=== PATIENT | female | born 1945 | race Caucasian/White ===

== ENCOUNTER → 2017-07-29 17:24 | Emergency (ER) | payer MEDICARE, BC ==
[~2017-07-29 17:24] MED LIST: Cephalexin CAP* 500 MG PO ONE; DOXYcycline CAP(*) 100 MG ONE; DOXYcycline CAP(*) 100 MG PO ONE; NS 0.9% 1000 ML* 1,000 ML IV ONE; ceFAZolin 1 GM VIAL(*) 1 GM in NS 0.9% 50 ML* 50 ML IVPB ONE
[2017-07-29 20:22] LABS: Hematocrit 38 % (35-47); Mean Corpuscular HGB Conc 34 g/dl (31-36); Mean Corpuscular Hemoglobin 31 pg (27-31); Mean Corpuscular Volume 90 fL (80-97); Mean Platelet Volume 7 um3 (7.4-10.4); Red Cell Distribution Width 13 % (10.5-15); White Blood Count 13.2 10^3/ul (3.5-10.8)
--- NOTE | 2017-07-29 20:22 | RAD ---
INDICATION: Wound overlying the second metacarpal the left hand COMPARISON: None. TECHNIQUE: 2 views of the left hand were obtained. FINDINGS: On the lateral view of the left and there is slight cortical disruption along the dorsal aspect of a distal metatarsal head. Overlap of the metatarsals and poor hand positioning prevents determination of which metacarpal this is. Degenerative changes include narrowing of the intercarpal joints as well as the thumb metacarpal trapezium joint. Subchondral lucencies are seen overlying the carpal joints. There is mild narrowing of the interphalangeal joints as well. IMPRESSION: 1. Questionable cortical discontinuity involving the dorsal aspect of one of the left metatarsal distal heads. Overlap of the metatarsals and poor hand positioning prevents confident determination of which metatarsal head versus and whether it corresponds to the patient's superficial wound. If clinically warranted repeat imaging with the hand making the "ok" sign as well as oblique images may be useful. 2. Degenerative changes as described above.
[2017-07-29 20:35] LABS: Albumin 3.9 g/dL (3.2-5.2); BUN/Creatinine Ratio 12.5 (8-20); C Reactive Protein 71.73 mg/L (< 5.00); Calcium 9.7 mg/dL (8.6-10.3); EGFR Non-African American 107.3 (>60); Globulin 3.2 g/dL (2-4); Potassium 3.2 mmol/L (3.5-5.0); Total Bilirubin 0.3 mg/dL (0.2-1.0); Total Protein 7.1 g/dL (6.4-8.9)
--- NOTE | 2017-07-29 21:10 | ED ---
Kimberley Jarrell Alfonso, scribed for Romana Boyd MD on 07/29/17 at 1932 . Upper Extremity Pain - HPI Summary HPI Summary: This patient is a 71 year old F presenting to [facility] accompanied by daughter with a chief complaint of left hand wound since yesterday. The patient rates the pain 1/10 in severity. Symptoms aggravated by nothing. Symptoms alleviated by nothing. Patient reports erythema and red streak. - History of Current Complaint Chief Complaint: EDExtremityUpper Stated Complaint: POSS SEPSIS LT HAND/SENT BY STEFAN Time Seen by Provider: 07/29/17 19:06 Hx Obtained From: Patient Onset/Duration: Started Days Ago, Still Present Timing: Constant Severity Initially: Moderate Severity Currently: Moderate Pain Location: Hand - left Aggravating Factor(s): Nothing Alleviating Factor(s): Nothing Associated Signs & Symptoms: Positive: Other - red streak and erythema - Allergies/Home Medications Allergies/Adverse Reactions: Allergies Allergy/AdvReac Type Severity Reaction Status Date / Time Sulfamethoxazole Allergy Rash Verified 05/02/15 07:54 w/Trimethoprim [From Bactrim] POWDER IN ALL GLOVES Allergy Itching Uncoded 05/02/15 07:54 PMH/Surg Hx/FS Hx/Imm Hx GI History: Reports: Hx Gastroesophageal Reflux Disease - ON PRILOSEC FOR, Hx Hiatal Hernia Musculoskeletal History: Reports: Hx Arthritis - SPINE Sensory History: Reports: Hx Cataracts - BILATERAL, Hx Contacts or Glasses - GLASSES, Hx Hearing Aid - BILATERAL ONLY WEARS IN THE LEFT EAR Opthamlomology History: Reports: Hx Cataracts - BILATERAL, Hx Contacts or Glasses - GLASSES Neurological History: Reports: Hx Seizures - 3 SEIZURES- WHILE BEING SICK- 3 YEARS AGO - Surgical History Surgery Procedure, Year, and Place: 1990- RIGHT LOWER LOBECTOMY. GALLBLADDER AND GALLSTONES REMOVED- 1992-[facility]. 1970- TUBAL LIGATION. ENDOSCOPIES Hx Anesthesia Reactions: Yes - [facility]- HAD A HARD TIME WAKING UP-1992 Infectious Disease History: No Infectious Disease History: Denies: Traveled Outside the [place] in Last 30 Days - Family History Known Family History: Positive: Hypertension - Social History Alcohol Use: None Substance Use Type: Reports: None Smoking Status (MU): Light Every Day Tobacco Smoker Type: Cigarettes Amount Used/How Often: 1/2 PPD X 25 YEARS ON AND OFF Have You Smoked in the Last Year: Yes Review of Systems Negative: Fever Positive: Other - left hand wound, erythema, and red streak. All Other Systems Reviewed And Are Negative: Yes Physical Exam Triage Information Reviewed: Yes Vital Signs On Initial Exam: Initial Vitals Temp Pulse Resp BP Pulse Ox 99.9 F 95 20 160/75 97 07/29/17 17:33 07/29/17 17:33 07/29/17 17:33 07/29/17 17:33 07/29/17 17:33 Vital Signs Reviewed: Yes Appearance: Positive: Well-Appearing, No Pain Distress Skin: Positive: Warm, Skin Color Reflects Adequate Perfusion, Dry, Other - Incision and cautery site at the mid metacarpal of the second finger left hand. Erythema to MPJ joint 2nd and 3rd finger and red streaking up the arm from the 2nd finger. Eyes: Positive: EOMI, HAM ENT: Positive: Pharynx normal, TMs normal Neck: Positive: Supple, Nontender Respiratory/Lung Sounds: Positive: Clear to Auscultation, Breath Sounds Present. Negative: Rales, Rhonchi, Wheezes Cardiovascular: Positive: RRR, Other - No gallop. Negative: Murmur, Rub Abdomen Description: Positive: Nontender, Soft, Other: - No rebound. Negative: Distended, Guarding Bowel Sounds: Positive: Present Musculoskeletal: Positive: Strength/ROM Intact Neurological: Positive: Sensory/Motor Intact, Alert, Oriented to Person Place, Time, CN Intact II-III Psychiatric: Positive: Affect/Mood Appropriate - Abdulkadir Coma Scale Coma Scale Total: 15 Diagnostics - Vital Signs Vital Signs Temp Pulse Resp BP Pulse Ox 07/29/17 17:33 99.9 F 95 20 160/75 97 - Laboratory Lab Results: Lab Results 07/29/17 07/29/17 07/29/17 Range/Units 20:00 20:00 20:00 WBC 13.2 H (3.5-10.8) 10^3/ul RBC 4.20 (4.0-5.4) 10^6/ul Hgb 13.0 (12.0-16.0) g/dl Hct 38 (35-47) % MCV 90 (80-97) fL MCH 31 (27-31) pg MCHC 34 (31-36) g/dl RDW 13 (10.5-15) % Plt Count 443 (150-450) 10^3/ul MPV 7 L (7.4-10.4) um3 Neut % (Auto) 72.3 (38-83) % Lymph % (Auto) 17.6 L (25-47) % Schuyler % (Auto) 8.1 (1-9) % Eos % (Auto) 1.1 (0-6) % Baso % (Auto) 0.9 (0-2) % Absolute Neuts (auto) 9.6 H (1.5-7.7) 10^3/ul Absolute Lymphs (auto) 2.3 (1.0-4.8) 10^3/ul Absolute Monos (auto) 1.1 H (0-0.8) 10^3/ul Absolute Eos (auto) 0.1 (0-0.6) 10^3/ul Absolute Basos (auto) 0.1 (0-0.2) 10^3/ul Absolute Nucleated RBC 0 10^3/ul Nucleated RBC % 0 Sodium 129 L (133-145) mmol/L Potassium 3.2 L (3.5-5.0) mmol/L Chloride 93 L (101-111) mmol/L Carbon Dioxide 28 (22-32) mmol/L Anion Gap 8 (2-11) mmol/L BUN 7 (6-24) mg/dL Creatinine 0.56 (0.51-0.95) mg/dL Est GFR ( Amer) 138.0 (>60) Est GFR (Non-Af Amer) 107.3 (>60) BUN/Creatinine Ratio 12.5 (8-20) Glucose 173 H (70-100) mg/dL Lactic Acid 1.8 (0.5-2.0) mmol/L Calcium 9.7 (8.6-10.3) mg/dL Total Bilirubin 0.30 (0.2-1.0) mg/dL AST 13 (13-39) U/L ALT 12 (7-52) U/L Alkaline Phosphatase 83 (34-104) U/L C-Reactive Protein 71.73 H (< 5.00) mg/L Total Protein 7.1 (6.4-8.9) g/dL Albumin 3.9 (3.2-5.2) g/dL Globulin 3.2 (2-4) g/dL Albumin/Globulin Ratio 1.2 (1-3) Result Diagrams: 07/29/17 20:00 07/29/17 20:00 Lab Statement: Any lab studies that have been ordered have been reviewed, and results considered in the medical decision making process. - Radiology Hand X-Ray Radiology Interpretation Completed By: Radiologist - 1. Questionable cortical discontinuity involving the dorsal aspect of one of the left metatarsal distal heads. Overlap of the metatarsals and poor hand positioning prevents confident determination of which metatarsal head versus and whether it corresponds to the patient's superficial wound. If clinically warranted repeat imaging with the hand making the "ok" sign as well as oblique images may be useful. 2. Degenerative changes as described above. ED physician has reviewed this radiology report and agrees. Course/Dx - Course Course Of Treatment: this is a 71 yo female who is a smoker that describes recent diagnosis of sinusitis for which she is just starting augmentin. She also had a biopsy for a chronic lesion on her left hand that now looks cellulitic. The erythema extends just over the 2nd mcp joint. She ended up triggering sepsis because of her respiratory rate which according to her and her daughter is a little high because of the sinusitis. She is very well appearing. Her wbc is 13 with an elevated crp in the 70's, the xray of her hand shows a possible lifting of the cortex on the lateral film of the 3rd finger. But the cellulitis does not extend to that area nor does she have any swelling or fluctuance or induration there. I discussed admission with the pt but she would like to try it at home. Of note her blood sugar is also a little high here which may need followup. The plan is to change her meds to doxy to treat the sinusitis and mrsa with keflex - Diagnoses Provider Diagnoses: Cellulitis, Sinusitis Discharge - Discharge Plan Condition: Stable Disposition: HOME Prescriptions: Cephalexin CAP* [Keflex CAP*] 500 mg PO QID #28 cap DOXYcycline CAP(*) [DOXYcycline 100MG CAP(*)] 100 mg PO BID #28 cap The documentation as recorded by the Kimberley ching Alfonso accurately reflects the service I personally performed and the decisions made by me, Romana Boyd MD.
[2017-07-29 21:33] VITALS: BP 109/65
== END | disposition home or self-care (01) ==
LOC: ED 17:24
DX: J32.9 Chronic sinusitis, unspecified (principal); L03.90 Cellulitis, unspecified; F17.210 Nicotine dependence, cigarettes, uncomplicated
CPT/HCPCS: 36415; 80053; 83605; 85025; 86140; 87040; 99283; A9270-GY; J0690

== ENCOUNTER 2018-06-04 11:15 | Emergency (ER) | payer MEDICARE, BC ==
[2018-06-04 11:44] VITALS: BP 149/70
--- NOTE | 2018-06-04 13:01 | UC ---
Laceration HPI - HPI Summary HPI Summary: "Y" shaped altman tear on back of right had. occurred yesterday and a piece of metal in the freezer. no bleeding but does have some redness and she wants to assure it is not infected - History Of Current Complaint Chief Complaint: UCLaceration Stated Complaint: LAC ON HAND Time Seen by Provider: 06/04/18 12:38 Hx Obtained From: Patient Laceration Location: Hand - back of right hand Mechanism Of Injury: Sharp Trauma Onset/Duration: Sudden Onset Pain Intensity: 2 Pain Scale Used: 0-10 Numeric Aggravating Factors: Nothing - Allergies/Home Medications Allergies/Adverse Reactions: Allergies Allergy/AdvReac Type Severity Reaction Status Date / Time sulfamethoxazole Allergy Rash Verified 06/04/18 11:31 [From Bactrim] trimethoprim [From Bactrim] Allergy Rash Verified 06/04/18 11:31 [email or web address] [From Chantix] Allergy Rash Verified 06/04/18 11:31 POWDER IN ALL GLOVES Allergy Itching Uncoded 06/04/18 11:31 Home Medications: Home Medications Acetaminophen [Acetaminophen Extra Strength] 500 mg PO ONCE 06/04/18 [History Confirmed 06/04/18] Albuterol inh POWDER (NF) [Proair Respiclick] 4 puff INH BID 06/04/18 [History Confirmed 06/04/18] Omeprazole CAP* [Prilosec CAP* 20 MG] 80 mg PO BID 06/04/18 [History Confirmed 06/04/18] ceFUROXime TAB(*) [Ceftin TAB 250 MG(*)] 500 mg PO BID 06/04/18 [History Confirmed 06/04/18] predniSONE [Prednisone 20 MG TAB] 20 mg PO QID 06/04/18 [History Confirmed 06/04] PMH/Surg Hx/FS Hx/Imm Hx Previously Healthy: No Respiratory History: Asthma GI/ History: Gastroesophageal Reflux - Surgical History Surgical History: Yes Surgery Procedure, Year, and Place: 1990- RIGHT LOWER LOBECTOMY. GALLBLADDER AND GALLSTONES REMOVED- 1992-[facility]. 1970- TUBAL LIGATION. ENDOSCOPIES - Family History Known Family History: Positive: Hypertension - Social History Occupation: Retired Lives: With Family Alcohol Use: None Substance Use Type: None Smoking Status (MU): Former Smoker Type: Cigarettes Amount Used/How Often: 1/2 PPD X 25 YEARS ON AND OFF Have You Smoked in the Last Year: Yes When Did the Patient Quit Smoking/Using Tobacco: November 2017 - Immunization History Hx Tetanus, Diphtheria Vaccination: Yes - 2014 Vaccination Up to Date: Yes Review of Systems Constitutional: Negative Skin: Other - y shaped lacreation with surrounding erythema and bruising Eyes: Negative ENT: Negative Respiratory: Negative Cardiovascular: Negative Gastrointestinal: Negative Genitourinary: Negative Motor: Negative Neurovascular: Negative Musculoskeletal: Negative Neurological: Negative Psychological: Negative Is Patient Immunocompromised?: No All Other Systems Reviewed And Are Negative: Yes Physical Exam Triage Information Reviewed: Yes Appearance: Well-Appearing, No Pain Distress, Well-Nourished Vital Signs: Initial Vital Signs Temp 98.1 F 06/04/18 11:37 Pulse 84 06/04/18 11:37 Resp 18 06/04/18 11:37 BP 149/70 06/04/18 11:37 Pulse Ox 98 06/04/18 11:37 Vital Signs Reviewed: Yes Eye Exam: Normal Eyes: Positive: Conjunctiva Clear ENT Exam: Normal ENT: Positive: Normal ENT inspection, Hearing grossly normal. Negative: Pharynx normal, Nasal congestion, Trismus, Muffled voice, Hoarse voice Neck exam: Normal Neck: Positive: Supple, Nontender, No Lymphadenopathy Respiratory Exam: Normal Respiratory: Positive: Chest non-tender, No respiratory distress, No accessory muscle use Cardiovascular Exam: Normal Cardiovascular: Positive: RRR, Pulses Normal, Brisk Capillary Refill Musculoskeletal Exam: Normal Musculoskeletal: Positive: Strength Intact, ROM Intact, No Edema Neurological Exam: Normal Neurological: Positive: Alert, Muscle Tone Normal Psychological Exam: Normal Skin: Positive: Other - superficial "Y" shaped skin tear back of right hand well approximated no bleeding surround red bruised skin Laceration Course/Dx - Course/Dx Course Of Treatment: mild soap and water wash, cover with telfa, observe for infection follow with pcp - Differential Dx - Laceration/Wound Provider Diagnoses: skin tear right back of hand, elevated blood pressure without hx of hypertension Discharge - Sign-Out/Discharge Documenting (check all that apply): Patient Departure - Discharge Plan Condition: Stable Disposition: HOME Patient Education Materials: Hypertension (ED), Skin Tear (ED) Referrals: Andrea Su MD [Primary Care Provider] - 1 Week - Billing Disposition and Condition Condition: STABLE Disposition: Home
== END 2018-06-04 12:51 | disposition home or self-care (01) ==
LOC: UCEAST 11:15
DX: S61.412A Laceration without foreign body of left hand, initial encounter (principal); W26.8XXA Contact with other sharp object(s), not elsewhere classified, initial encounter; Y93.9 Activity, unspecified; Y99.9 Unspecified external cause status; R03.0 Elevated blood-pressure reading, without diagnosis of hypertension
CPT/HCPCS: 99212; G0463

== ENCOUNTER 2018-08-17 08:20 | Emergency (ER) | payer MEDICARE, BC ==
[2018-08-17 08:34] VITALS: BP 134/71
--- NOTE | 2018-08-17 09:45 | UC ---
Throat Pain/Nasal Ramon HPI - HPI Summary HPI Summary: 72 yo female presents with productive cough, runny nose, and right lower rib pain. She tells me that she had a partial lobectomy 30+ years ago and that whenever she gets bronchitis or an upper resp illness, she will have discomfort in this area. About a week ago she started with a runny nose and dry cough. Over the last 2-3 days her cough has been productive. She has not been taking anything OTC. She has a nebulizer at home, but has not been using it. Denies fever, chills, SOB, chest pain. - History of Current Complaint Chief Complaint: UCRespiratory Stated Complaint: COUGH RESP ISSUE Time Seen by Provider: 08/17/18 09:45 Hx Obtained From: Patient Onset/Duration: Gradual Onset Severity: Mild Pain Intensity: 2 Pain Scale Used: 0-10 Numeric Cough: Productive - Allergies/Home Medications Allergies/Adverse Reactions: Allergies Allergy/AdvReac Type Severity Reaction Status Date / Time sulfamethoxazole Allergy Rash Verified 08/17/18 08:37 [From Bactrim] trimethoprim [From Bactrim] Allergy Rash Verified 08/17/18 08:37 [email or web address] [From Chantix] Allergy Rash Verified 08/17/18 08:37 POWDER IN ALL GLOVES Allergy Itching Uncoded 08/17/18 08:37 Home Medications: Home Medications Fluticasone NASAL SPRAY 50MCG* [Flonase NASAL SPRAY 50MCG*] 2 spray BOTH NARES DAILY 08/17/18 [History Confirmed 08/17/18] PMH/Surg Hx/FS Hx/Imm Hx Cardiovascular History: Cardiac Disease, Hypertension GI/ History: Gastroesophageal Reflux - Surgical History Surgical History: Yes Surgery Procedure, Year, and Place: 1990- RIGHT LOWER LOBECTOMY. GALLBLADDER AND GALLSTONES REMOVED- 1992-[facility]. 1970- TUBAL LIGATION. ENDOSCOPIES - Family History Known Family History: Positive: Hypertension - Social History Occupation: Retired Lives: With Family Alcohol Use: None Substance Use Type: None Smoking Status (MU): Former Smoker Type: Cigarettes Amount Used/How Often: 1/2 PPD X 25 YEARS ON AND OFF Have You Smoked in the Last Year: Yes When Did the Patient Quit Smoking/Using Tobacco: November 2017 - Immunization History Hx Tetanus, Diphtheria Vaccination: Yes - 2014 Vaccination Up to Date: Yes Review of Systems Constitutional: Negative Skin: Negative Eyes: Negative ENT: Nasal Discharge, Sinus Congestion Respiratory: Cough Cardiovascular: Negative Gastrointestinal: Negative Neurovascular: Negative Neurological: Negative Psychological: Negative All Other Systems Reviewed And Are Negative: Yes Physical Exam - Summary Physical Exam Summary: GENERAL: NAD. WDWN. No pain distress. SKIN: No rashes, sores, lesions, or open wounds. HEENT: Head: AT/NC Eyes: Conjunctiva clear without inflammation or discharge. Ears: Hearing grossly normal. TMs intact, no bulging, erythema, or edema. Nose: Nasal mucosa pink and moist. Mild TTP maxillary sinus. NTTP frontal sinus. Throat: Posterior oropharynx without exudates, erythema, or tonsillar enlargement. Uvula midline. NECK: Supple. Nontender. No lymphadenopathy. CHEST: Mild wheezing throughout with moderate in right lung. No r/r. No accessory muscle use. Breathing comfortably and in no distress. CV: RRR. Without m/r/g. Pulses intact. Cap refill <2seconds NEURO: Alert. PSYCH: Age appropriate behavior. Triage Information Reviewed: Yes Vital Signs: Initial Vital Signs Temp 97.3 F 08/17/18 08:30 Pulse 85 08/17/18 08:30 Resp 18 08/17/18 08:30 BP 134/71 08/17/18 08:30 Pulse Ox 98 08/17/18 08:30 Vital Signs Reviewed: Yes Throat Pain/Nasal Course/Dx - Course Course Of Treatment: Pt declined CXR or duoneb treatment today. Will rx for Augmentin and Albuterol inhaler as she prefers this over her nebulizer. Discussed that if she does not improve or her symptoms worsen - to be rechecked with a likely CXR at that time. - Differential Dx/Diagnosis Provider Diagnoses: Cough. Sinus congestion Discharge - Sign-Out/Discharge Documenting (check all that apply): Patient Departure All imaging exams completed and their final reports reviewed: No Studies - Discharge Plan Condition: Stable Disposition: HOME Prescriptions: Albuterol HFA INHALER* [Ventolin HFA Inhaler*] 1 - 2 puff INH Q6H PRN #1 mdi PRN Reason: Sob/Wheezing Amoxicillin/Clavulanate TAB* [Augmentin TAB 875*] 875 mg PO BID #20 tab Patient Education Materials: Acute Bronchitis (ED) Referrals: Andrea Su MD [Primary Care Provider] - Additional Instructions: If you develop a fever, shortness of breath, chest pain, new or worsening symptoms - please call your PCP or go to the ED. - Billing Disposition and Condition Condition: STABLE Disposition: Home
== END 2018-08-17 09:59 | disposition home or self-care (01) ==
LOC: UCEAST 08:20
DX: R05 Cough (principal); R09.81 Nasal congestion; Z88.2 Allergy status to sulfonamides; Z88.8 Allergy status to other drugs, medicaments and biological substances; Z87.891 Personal history of nicotine dependence
CPT/HCPCS: 99212; G0463

== ENCOUNTER 2019-02-15 11:59 | Inpatient (IN) | payer MEDICARE, BC ==
--- NOTE | 2019-02-15 12:10 | ED ---
Palpitations / Dysrhythmia - HPI Summary HPI Summary: A 73 y/o F without PMHx of a-fib was brought in by ambulance presents to ED with a-fib en route as seen on EKG by EMS. Associated sx: n/v/d, fever (100.9 F in ED) cough, syncopal episodes 4x. The syncope was witnessed by her , and one time she hit the front of her head on the floor. She stood up and felt her BP drop. She states thinking she has a L ear infection starting. Her PCP is Dr. Su at [place]. - History of Current Complaint Chief Complaint: EDDysrhythmPalp Hx Obtained From: Patient, EMS Onset/Duration: Still Present Timing: Constant Severity Initially: Moderate Severity Currently: Moderate Character: Irregular - afib Associated Signs & Symptoms: Syncope, Nausea, Vomiting - Allergy/Home Medications Allergies/Adverse Reactions: Allergies Allergy/AdvReac Type Severity Reaction Status Date / Time sulfamethoxazole Allergy Rash Verified 08/17/18 08:37 [From Bactrim] trimethoprim [From Bactrim] Allergy Rash Verified 08/17/18 08:37 varenicline [From Chantix] Allergy Rash Verified 08/17/18 08:37 POWDER IN ALL GLOVES Allergy Itching Uncoded 08/17/18 08:37 Home Medications: Home Medications Albuterol Sulfate 3 ml INH QID 02/15/19 [History Confirmed 02/15/19] Albuterol inh POWDER (NF) [Proair Respiclick] 2 puff INH Q4HR PRN 02/15/19 [ History Confirmed 02/15/19] Albuterol/Ipratropium RESP(NF) [Combivent Respimat(NF)] 1 aer INH QID 02/15/19 [ History Confirmed 02/15/19] Aspirin EC TAB* [Ecotrin EC Low Dose 81 MG*] 81 mg PO DAILY 02/15/19 [History Confirmed 02/15/19] B2/Vits A,C,E/Lut/Zeaxanth/Min [Icaps Tablet] 2 cap PO DAILY 02/15/19 [History Confirmed 02/15/19] Fluticasone-Salmeterol 100-50* [Advair Diskus 100-50*] 1 puff INH BID 02/15/19 [ History Confirmed 02/15/19] Ibuprofen TAB* [Motrin TAB* 600 MG] 600 mg PO Q6H PRN 02/15/19 [History Confirmed 02/15/19] Lansoprazole SOLUTAB* [Prevacid SOLUTAB*] 30 mg PO BID 02/15/19 [History Confirmed 02/15/19] Multivitamins/Minerals TAB* [Theragran/minerals TAB*] 1 tab PO DAILY 02/15/19 [ History Confirmed 02/15/19] Nicotine Inhaler* 10 mg INH Q2H PRN 02/15/19 [History Confirmed 02/15/19] PMH/Surg Hx/FS Hx/Imm Hx Previously Healthy: No Respiratory History: Reports: Hx Chronic Obstructive Pulmonary Disease (COPD) GI History: Reports: Hx Gastroesophageal Reflux Disease - ON PRILOSEC FOR, Hx Hiatal Hernia Musculoskeletal History: Reports: Hx Arthritis - SPINE Sensory History: Reports: Hx Cataracts - BILATERAL, Hx Contacts or Glasses - GLASSES, Hx Hearing Aid - BILATERAL ONLY WEARS IN THE LEFT EAR Opthamlomology History: Reports: Hx Cataracts - BILATERAL, Hx Contacts or Glasses - GLASSES Neurological History: Reports: Hx Seizures - 3 SEIZURES- WHILE BEING SICK- 3 YEARS AGO - Surgical History Surgery Procedure, Year, and Place: 1990- RIGHT LOWER LOBECTOMY. GALLBLADDER AND GALLSTONES REMOVED- 1992-[facility]. 1970- TUBAL LIGATION. ENDOSCOPIES Hx Anesthesia Reactions: Yes - [facility]- HAD A HARD TIME WAKING UP-1992 Infectious Disease History: No Infectious Disease History: Denies: Traveled Outside the [place] in Last 30 Days - Family History Known Family History: Positive: Hypertension - Social History Occupation: Retired Lives: With Family Alcohol Use: None Substance Use Type: Reports: None Smoking Status (MU): Former Smoker Type: Cigarettes Amount Used/How Often: 1/2 PPD X 25 YEARS ON AND OFF Have You Smoked in the Last Year: Yes Review of Systems Positive: Fever Positive: Palpitations - afib Positive: Cough Positive: Vomiting, Diarrhea, Nausea Positive: Syncope All Other Systems Reviewed And Are Negative: Yes Physical Exam - Summary Physical Exam Summary: Appearance: The patient is well-nourished in no acute distress and in no acute pain. Skin: The skin is warm and dry and skin color reflects adequate perfusion. HEENT: The head is normocephalic and atraumatic. The pupils are equal and reactive. The conjunctivae are clear and without drainage. Nares are patent and without drainage. Mouth reveals moist mucous membranes and the throat is without erythema and exudate. The external ears are intact. The ear canals are patent and without drainage. The tympanic membranes are intact. Neck: the neck is supple with full range of motion and non-tender. There are no carotid bruits. There is no neck vein distension. Respiratory: Chest is non-tender. Rhonchi and egophony in R upper lobe Cardiovascular: Heart is irregularly irregular. There is no murmur or rub auscultated. There is no peripheral edema and pulses are symmetrical and equal. Abdomen: The abdomen is soft and non-tender. There are normal bowel sounds heard in all four quadrants and there is no organomegaly palpated. Musculoskeletal: There is no back tenderness noted. Extremities are non-tender with full range of motion. There is good capillary refill. There is no peripheral edema or calf tenderness elicited. Neurological: Patient is alert and oriented to person, place and time. The patient has symmetrical motor strength in all four extremities. Cranial nerves are grossly intact. Deep tendon reflexes are symmetrical and equal in all four extremities. Psychiatric: The patient has an appropriate affect and does not exhibit any anxiety or depression. Triage Information Reviewed: Yes Vital Signs On Initial Exam: Initial Vitals Temp Pulse Resp BP Pulse Ox 100.9 F 117 16 123/74 93 02/15/19 12:01 02/15/19 12:01 02/15/19 12:01 02/15/19 12:01 02/15/19 12:01 Vital Signs Reviewed: Yes Diagnostics - Vital Signs Vital Signs Temp Pulse Resp BP Pulse Ox 02/15/19 12:01 100.9 F 117 16 123/74 93 - Laboratory Result Diagrams: 02/15/19 12:48 02/15/19 12:48 Lab Statement: Any lab studies that have been ordered have been reviewed, and results considered in the medical decision making process. - Radiology CXR Radiology Interpretation Completed By: Radiologist Summary of Radiographic Findings: IMPRESSION: POSTSURGICAL CHANGES, NO EVIDENCE FOR ACUTE FINDING. ED provider has reviewed this report. - EKG 1218 Summary of EKG Findings: MAT. Non-specific inferior changes. Re-Evaluation - Re-Evaluation 1 Re-Evaluation Time: 14:15 Change: Improved Comment: Pt feeling better, discussing reults with pt, and possibility of admission. Course/Dx - Course Course Of Treatment: Ms. Mack presented by EMS with a history of having nausea vomiting diarrhea for a couple of days and then 4 episodes of syncope today. During transport in she was noted to go in and out of atrial fibrillation with RVR. She has no history of this. She was nontoxic in appearance when she arrived but looked quite dehydrated clinically. She was given IV fluids and kept on the monitor and initially was in a sinus rhythm with some PACs but then did go into atrial fibrillation with rapid ventricular response. At that point Cardizem was ordered but then held when she came back out of it. The hospitalist service was contacted for admission. - Diagnoses Provider Diagnoses: Dehydration, New onset a-fib - Physician Notifications Discussed Care Of Patient With: Erin Betancur - hospitalist Time Discussed With Above Provider: 14:18 Instructed by Provider To: Admit As Inpatient - Critical Care Time Critical Care Time: 30-74 min - 34 mins CCT Discharge - Sign-Out/Discharge Documenting (check all that apply): Patient Departure - ADMIT Patient Received Moderate/Deep Sedation with Procedure: No - Discharge Plan Condition: Stable Disposition: ADMITTED TO [facility] - Billing Disposition and Condition Condition: STABLE Disposition: Admitted to [facility] - Attestation Statements Document Initiated by Kodyibe: Yes Documenting Scribe: Jennifer Padron Provider For Whom Scribe is Documenting (Include Credential): Dr. Bc Lazo MD Scribe Attestation: IJennifer scribed for Dr. Bc Lazo MD on 02/15/19 at 2119. Scribe Documentation Reviewed: Yes Provider Attestation: The documentation as recorded by the Jennifer ching accurately reflects the service I personally performed and the decisions made by me, Dr. Bc Lazo MD Status of Scribe Document: Viewed
[2019-02-15 12:41] LABS: Influenza A Molecular NEGATIVE (Negative); Influenza B Molecular NEGATIVE (Negative)
[2019-02-15] MEDS: NS 0.9% 1000 ML** 1,000 ML IV.FLUID IV ONE ×2 (12:50→12:52)
[2019-02-15 13:09] LABS: ABS Basophils 0 10^3/ul (0-0.2); ABS Eosinophils 0 10^3/ul (0-0.6); ABS Lymphocytes 0.7 10^3/ul (1.0-4.8); ABS Monocytes 0.4 10^3/ul (0-0.8); ABS Neutrophils 11.2 10^3/ul (1.5-7.7); ABS Nucleated RBC 0 10^3/ul; Eosinophil % 0.1 %; Hematocrit 40 % (33-41); Hemoglobin 13.6 g/dL (12.0-16.0); Lymphocyte % 5.3 %; Mean Corpuscular HGB Conc 34 g/dL (31-36); Mean Corpuscular Hemoglobin 30 pg (27-31); Mean Corpuscular Volume 89 fL (80-97); Mean Platelet Volume 7.3 fL (7.4-10.4); Nucleated Red Blood Cells % 0; Platelet Count 312 10^3/uL (150-450); Red Blood Count 4.53 10^6 /uL (3.70-4.87); Red Cell Distribution Width 13 % (10.5-15); White Blood Count 12.3 10^3/uL (3.5-10.8)
[2019-02-15 13:23] LABS: Activated Partial Thrombo Time 32.2 seconds (26.0-36.3); INR 0.99 (0.77-1.02)
[2019-02-15 13:27] LABS: Troponin I 0.01 ng/mL (<0.04)
[2019-02-15 13:28] LABS: Albumin 3.5 g/dL (3.2-5.2); Albumin/Globulin Ratio 1.6 (1-3); BUN/Creatinine Ratio 21.9 (8-20); C Reactive Protein 23.49 mg/L (<8.01); Calcium 8.5 mg/dL (8.6-10.3); EGFR African American 110.7 (>60); EGFR Non-African American 91.5 (>60); Globulin 2.2 g/dL (2-4); Potassium 3.5 mmol/L (3.5-5.0); Total Bilirubin 0.7 mg/dL (0.2-1.0); Total Protein 5.7 g/dL (6.4-8.9)
[2019-02-15 13:36] LABS: Urine Appearance Cloudy; Urine Bacteria 1+ (Absent); Urine Bilirubin Negative (Negative); Urine Blood 2+ (Negative); Urine Color Yellow; Urine Glucose Negative (Negative); Urine Ketones Trace (Negative); Urine Nitrite Negative (Negative); Urine Protein Negative (Negative); Urine Red Blood Cell 2+(6-10/hpf) (Absent); Urine Squamous Epithelial Cell Present (Absent); Urine Urobilinogen Negative (Negative); Urine White Blood Cell Trace(0-5/hpf) (Absent)
[2019-02-15] MEDS ORDERED: Diltiazem IV push/loading dose 5 MG/ML 5 ML vial (25 mg) ONE (14:19)
[2019-02-15] MEDS ORDERED: Diltiazem IV push/loading dose 5 MG/ML 5 ML vial (25 mg) IV SLOW PU ONE (14:20)
[2019-02-15] MEDS ORDERED: Nicotine Inhaler* 10 MG AMP INH PRN (14:41)
[2019-02-15] MEDS ORDERED: Albuterol/Ipratropium NEB.SOL* Albuterol 2.5 MG/Ipratropium 0.5 MG 3 ML INH PRN (15:23)
[2019-02-15] MEDS: Albuterol HFA INHALER* 8 gm MDI INH PRN ×2 (17:20→23:21)
[2019-02-15] MEDS: NS 0.9% 1000 ML** 1,000 ML IV SCH (17:29)
[2019-02-15] MEDS: Enoxaparin(*) 40 MG/0.4 ML SYR SUBCUT SCH (17:33)
[2019-02-15] MEDS: Pantoprazole TAB * 40 MG TAB PO SCH (17:43)
[2019-02-15] MEDS: Ondansetron INJ* 2 MG/ML VIAL IV PRN (18:14)
[2019-02-15 19:15] LABS: Magnesium 1.4 mg/dL (1.9-2.7)
[2019-02-15] MEDS ORDERED: Magnesium Sulf 4 GM/100 ML IV* 4,000 MG/100 ML BAG IVPB ONE (19:16)
--- NOTE | 2019-02-15 19:20 | PN ---
Subjective Date of Service: 02/15/19 Interval History: Magnesium 1.4. Pt has h/o seizure while inpatient due to low magnesium. PLAN: Magnesium 4 mg for now Recheck Mg in a.m. Objective Active Medications: Albuterol (Ventolin Hfa Inhaler*) 2 puff INH Q4HR PRN PRN Reason: SHORTNESS OF BREATH Last Admin: 02/15/19 17:20 Dose: 2 puff Albuterol/Ipratropium (Duoneb (Albuterol 2.5 Mg/Ipratropium 0.5 Mg)) 1 neb INH Q4H PRN PRN Reason: SOB/WHEEZING Aspirin (Aspirin Ec Tab*) 81 mg PO DAILY [facility] Enoxaparin Sodium (Lovenox(*)) 40 mg SUBCUT Q24H [facility] Last Admin: 02/15/19 17:33 Dose: Not Given Sodium Chloride (Ns 0.9% 1000 Ml) 1,000 mls @ 125 mls/hr IV PER RATE [facility] Last Admin: 02/15/19 17:29 Dose: 125 mls/hr Magnesium Sulfate (Magnesium Sulf 4 Gm/100 Ml Iv*) 4,000 mg in 100 mls @ 33.333 mls/hr IVPB ONCE ONE Stop: 02/15/19 22:15 Magnesium Oxide (Magox 400 Tab*) 200 mg PO DAILY [facility] Multivitamins/Minerals (Theragran/Minerals Tab*) 1 tab PO DAILY [facility] Nicotine (Nicotine Inhaler*) 10 mg INH Q2H PRN PRN Reason: CRAVINGS Ondansetron HCl (Zofran Inj*) 4 mg IV Q6H PRN PRN Reason: NAUSEA Last Admin: 02/15/19 18:14 Dose: 4 mg Pantoprazole Sodium (Protonix Tab*) 40 mg PO 00,2099 [facility] Last Admin: 02/15/19 17:43 Dose: 40 mg Vital Signs - 8 hr 02/15/19 02/15/19 02/15/19 12:01 12:03 12:12 Temperature 100.9 F Pulse Rate 117 98 95 Respiratory 16 24 23 Rate Blood Pressure 123/74 123/74 (mmHg) O2 Sat by Pulse 93 95 96 Oximetry 02/15/19 02/15/19 02/15/19 12:14 12:23 12:48 Temperature Pulse Rate 99 94 Respiratory 16 22 Rate Blood Pressure 119/65 (mmHg) O2 Sat by Pulse 98 90 Oximetry 02/15/19 02/15/19 02/15/19 13:01 13:17 13:44 Temperature Pulse Rate 97 90 94 Respiratory 28 25 21 Rate Blood Pressure 118/76 114/73 (mmHg) O2 Sat by Pulse 94 96 94 Oximetry 02/15/19 02/15/19 02/15/19 14:01 14:14 14:16 Temperature Pulse Rate 181 179 Respiratory 31 28 19 Rate Blood Pressure 82/66 98/57 (mmHg) O2 Sat by Pulse 93 92 Oximetry 02/15/19 02/15/19 02/15/19 14:22 14:44 15:00 Temperature Pulse Rate 103 100 103 Respiratory 32 27 20 Rate Blood Pressure 107/67 117/63 (mmHg) O2 Sat by Pulse 94 94 93 Oximetry 02/15/19 02/15/19 02/15/19 15:14 15:44 16:00 Temperature Pulse Rate 97 96 98 Respiratory 24 27 24 Rate Blood Pressure 106/68 116/70 (mmHg) O2 Sat by Pulse 92 90 91 Oximetry 02/15/19 02/15/19 02/15/19 16:14 16:46 17:10 Temperature 97.8 F Pulse Rate 96 105 Respiratory 23 25 22 Rate Blood Pressure 110/66 120/74 137/61 (mmHg) O2 Sat by Pulse 90 89 Oximetry 02/15/19 17:32 Temperature 99 F Pulse Rate 92 Respiratory 26 Rate Blood Pressure 116/70 (mmHg) O2 Sat by Pulse 96 Oximetry Oxygen Devices in Use Now: None Result Diagrams: 02/15/19 12:48 02/15/19 12:48 Assess/Plan/Problems-Billing Assessment:
--- NOTE | 2019-02-15 19:46 | HP ---
ATTENDING ADDENDUM NOW INCLUDED ON THIS REPORT CC: Dr. Su * HISTORY AND PHYSICAL: DATE OF ADMISSION: 02/15/19 PRIMARY CARE PROVIDER: Dr. Su at [place]. ATTENDING PHYSICIAN: Dr. Davis * (dictated by REGGIE Hall). CHIEF COMPLAINT: Nausea, vomiting, diarrhea, syncope, palpitations. HISTORY OF PRESENT ILLNESS: Ms. Mack is a 73-year-old female with a past medical history of COPD, GERD, and multiple seizures due to dehydration and electrolyte abnormalities during admission years ago, who presented to the ER today with complaints of nausea, vomiting, diarrhea, syncope, and palpitations. The patient states that she went to bed last night at 8 p.m. feeling well. She woke around 10 p.m. with nausea and vomiting followed later by diarrhea. She states that she ate a normal meal at home, she then developed these symptoms. She does note that her had vomiting recently and in the week prior that her daughter's family and children had bouts of nausea and vomiting or diarrhea. The patient states that she vomited approximately 10 times since last night and that she has had greater than 5 bouts of diarrhea. She describes the stool as loose and without blood or mucus. She notes that she has tolerating oral intake of water and Gatorade, although she has not attempted to eat any food yet today. The patient also states that she has had 4 witnessed episodes of syncope with loss of consciousness. There is an associated prodrome of nausea and lightheadedness. She states that this has all occurred today. She states that it has only occurred when she goes from sitting to standing. She arrived with complaints of palpitations as well. She states that she has had this for years and it typically only happens on occasions associated with stress. This time today, it has been constant. The patient also complains of fever, occasional wheezing. She complains of shortness of breath, which she has had for approximately the last year. She states that it has gotten worse. It is noted that she has COPD as well as lobectomy of the right lung. The patient denies cough, abdominal pain, and history of syncopal episodes in the past. In the emergency room, the patient received 1.6 L of IV fluids as well as diltiazem IV for tachycardia. The hospitalist team was asked to evaluate for admission. PAST MEDICAL HISTORY: 1. COPD. 2. GERD. 3. Hiatal hernia. 4. Spinal arthritis. 5. History of lung cancer, treatment involved lobectomy and chemo. 6. History of seizures while hospitalized and acutely ill. PAST SURGICAL HISTORY: Right lung lobectomy in 1990, left hand, tubal ligation , cholecystectomy. HOME MEDICATIONS: 1. Nicotine inhaler 10 mg inhalation q.2 hours p.r.n. 2. Icaps tablet 2 caps p.o. daily. 3. Multivitamins and minerals 1 tab p.o. daily. 4. Magnesium oxide 200 mg p.o. daily. 5. Lansoprazole 30 mg p.o. b.i.d. 6. Albuterol/ipratropium Respimat 1 inhalation four times a day. 7. Ibuprofen 600 mg p.o. q.6 hours p.r.n. 8. Cetirizine 10 mg p.o. daily p.r.n. 9. Aspirin 81 mg p.o. daily. 10. ProAir RespiClick 2 puffs inhalation q.4 hours p.r.n. DRUG ALLERGIES: BACTRIM, rash; PRAETORIAN GLOVES, itching. FAMILY HISTORY: Positive for hypertension, heart disease, CVA, diabetes mellitus. Negative for cancer. SOCIAL HISTORY: The patient is a former smoker. She used to smoke approximately half a pack per day for 25 years intermittently. She denies use of alcohol. She denies use of illicit drugs. She lives at home with her and grandson. She is retired. In the event that she is unable to make her own medical decisions, she has appointed her daughter, Zoraida Warner, phone number [phone], to be her surrogate decision maker. REVIEW OF SYSTEMS: A 10-point review of systems was performed and all the pertinent positives and negatives are in the HPI, all other systems are negative. PHYSICAL EXAMINATION GENERAL: Ms. Mack is a well-developed, well-nourished, older white woman, who is sitting up in bed. She appears pale, but is in no acute distress. She does appear acutely ill and fatigued although she is alert and responsive throughout our conversation. VITAL SIGNS: Temperature 100.9 temporal, heart rate 91, respiratory rate 28, oxygen saturation 94% on room air, blood pressure 119/65. HEENT: Visual [place] are grossly intact. The pupils are equally round and reactive to light. Extraocular movements are intact. The sclerae are without icterus. Oral mucous membranes are dry. There are no lesions. The pharynx is clear. NECK: Trachea midline. No lymphadenopathy. CARDIOVASCULAR: The patient is tachycardic at times. Rhythm is regular. S1, S2 present. There are no murmurs, rubs, or gallops. There is no JVD. RESPIRATORY: Symmetrical chest expansion with no use of accessory muscles. Diffuse wheeze noted throughout that is more prominent in right upper lobe compared with other lung [place] ABDOMEN: Bowel sounds are hypoactive throughout. The abdomen is soft. There is no tenderness to deep or light palpation. There is no hepatosplenomegaly. EXTREMITIES: Skin is warm and smooth bilaterally. There is no edema, clubbing , or cyanosis. Radial and pedal pulses are palpable. NEURO: The patient is awake, alert and oriented x3. She is able to move all her extremities. SKIN: Skin is grossly intact without lesions. DIAGNOSTIC STUDIES/LAB DATA: Chest x-ray, 02/15/19, impression: Postsurgical changes, no evidence for acute findings. EKG, 02/15/19, sinus tachycardia with rate greater than 99, premature atrial complexes. WBC 12.3, RBC 4.53, Hgb 13.6, Hct 40, platelets 312. Sodium 126, potassium 3.5 , chloride 95, carbon dioxide 22, BUN 14, creatinine 0.64, lactic acid 0.9, calcium 8.5. Troponin 0.01. CRP 23.49. Urine with trace ketones, 2+ blood, trace leukocyte esterase, 2+ rbc, presence of squamous epithelial cells, 1+ urine bacteria, presence of hyaline casts. Influenza A and B negative. ASSESSMENT AND PLAN: Ms. Mack is a 73-year-old female with a past medical history as described above, who presented to the ER today with complaints of nausea, vomiting, diarrhea, syncope, palpitations. The patient will be admitted for: 1. Sepsis. The patient has leukocytosis, tachycardia, tachypnea, and is febrile. It is suspected that this is related to gastroenteritis, which has caused nausea, vomiting, and diarrhea. The patient is not found to have a lactic acidosis. She does have an elevated CRP as well as minor electrolyte abnormalities. She appears to be dehydrated. The patient does note that she has tolerated water and some Gatorade earlier today. At this point, we will continue IV fluids at 125 per hour. She will be placed on a clear liquid diet with instructions to advance as tolerated. Zofran will be ordered p.r.n. nausea. 2. Syncope. This is an acute syncope x4 today with loss of consciousness. There was an associated prodrome. The patient reports no history of syncope in the past. This may be related to dehydration. The patient will be admitted and placed on telemetry to assess for arrhythmias. An echo will also be ordered for the morning. 3. Tachycardia. In the ER, the patient was found to be tachycardic. There was speculation that this was atrial fibrillation, although there is no record. An EKG was done and showed sinus tachycardia with premature atrial complexes. The appearance on EKG is that of multifocal atrial tachycardia. The patient again will be placed on telemetry overnight to assess for any arrhythmias. An EKG will be ordered for the morning. 4. Chronic obstructive pulmonary disease. The patient is noted to have some wheezing on auscultation. She states that she has not had her inhalers yet today. We will continue her home inhalers with one ordered for now and reassess need for other interventions such as prednisone. 5. Gastroesophageal reflux disease. The patient will be continued on home dose of lansoprazole. 6. Code status. Full code. 7. FEN. The patient will be continued on normal saline at a rate of 125 per hour due to dehydration. She will be placed on clear liquid diet, advance as tolerated. 8. DVT prophylaxis. According to the DVT risk assessment, the patient scores a 2 and is medium risk. She will be placed on Lovenox 40 q.24 hours. TIME SPENT: Approximately 60 minutes was spent on this admission, greater than half that time was spent with the patient and family obtaining history, performing physical, and reviewing the plan of care. Case has been reviewed with my attending, Dr. Davis, who is in agreement with the plan of care. REGGIE DUNHAM ATTENDING ADDENDUM: PRIMARY CARE PROVIDER: Dr. Su. HISTORY OF PRESENT ILLNESS: The case was reviewed and discussed with REGGIE Hall, and the patient was also evaluated at bedside. Mrs. Mack is a 73-year-old lady with a past medical history of lung cancer, depression, prior seizures in the setting of diarrhea, dehydration, and electrolyte imbalances who presents to the emergency room with complaints of nausea, vomiting, and diarrhea. She recently returned from a trip to [place] and her developed the same symptoms over the weekend and she developed the symptoms overnight. She states that yesterday, during the day, she was feeling well, went to bed at 8 p.m., and woke up around 10 p.m. with nausea and vomiting. She thinks she had more than 10 episodes of vomiting and towards the end, it was just dry heaving. Shortly after, she also started to have diarrhea and she thinks she had more than 5 episodes. She states that at home she had multiple syncopal episodes and for that reason, EMS was called. In the emergency room, the patient got up to use the commode and her heart rate went up into the 170s. Before receiving a Cardizem bolus, the patient's rhythm broke. Her EKG was reviewed and she seems to have multifocal atrial tachycardia with P waves with different shapes, but the heart rate on the EKG was only 97. The patient's laboratory tests were reviewed and she is hyponatremic, but her potassium is normal. We will check a magnesium level. IMPRESSION AND PLAN: The impression is that her symptoms are secondary to dehydration associated with her nausea, vomiting, and diarrhea. She probably has viral gastroenteritis and she will receive supportive care. She will receive IV hydration. We will add a magnesium level and replete as needed. We will monitor her electrolytes. She will be on seizure precautions. For her supraventricular tachycardia, the plan at this time is for rate control. The ED provider thought the patient was in atrial fibrillation, but I have no proof of it. Her EKG did not support atrial fibrillation and all the tracings I saw on telemetry could suggest multifocal atrial tachycardia, but not atrial fibrillation, so we will continue to monitor her. I believe her supraventricular tachycardia is based on her dehydration. She will have an echocardiogram in the morning. At this point, she is in sinus rhythm with a heart rate of 92 beats per minute, so no further negative chronotropic agents are indicated at this point. DOC Davis MD [id number]/CPS #: [id number]/CPS #: [id number] [facility]
--- NOTE | 2019-02-15 20:11 | HP ---
CC: Dr. Su HISTORY AND PHYSICAL: ADDENDUM: PRIMARY CARE PROVIDER: Dr. Su. HISTORY OF PRESENT ILLNESS: The case was reviewed and discussed with REGGIE Hall, and the patient was also evaluated at bedside. Mrs. Mack is a 73-year-old lady with a past medical history of lung cancer, depression, prior seizures in the setting of diarrhea, dehydration, and electrolyte imbalances who presents to the emergency room with complaints of nausea, vomiting, and diarrhea. She recently returned from a trip to [place] and her developed the same symptoms over the weekend and she developed the symptoms overnight. She states that yesterday, during the day, she was feeling well, went to bed at 8 p.m., and woke up around 10 p.m. with nausea and vomiting. She thinks she had more than 10 episodes of vomiting and towards the end, it was just dry heaving. Shortly after, she also started to have diarrhea and she thinks she had more than 5 episodes. She states that at home she had multiple syncopal episodes and for that reason, EMS was called. In the emergency room, the patient got up to use the commode and her heart rate went up into the 170s. Before receiving a Cardizem bolus, the patient's rhythm broke. Her EKG was reviewed and she seems to have multifocal atrial tachycardia with P waves with different shapes, but the heart rate on the EKG was only 97. The patient's laboratory tests were reviewed and she is hyponatremic, but her potassium is normal. We will check a magnesium level. IMPRESSION AND PLAN: The impression is that her symptoms are secondary to dehydration associated with her nausea, vomiting, and diarrhea. She probably has viral gastroenteritis and she will receive supportive care. She will receive IV hydration. We will add a magnesium level and replete as needed. We will monitor her electrolytes. She will be on seizure precautions. For her supraventricular tachycardia, the plan at this time is for rate control. The ED provider thought the patient was in atrial fibrillation, but I have no proof of it. Her EKG did not support atrial fibrillation and all the tracings I saw on telemetry could suggest multifocal atrial tachycardia, but not atrial fibrillation, so we will continue to monitor her. I believe her supraventricular tachycardia is based on her dehydration. She will have an echocardiogram in the morning. At this point, she is in sinus rhythm with a heart rate of 92 beats per minute, so no further negative chronotropic agents are indicated at this point. [id number]/[facility] #: [id number] [facility]ITALPraveena
[2019-02-16] MEDS: Albuterol HFA INHALER* 8 gm MDI INH PRN ×3 (05:42→20:14)
[2019-02-16] MEDS: NS 0.9% 1000 ML** 1,000 ML IV SCH ×3 (05:44→22:58)
[2019-02-16 06:10] LABS: ABS Basophils 0 10^3/ul (0-0.2); ABS Eosinophils 0.1 10^3/ul (0-0.6); ABS Lymphocytes 0.9 10^3/ul (1.0-4.8); ABS Monocytes 0.6 10^3/ul (0-0.8); ABS Neutrophils 3.4 10^3/ul (1.5-7.7); ABS Nucleated RBC 0 10^3/ul; Eosinophil % 1.8 %; Hematocrit 38 % (33-41); Hemoglobin 13.1 g/dL (12.0-16.0); Lymphocyte % 18.2 %; Mean Corpuscular HGB Conc 34 g/dL (31-36); Mean Corpuscular Hemoglobin 31 pg (27-31); Mean Corpuscular Volume 89 fL (80-97); Mean Platelet Volume 7.6 fL (7.4-10.4); Nucleated Red Blood Cells % 0; Platelet Count 293 10^3/uL (150-450); Red Blood Count 4.28 10^6 /uL (3.70-4.87); Red Cell Distribution Width 13 % (10.5-15)
[2019-02-16 06:27] LABS: BUN/Creatinine Ratio 16.4 (8-20); EGFR African American 131.8 (>60); Magnesium 2.3 mg/dL (1.9-2.7); Potassium 3.7 mmol/L (3.5-5.0)
[2019-02-16] MEDS: Ondansetron INJ* 2 MG/ML VIAL IV PRN ×2 (08:50→17:54)
[2019-02-16] MEDS: Aspirin EC TAB* 81 MG TAB.EC PO SCH (08:51)
[2019-02-16] MEDS: Pantoprazole TAB * 40 MG TAB PO SCH (08:52)
[2019-02-16] MEDS: Multivitamins/Minerals TAB PO SCH ×3 (08:52→11:06)
[2019-02-16] MEDS: Magnesium Oxide TAB* 400 MG PO SCH (09:48)
[2019-02-16] MEDS ORDERED: CMCS: Omeprazole CAP (NF) 20 MG CAP.DR PO SCH (14:01)
[2019-02-16] MEDS ORDERED: Calcium Carbonate CHEW TAB* 500 MG (TUMS) PO PRN (14:02)
[2019-02-16] MEDS ORDERED: Calcium Carbonate CHEW TAB* 500 MG (TUMS) ONE (14:23)
--- NOTE | 2019-02-16 16:47 | PN ---
Subjective Date of Service: 02/16/19 Interval History: Patient seen she feels still nauseated. She could not tolerate full liquid diet. Increase indigestion and still having increase diarrhea. No fever. Past Medical History: Unchanged from Admission Objective Active Medications: Albuterol (Ventolin Hfa Inhaler*) 2 puff INH Q4HR PRN PRN Reason: SHORTNESS OF BREATH Last Admin: 02/16/19 13:15 Dose: 2 puff Albuterol/Ipratropium (Duoneb (Albuterol 2.5 Mg/Ipratropium 0.5 Mg)) 1 neb INH Q4H PRN PRN Reason: SOB/WHEEZING Aspirin (Aspirin Ec Tab*) 81 mg PO DAILY [facility] Last Admin: 02/16/19 08:51 Dose: Not Given Calcium Carbonate (Tums*) 500 mg PO Q4H PRN PRN Reason: INDIGESTION Last Admin: 02/16/19 14:35 Dose: 500 mg Enoxaparin Sodium (Lovenox(*)) 40 mg SUBCUT Q24H [facility] Last Admin: 02/15/19 17:33 Dose: Not Given Sodium Chloride (Ns 0.9% 1000 Ml) 1,000 mls @ 125 mls/hr IV PER RATE [facility] Last Admin: 02/16/19 14:39 Dose: 125 mls/hr Magnesium Oxide (Magox 400 Tab*) 200 mg PO DAILY [facility] Last Admin: 02/16/19 09:48 Dose: 200 mg Multivitamins/Minerals (Theragran/Minerals Tab*) 1 tab PO DAILY [facility] Last Admin: 02/16/19 11:06 Dose: Not Given Nicotine (Nicotine Inhaler*) 10 mg INH Q2H PRN PRN Reason: CRAVINGS Omeprazole (Prilosec Cap* (Nf)) 20 mg PO BID [facility] Last Admin: 02/16/19 14:35 Dose: 20 mg Ondansetron HCl (Zofran Inj*) 4 mg IV Q6H PRN PRN Reason: NAUSEA Last Admin: 02/16/19 08:50 Dose: 4 mg Vital Signs - 8 hr 02/16/19 02/16/19 11:12 13:16 Temperature 98.3 F Pulse Rate 72 94 Respiratory 21 18 Rate Blood Pressure 126/63 (mmHg) O2 Sat by Pulse 96 98 Oximetry Oxygen Devices in Use Now: None Appearance: Awake, alert. no acute distress Eyes: No Scleral Icterus, - - EOMI Ears/Nose/Mouth/Throat: NL Teeth, Lips, Gums, Mucous Membranes Moist Neck: NL Appearance and Movements; NL JVP Respiratory: Symmetrical Chest Expansion and Respiratory Effort, Clear to Auscultation Cardiovascular: RRR Abdominal: NL Sounds; No Tenderness; No Distention Lymphatic: No Cervical Adenopathy Extremities: No Edema Skin: No Rash or Ulcers Neurological: Alert and Oriented x 3 Result Diagrams: 02/16/19 04:57 02/16/19 04:57 Microbiology and Other Data: Microbiology 02/15/19 13:51 Aerobic Blood Culture - Preliminary Blood Venous No Growth Day 1 02/15/19 13:51 Aerobic Blood Culture - Preliminary Blood Venous No Growth Day 1 Anaerobic Blood Culture - Preliminary No Growth Day 1 02/15/19 13:13 Urine Culture - Final Urine Assess/Plan/Problems-Billing Assessment: 73 y/o female admitted for diarrhea and dehydrations on IVF - Patient Problems (1) Gastroenteritis Current Visit: Yes Status: Acute Code(s): K52.9 - NONINFECTIVE GASTROENTERITIS AND COLITIS, UNSPECIFIED SNOMED Code(s): 44677849 Comment: - Unable to tolerate her full liquid this morning. will continue with IVF and Zofran - will place her on her home medicaitons of omeprazole as she states that pantoprazole does not work for her. the switch made - give her diarrhea and on PPI will check for stool culture and c-diff (2) Dehydration Current Visit: Yes Status: Acute Code(s): E86.0 - DEHYDRATION SNOMED Code( s): 08130305 Comment: - Continue with IVF (3) DVT prophylaxis Current Visit: Yes Status: Acute Code(s): WDD5962 - SNOMED Code(s): 574452047 Comment: - Lovenox 40 mg SQ daily
[2019-02-16] MEDS: Enoxaparin(*) 40 MG/0.4 ML SYR SUBCUT SCH (17:57)
--- NOTE | 2019-02-16 19:09 | ECHO ---
Patient: [facility] Rec#: [id number] : 1945 Date: 02/16/2019 Age: 73y Height: 157 cm / 61.8 in Weight: 54 kg / 119.0 lbs Sex: F BSA: 1.53 Room#: 439 Admit Date#: 02/15/2019 Type: Inpatient Referring: DELVIS Reading: Briana Tamayo MD Car Packer: Amy Muller RDCS CC: Andrea Su MD Transthoracic Echocardiogram Indication: Syncope BP: 103/61 HR: 78 Rhythm: NSR with PVCs Findings History: COPD, a-fib, hiatal hernia, former smoker. Imaging and measurements are limited by cardiac situs s/p right lower lobectomy. Technical Comments: The study quality is poor. The study is technically limited due to poor acoustic windows. Completed at 1240. Left Ventricle: The left ventricular chamber size is normal. There is no left ventricular hypertrophy. Global left ventricular wall motion and contractility are within normal limits. Left ventricular systolic function is at the lower limits of normal. The estimated ejection fraction is 50-55%. Abnormal left ventricular diastolic function is observed. There is an E to A reversal in the mitral valve flow pattern suggestive of diastolic dysfunction. Left Atrium: The left atrial chamber size is normal. Right Ventricle: The right ventricular cavity size is normal. The right ventricular global systolic function is normal. Right Atrium: The right atrium is not well visualized. Aortic Valve: The aortic valve is trileaflet. The aortic valve leaflets are mildly thickened. There is evidence of aortic sclerosis without stenosis. There is a trace of aortic regurgitation. There is no evidence of aortic stenosis. Mitral Valve: The mitral valve leaflets are mildly thickened. There is a trace of mitral regurgitation. There is no evidence of mitral stenosis. Tricuspid Valve: The tricuspid valve leaflets are normal. There is mild tricuspid regurgitation. The right ventricular systolic pressure is estimated at 30 mmHg. No pulmonary hypertension is noted. There is no tricuspid stenosis. Pulmonic Valve: The pulmonic valve appears normal. There is a trace pulmonic regurgitation. There is no pulmonic stenosis. Pericardium: There is no significant pericardial effusion. Aorta: The ascending aorta is not well visualized. The aortic arch is not well visualized. The aortic root is normal in size. Pulmonary Artery: The main pulmonary artery is not well visualized. Venous: The inferior vena cava appears normal in size. There is a greater than 50% respiratory change in the inferior vena cava dimension. Conclusions The study is technically limited due to poor acoustic windows. The left ventricular chamber size is normal. Global left ventricular wall motion and contractility are within normal limits. The estimated ejection fraction is 50-55%. There is an E to A reversal in the mitral valve flow pattern suggestive of diastolic dysfunction. The right ventricular global systolic function is normal. There is a trace of aortic regurgitation. There is a trace of mitral regurgitation. There is mild tricuspid regurgitation. The right ventricular systolic pressure is estimated at 30 mmHg. No prior echo to compare. Measurements Name Value Normal Range RVIDd (AP) 2D 3.4 cm (0.9 - 2.6) RVDdMajor (2D) 3.4 cm (2.2 - 4.4) IVSd (2D) 0.8 cm (0.6 - 1) LVPWd (2D) 0.7 cm (0.6 - 1) LVIDd (2D) 3.9 cm (3.6 - 5.4) LVIDs (2D) 3 cm - LV FS (2D) 21 % (25 - 45) Aortic Annulus 2.2 cm (1.4 - 2.6) Ao root diameter (2D) 2.9 cm (2.1 - 3.5) LA dimension (AP) 2D 3.2 cm (2.3 - 3.8) LAd ISD 4CH 4.4 cm (2.9 - 5.3) LA ISD 4CH W 3.8 cm (2.5 - 4.5) Name Value Normal Range MV E-wave Vmax 0.7 m/sec - MV deceleration time 236 msec - MV A-wave Vmax 1 m/sec - MV E:A ratio 0.7 ratio - LV septal e' Vmax 0.06 m/sec - LV lateral e' Vmax 0.05 m/sec - LV E:e' septal ratio 11.7 ratio - LV E:e' lateral ratio 14 ratio - Name Value Normal Range AV Vmax 1.7 m/sec - AV VTI 28 cm - AV peak gradient 11 mmHg - AV mean gradient 5 mmHg - LVOT Vmax 0.9 m/sec - LVOT VTI 17 cm - LVOT peak gradient 3 mmHg - LVOT mean gradient 2 mmHg - Name Value Normal Range TR Vmax 2.6 m/sec - TR peak gradient 27 mmHg - RAP 3 mmHg - RVSP 30 mmHg - IVC diameter 1.5 cm - Name Value Normal Range PV Vmax 1.1 m/sec - PV peak gradient 4 mmHg -
[2019-02-16] MEDS ORDERED: OMEPRAZOLE 20 MG PO SCH (21:00)
[2019-02-16] MEDS ORDERED: Melatonin 3 MG TAB PO PRN (22:15)
[2019-02-17] MEDS: Albuterol HFA INHALER* 8 gm MDI INH PRN ×2 (01:47→11:07)
[2019-02-17] MEDS ORDERED: CMCS: Omeprazole CAP (NF) 20 MG CAP.DR PO SCH (06:00)
[2019-02-17 06:53] LABS: ABS Basophils 0.1 10^3/ul (0-0.2); ABS Eosinophils 0.4 10^3/ul (0-0.6); ABS Monocytes 0.8 10^3/ul (0-0.8); ABS Neutrophils 4.7 10^3/ul (1.5-7.7); ABS Nucleated RBC 0 10^3/ul; Eosinophil % 5.5 %; Hematocrit 38 % (33-41); Hemoglobin 12.9 g/dL (12.0-16.0); Lymphocyte % 14.7 %; Mean Corpuscular HGB Conc 34 g/dL (31-36); Mean Corpuscular Hemoglobin 31 pg (27-31); Mean Corpuscular Volume 90 fL (80-97); Nucleated Red Blood Cells % 0; Platelet Count 281 10^3/uL (150-450); Red Blood Count 4.19 10^6 /uL (3.70-4.87); Red Cell Distribution Width 13 % (10.5-15)
[2019-02-17 07:09] LABS: BUN/Creatinine Ratio 7.5 (8-20); Calcium 8.3 mg/dL (8.6-10.3); EGFR African American 137.6 (>60); EGFR Non-African American 113.7 (>60); Magnesium 1.6 mg/dL (1.9-2.7); Potassium 3.6 mmol/L (3.5-5.0)
[2019-02-17] MEDS: NS 0.9% 1000 ML** 1,000 ML IV SCH (07:09)
[2019-02-17] MEDS ORDERED: Magnesium Sulfate 2 GM IV* 2 GM/50 ML BAG IVPB ONE (08:53)
[2019-02-17] MEDS ORDERED: Potassium Chlor TAB* 20 MEQ TAB.ER PO ONE (08:54)
[2019-02-17] MEDS: Multivitamins/Minerals TAB PO SCH (10:19)
[2019-02-17] MEDS: Magnesium Oxide TAB* 400 MG PO SCH (10:19)
[2019-02-17] MEDS: Aspirin EC TAB* 81 MG TAB.EC PO SCH (10:19)
[2019-02-17] MEDS: Potassium & Sodium Phos 250MG* = 1 PACKET PO SCH ×2 (10:21→12:57)
[2019-02-17 14:15] VITALS: BP 130/68
[2019-02-17] MEDS: Ondansetron INJ* 2 MG/ML VIAL IV PRN (14:38)
[2019-02-17] MEDS: Enoxaparin(*) 40 MG/0.4 ML SYR SUBCUT SCH (15:06)
--- NOTE | 2019-02-17 23:19 | DS ---
CC: Cassidy Ayala * DISCHARGE SUMMARY: DATE OF ADMISSION: 02/15/19 DATE OF DISCHARGE: 02/17/19 FINAL DISCHARGE DIAGNOSES: 1. Gastroenteritis secondary to probably viral. 2. Orthostatic hypotension with reflux tachycardia in the emergency room with pulse recorded as high as 180/170 and within 10 minutes came down to 103, makes me wonder if there was a mini artifact in the reading. 3. Hypotension, blood pressure is down to 82/66 from 114/73. 4. Chronic obstructive pulmonary disease. 5. Gastroesophageal reflux disease. 6. Hypomagnesemia with a magnesium 1.4. 7. Hypophosphatemia with a phosphorus 2.0. HOSPITAL COURSE: Patient presented to the hospital on 02/15/19 for nausea, vomiting, diarrhea, palpitations, and loss of consciousness that occurred about 4 times prior to arrival. She has known history of seizures subjectively related to dehydration, electrolyte abnormality. Given her tachycardia in the emergency room on presentation; it was documented as high as 180 and within a few minutes was down to 100 as well with the syncopal episode and hypotension, she was admitted for profound dehydration, hypotension, and hyomagnesemia secondary to gastroenteritis. Finally, she was brought into the ER by family for further evaluation. It was reported that the patient had 4 episodes of syncope with loss of consciousness and lightheadedness. Therefore, she was admitted. She was placed on the monitor. She has been in sinus rhythm throughout the hospital stay. No evidence of arrhythmia, 1 burst of SVT which was related to magnesium of 1.4, which was corrected. Blood pressure resolved, stabilized, and she was monitored and observed for the next 48 hours with IV fluids and electrolyte replacement. Patient's diet was advanced to full liquid on day #1, which she tolerated well and advanced further to solid, bland diet. She tolerated her lunch tray well. She was reassessed 3 to 4 hours later. She feels better. No nausea or vomiting. She ambulated independently and hence, the patient deemed medically stable for discharge as the recommendation below. PHYSICAL EXAMINATION: Vital Signs: Temperature 98.4, pulse 83, respiratory rate 18, satting 98%, blood pressure 130/68. General: She is awake, alert, oriented, follows simple commands, in no acute distress. Head and Neck: Normocephalic, atraumatic. Supple. Lungs: Clear to auscultation. Abdomen: Positive bowel sounds. Soft, nontender, nondistended. GRADES 9 12 TUTOR: No motor or focal sensory deficit. DIAGNOSTIC STUDIES/LAB DATA: She had the following done: CBC: White count was 12,000 on admission, is down to 7 today prior to discharge. Her chemistry was significant for hyponatremia, sodium 126; it is up to 136 today, potassium was borderline at 3.5; remains 3.6, chloride was down to 95; up to 105, BUN was as high as 14; down to 4, creatinine was 0.6; down to 0.5, her lactic acid was normal at 0.9 and 0.7, magnesium was 1.4; went up to 2.3 and now 1.6; was supplemented and will be sent with prescription for magnesium, phosphorus 2.0; supplemented. Urine was negative for wbc, nitrites, trace leuk esterase. Serology was negative for influenza A and B. Stool study was negative for C. diff and final stool cultures remain pending, however, but her fecal leukocyte was negative. EKG shows sinus rhythm, rate 97, with R-wave progression, normal interval. No ST-T wave changes. There is P pulmonale for possible pulmonary hypertension. Chest x-ray on admission, 02/15/19, shows postsurgical change, no evidence of acute finding. Transthoracic was done secondary to her tachyarrhythmia and the subjective history of syncope, shows normal ejection fraction of 55% to 50%, no valvular disease. DISCHARGE MEDICATIONS: She was told to resume her home medications. 1. Albuterol inhaler every 4 hours. 2. Aspirin 81 mg daily. 3. B12. 4. Zyrtec 10 daily. 5. Fluticasone nasal spray. 6. Advair 1 puff twice a day. 7. Prevacid 30 mg b.i.d. 8. Multivitamin daily. 9. Nicotine inhaler. 10. Melatonin 3 mg at bedtime. 11. Magnesium. She was told to take 400 mg p.o. twice a day. DISCHARGE RECOMMENDATIONS: Adhere to low-fat, low-residue diet. ACTIVITY: As tolerated. DISPOSITION: Home in stable condition. DISCHARGE INSTRUCTIONS: Follow up with primary care in 1 week, maintain good hydration, and if she has recurrent symptoms, she was instructed to seek immediate medical attention. [id number]/[facility] #: [id number] [facility]INICPraveena
--- NOTE | 2019-02-27 18:52 | CONSULT ---
Subjective Date of Service: 02/27/19 Interval History: Consult date 02/27/2019 at [facility] [place] ER requested by Dr. Lazo PRIMARY CARE PROVIDER: Dr. Su at [place] CHIEF COMPLAINT: Palpitations, lightheadedness HISTORY OF PRESENT ILLNESS: Jaqueline Mack is a 73-year-old woman who has been experiencing palpitations and lightheadedness intermittently all winter since being in [place]. A prior note states this has been happening for years. She was initially placed on BP medications then stopped these. She was admitted earlier this month with a GI illness, dehydration and syncope multiple times while trying to stand up. She was noted to have SVT earlier during course resolved with electrolyte abnormalities. She was admitted today again with intermittent palpitations and lightheadedness when trying to stand up. Before arrhythmia she has no change in baseline dyspnea on exertion, chest pain, presyncope or syncope. She was found in an intermittent 1:1 and 2:1 atrial tachycardia at rest. She was symptomatic with 1:1 arrhythmia. With 2:1 at rest she was asymptomatic. After receiving IV and then oral metoprolol toprol 25 mg po daily, she remain with either NSR or 2:1 atrial tachycardia. We ambulated her in the hallway. She felt fatigued by the end of one hallway without syncope or presyncope or CP. She felt no difference between when she was in sinus rhythm or 2:1 atrial tachycardia with exertion or at rest in bed on monitor. She does not drive. Her daughter is with her who drives. She needs to go home to take care of her . Her also take metoprolol. She received an additional 25 mg of toprol while I was in the room with her. PAST MEDICAL HISTORY: 1. COPD. 2. GERD. 3. Hiatal hernia. 4. Spinal arthritis. 5. History of lung cancer, treatment involved lobectomy and chemo. 6. History of seizures while hospitalized and acutely ill with dehydration and electrolyte abnormalities years ago PAST SURGICAL HISTORY: Right lung lobectomy in 1990, left hand, tubal ligation , cholecystectomy. DRUG ALLERGIES: BACTRIM, rash; PRAETORIAN GLOVES, itching. FAMILY HISTORY: Positive for hypertension, heart disease, CVA, diabetes mellitus. Negative for cancer. SOCIAL HISTORY: The patient is a former smoker. She used to smoke approximately half a pack per day for 25 years intermittently. Now she uses nicotine inhalers. She denies use of alcohol. She denies use of illicit drugs. She lives at home with her and grandson. She is retired. In the event that she is unable to make her own medical decisions, she has appointed her daughter, Zoraida Warner, phone number [phone], to be her surrogate decision maker. Medications Home Medications: Cetirizine* [ZyrTEC 10 MG TAB*] 10 mg PO DAILY 04/13/15 [History Confirmed 02/27] Fluticasone NASAL SPRAY 50MCG* [Flonase NASAL SPRAY 50MCG*] 2 spray BOTH NARES DAILY 08/17/18 [History Confirmed 02/27/19] Albuterol Sulfate 3 ml INH QID 02/15/19 [History Confirmed 02/27/19] Albuterol inh POWDER (NF) [Proair Respiclick] 2 puff INH Q4HR PRN 02/15/19 [ History Confirmed 02/27/19] Albuterol/Ipratropium RESP(NF) [Combivent Respimat (NF)] 1 aer INH QID 02/15/19 [History Confirmed 02/27/19] Aspirin EC TAB* [Ecotrin EC Low Dose 81 MG*] 81 mg PO DAILY 02/15/19 [History Confirmed 02/27/19] Fluticasone-Salmeterol 100-50* [Advair Diskus 100-50*] 1 puff INH BID 02/15/19 [ History Confirmed 02/27/19] Lansoprazole SOLUTAB* [Prevacid SOLUTAB*] 30 mg PO BID 02/15/19 [History Confirmed 02/27/19] Multivitamins/Minerals TAB* [Theragran/minerals TAB*] 1 tab PO DAILY 02/15/19 [ History Confirmed 02/27/19] Nicotine Inhaler* 10 mg INH Q2H PRN 02/15/19 [History Confirmed 02/27/19] Magnesium Oxide TAB* [MagOx 400 TAB*] 400 mg PO BID 30 Days #60 tab 02/17/19 [ Rx Confirmed 02/27/19] Melatonin 3 mg PO BEDTIME PRN tab 02/17/19 [Rx Confirmed 02/27/19] Review of Systems - Review of Systems Constitutional Symptoms: Positive: Fatigue Negative: Weight Gain, Weight Loss, Fever, Night Sweats Dermatology: Negative: Rash, Skin Lesions HEENT: Negative: Change in Hearing, Vertigo Eyes: Negative: Change in Vision, Double Vision Thyroid: Negative: Primary Hypothyroidism, Primary Hyperthyroidism, Weight Loss, Weight Gain Pulmonary: Positive: COPD Negative: Cough, Sputum, Hemoptysis Cardiology: Positive: Palpitations Negative: Chest Pain, Swelling of Ankles, Peripheral Vascular Dis, Edema, Claudication, Paroxysmal Nocturnal Dyspnea, Orthopnea Gastroenterology: Negative: Abdominal Pain, Nausea, Vomiting, Anorexia, Blood in Stools, Haematemesis, Melena Genital - Urinary: Negative: Dysuria, Hematuria Musculoskeletal: Negative: Joint Pain, Joint Stiffness, Arthritis Endocrinology: Negative: Polydipsia, Polyuria Hematologic/Lymphatic: Positive: Use of Antiplatelet Drugs Negative: Use of Anticoagulant Neurology: Negative: Change in Speech, Change in Sphincter Function, Change in Walking Psychiatry: Negative: Unusual Anxiety, Suicidal Ideation Allergic/Immunologic: Negative: Hx HIV, Immunocompromise Review of Systems Statement: All other review of systems negative, unless stated above. Objective Vital Sign Oxygen Devices in Use Now: None Appearance: pleasant, nad Ears/Nose/Mouth/Throat: Clear Oropharnyx, Mucous Membranes Moist Neck: NL Appearance and Movements; NL JVP, Trachea Midline Respiratory: Symmetrical Chest Expansion and Respiratory Effort, Clear to Auscultation Cardiovascular: NL Sounds; No Murmurs; No JVD, RRR, No Edema Abdominal: NL Sounds; No Tenderness; No Distention Extremities: No Edema Skin: No Rash or Ulcers Neurological: Alert and Oriented x 3 Laboratory Results: labs this admission: na 126, k 4.2, mg 1.9 ctni 0.01 tsh 1.72 Diagnostic Imaging: echo 02/16/2019 Conclusions The study is technically limited due to poor acoustic windows. The left ventricular chamber size is normal. Global left ventricular wall motion and contractility are within normal limits. The estimated ejection fraction is 50-55%. The right ventricular global systolic function is normal. There is a trace of aortic regurgitation. There is a trace of mitral regurgitation. There is mild tricuspid regurgitation. The right ventricular systolic pressure is estimated at 30 mmHg. CXR Exam Date: 02/27/19 1607 IMPRESSION: POSTOPERATIVE CHANGES WITH RIGHT LOWER LOBECTOMY. NO SIGNIFICANT CHANGE IS NOTED SINCE FEBRUARY 15, 2019. EKG Data: ekg's from today and rhythm strip NSR, AGUSTÍN Atrial tachycardia, 2:1 rate 94 bpm, no ischemic ekg changes Rhythm strip prior to rate control: periods of 1:1 atrial tachycardia up to 180 bpm Assessment/Plan 1. Symptomatic atrial tachycardia in setting of
== END 2019-02-17 15:55 | disposition home or self-care (01) | DRG 392 ==
LOC: ED 11:59 → MEDTELE 14:44 → OBSVTOIN 02-16 15:47
PROVIDERS: ADMIT Internal Medicine; ATTEND Internal Medicine
DX: A08.4 Viral intestinal infection, unspecified (principal); I47.1 Supraventricular tachycardia; E86.0 Dehydration; E83.42 Hypomagnesemia; E83.39 Other disorders of phosphorus metabolism; I95.1 Orthostatic hypotension; H26.9 Unspecified cataract; K44.9 Diaphragmatic hernia without obstruction or gangrene; I49.1 Atrial premature depolarization; K21.9 Gastro-esophageal reflux disease without esophagitis; M46.90 Unspecified inflammatory spondylopathy, site unspecified; J44.9 Chronic obstructive pulmonary disease, unspecified; Z88.2 Allergy status to sulfonamides; Z88.8 Allergy status to other drugs, medicaments and biological substances; Z82.49 Family history of ischemic heart disease and other diseases of the circulatory system; Z87.891 Personal history of nicotine dependence; Z98.51 Tubal ligation status; Z97.4 Presence of external hearing-aid; Z90.2 Acquired absence of lung [part of]; Z79.82 Long term (current) use of aspirin; Z88.1 Allergy status to other antibiotic agents; Z91.048 Other nonmedicinal substance allergy status; Z83.3 Family history of diabetes mellitus; Z82.3 Family history of stroke
CPT/HCPCS: 36415; 71045; 80048; 80053; 81003; 81015; 83605; 83630; 83735; 84100; 84484; 85025; 85610; 85730; 86140; 87040; 87045; 87046; 87086; 87493; 87899; 93005; 93306; 94640; 99285; A9270-GY; J1650; J2405; J3475

== ENCOUNTER 2019-02-27 14:04 | Emergency (ER) | payer MEDICARE, BC ==
--- NOTE | 2019-02-27 16:07 | ED ---
Palpitations / Dysrhythmia - HPI Summary HPI Summary: This patient is a 73 year old F presenting to [facility] accompanied by her daughter with a chief complaint of intermittent heart palpitations since this morning. The patient describes her symptoms as pounding heart beats. The patient was seen at [facility] for the stomach flu and had very low potassium. The patient rates the pain 0/10 in severity. Symptoms aggravated by nothing. Symptoms alleviated by nothing. Patient reports she has been drinking water and Gatorade. - History of Current Complaint Chief Complaint: EDDysrhythmPalp Time Seen by Provider: 02/27/19 15:56 Hx Obtained From: Patient Onset/Duration: Sudden Onset, Lasting Hours, Still Present Timing: Intermittent Episodes Lasting: Severity Initially: Mild Severity Currently: Mild Character: Pounding Aggravating: Nothing Alleviating: Nothing - Allergy/Home Medications Allergies/Adverse Reactions: Allergies Allergy/AdvReac Type Severity Reaction Status Date / Time sulfamethoxazole Allergy Rash Verified 02/27/19 14:07 [From Bactrim] trimethoprim [From Bactrim] Allergy Rash Verified 02/27/19 14:07 varenicline [From Chantix] Allergy Rash Verified 02/27/19 14:07 POWDER IN ALL GLOVES Allergy Itching Uncoded 02/27/19 14:07 PMH/Surg Hx/FS Hx/Imm Hx Respiratory History: Reports: Hx Chronic Obstructive Pulmonary Disease (COPD) Denies: Hx Asthma GI History: Reports: Hx Gastroesophageal Reflux Disease - ON PRILOSEC FOR, Hx Hiatal Hernia Musculoskeletal History: Reports: Hx Arthritis - SPINE Sensory History: Reports: Hx Cataracts - BILATERAL, Hx Contacts or Glasses - GLASSES, Hx Hearing Aid - BILATERAL ONLY WEARS IN THE LEFT EAR Opthamlomology History: Reports: Hx Cataracts - BILATERAL, Hx Contacts or Glasses - GLASSES Neurological History: Reports: Hx Seizures - 3 SEIZURES- WHILE BEING SICK- 3 YEARS AGO - Surgical History Surgery Procedure, Year, and Place: 1990- RIGHT LOWER LOBECTOMY. GALLBLADDER AND GALLSTONES REMOVED- 1992-[facility]. 1970- TUBAL LIGATION. ENDOSCOPIES Hx Anesthesia Reactions: Yes - [facility]- HAD A HARD TIME WAKING UP-1992 Infectious Disease History: No Infectious Disease History: Denies: Traveled Outside the [place] in Last 30 Days - Family History Known Family History: Positive: Hypertension - Social History Alcohol Use: None Substance Use Type: Reports: None Smoking Status (MU): Former Smoker Type: Cigarettes Amount Used/How Often: 1/2 PPD X 25 YEARS ON AND OFF Have You Smoked in the Last Year: Yes Review of Systems Negative: Epistaxis Positive: Palpitations - pounding heart Negative: Cough Negative: Vomiting Negative: Rash All Other Systems Reviewed And Are Negative: Yes Physical Exam - Summary Physical Exam Summary: Appearance: The patient is well-nourished in no acute distress and in no acute pain. Skin: The skin is warm and dry and skin color reflects adequate perfusion. HEENT: The head is normocephalic and atraumatic. The pupils are equal and reactive. The conjunctivae are clear and without drainage. Nares are patent and without drainage. Mouth reveals moist mucous membranes and the throat is without erythema and exudate. The external ears are intact. The ear canals are patent and without drainage. The tympanic membranes are intact. Neck: The neck is supple with full range of motion and non-tender. There are no carotid bruits. There is no neck vein distension. Respiratory: Chest is non-tender. Lungs are clear to auscultation and breath sounds are symmetrical and equal. Cardiovascular: Heart is tachycardic and irregular rhythm. There is no murmur or rub auscultated. There is no peripheral edema and pulses are symmetrical and equal. Abdomen: The abdomen is soft and non-tender. There are normal bowel sounds heard in all four quadrants and there is no organomegaly palpated. Musculoskeletal: There is no back tenderness noted. Extremities are non-tender with full range of motion. There is good capillary refill. There is no peripheral edema or calf tenderness elicited. Neurological: Patient is alert and oriented to person, place and time. The patient has symmetrical motor strength in all four extremities. Cranial nerves are grossly intact. Deep tendon reflexes are symmetrical and equal in all four extremities. Psychiatric: The patient has an appropriate affect and does not exhibit any anxiety or depression. Triage Information Reviewed: Yes Vital Signs On Initial Exam: Initial Vitals Temp Pulse Resp BP Pulse Ox 100.3 F 96 14 143/86 96 02/27/19 14:07 02/27/19 14:07 02/27/19 14:07 02/27/19 14:07 02/27/19 14:07 Vital Signs Reviewed: Yes Diagnostics - Vital Signs Vital Signs Temp Pulse Resp BP Pulse Ox 02/27/19 14:07 100.3 F 96 14 143/86 96 - Laboratory Result Diagrams: 02/27/19 16:22 02/27/19 16:22 Lab Statement: Any lab studies that have been ordered have been reviewed, and results considered in the medical decision making process. - Radiology CXR Radiology Interpretation Completed By: Radiologist Summary of Radiographic Findings: IMPRESSION: POSTOPERATIVE CHANGES WITH RIGHT LOWER LOBECTOMY. NO SIGNIFICANT CHANGE IS. NOTED SINCE FEBRUARY 15, 2019. Dr. Lazo has reviewed this report. - EKG 14:13 Cardiac Rate: NL - at 94 bpm EKG Rhythm: Sinus Rhythm Summary of EKG Findings: sinus rhythm at 94 bpm 17:21 Cardiac Rate: NL - at 64 bpm EKG Rhythm: Sinus Rhythm Summary of EKG Findings: sinus rhythm at 64 bpm 17:14 Cardiac Rate: NL - at 94 bpm Summary of EKG Findings: atrial rhythm at 94 bpm 17:19 Cardiac Rate: NL - at 92 bpm Summary of EKG Findings: atrial rhythm at 92 bpm Course/Dx - Course Course Of Treatment: Ms. Mack presented complaining of symptomatic palpitations. I placed her on a monitor and she was in what looked like a sinus tachycardia. Every once in a while it would break into a normal sinus rhythm. He would start right back up again and I was able to break it occasionally with Valsalva and carotid massage. She was given Lopressor 5 mg IV and this slowed her down. At times she was in the sinus rhythm in the 70s but at other times she was in an atrial rhythm that was faster in the 90-100 range. I wasn't sure what the etiology of this was and her potassium and magnesium were within normal limits. I spoke with Dr. Camacho who reviewed the EKGs and came to the department to evaluate her. He recommended metoprolol XL for her and felt that she was stable for discharge. She had not had a rapid episode after the original IV metoprolol. - Diagnoses Provider Diagnoses: Atrial tachycardia - Physician Notifications Discussed Care Of Patient With: Papo Thomas Time Discussed With Above Provider: 17:40 Instructed by Provider To: Other - At 17:[address] discussed E[address] results [address] Dr[address] Thomas, assembler musical equipment, who agreed to consult with another assembler musical equipment on the results. At 18:[address] Thomas and he noted 2:1 atrial tachycardia on the patient's EKG. Discharge - Sign-Out/Discharge Documenting (check all that apply): Patient Departure - discharge home Patient Received Moderate/Deep Sedation with Procedure: No - Discharge Plan Condition: Stable Disposition: HOME Prescriptions: Metoprolol Succinate XL TAB* [Toprol XL TAB*] 50 mg PO DAILY #30 tab.xl Patient Education Materials: Atrial Tachycardia (ED) Referrals: Andrea Su MD [Primary Care Provider] - Papo Thomas DO [Medical Doctor] - 2 Days Additional Instructions: Follow up with Dr. Thomas, assembler musical equipment in 2-3 days. Return to the emergency with any new or worsening symptoms. - Billing Disposition and Condition Condition: STABLE Disposition: Home - Attestation Statements Document Initiated by Epifanio: Yes Documenting Scribe: Bushra Hackett Provider For Whom Epifanio is Documenting (Include Credential): Bc Lazo MD Scribe Attestation: Bushra Jarrell scribed for Bc Lazo MD on 02/27/19 at 1841. Scribe Documentation Reviewed: Yes Provider Attestation: The documentation as recorded by the scribeBushra accurately reflects the service I personally performed and the decisions made by Bc mejia MD Status of Scribe Document: Viewed
[2019-02-27 16:30] LABS: ABS Basophils 0 10^3/ul (0-0.2); ABS Eosinophils 0.2 10^3/ul (0-0.6); ABS Lymphocytes 2.5 10^3/ul (1.0-4.8); ABS Monocytes 0.9 10^3/ul (0-0.8); ABS Neutrophils 6.1 10^3/ul (1.5-7.7); ABS Nucleated RBC 0 10^3/ul; Eosinophil % 1.7 %; Hematocrit 40 % (33-41); Hemoglobin 13.8 g/dL (12.0-16.0); Lymphocyte % 25.5 %; Mean Corpuscular HGB Conc 34 g/dL (31-36); Mean Corpuscular Hemoglobin 31 pg (27-31); Mean Corpuscular Volume 89 fL (80-97); Mean Platelet Volume 6.6 fL (7.4-10.4); Nucleated Red Blood Cells % 0; Platelet Count 536 10^3/uL (150-450); Red Blood Count 4.53 10^6 /uL (3.70-4.87); Red Cell Distribution Width 13 % (10.5-15); White Blood Count 9.7 10^3/uL (3.5-10.8)
[2019-02-27 16:37] LABS: INR 0.97 (0.77-1.02)
[2019-02-27 16:47] LABS: Albumin 3.8 g/dL (3.2-5.2); BUN/Creatinine Ratio 14.7 (8-20); Calcium 9.4 mg/dL (8.6-10.3); EGFR African American 103.2 (>60); EGFR Non-African American 85.3 (>60); Globulin 2.6 g/dL (2-4); Magnesium 1.9 mg/dL (1.9-2.7); Potassium 4.2 mmol/L (3.5-5.0); Total Protein 6.4 g/dL (6.4-8.9)
[2019-02-27 16:48] LABS: Albumin/Globulin Ratio 1.5 (1-3); Total Bilirubin 0.5 mg/dL (0.2-1.0)
[2019-02-27 16:49] LABS: Troponin I 0.01 ng/mL (<0.04)
[2019-02-27] MEDS ORDERED: Diltiazem IV* 5 MG/ML 5 ML VIAL (for loading dose/IV Push) (25 MG) IV SLOW PU ONE (17:00)
[2019-02-27] MEDS ORDERED: Metoprolol Tartrate IV* 1 MG/ML 5 ML VIAL ONE (17:03)
[2019-02-27] MEDS ORDERED: Metoprolol Tartrate IV* 1 MG/ML 5 ML VIAL IV ONE (17:06)
[2019-02-27] MEDS ORDERED: NS 0.9% 1000 ML** 1,000 ML IV.FLUID IV ONE (17:06)
[2019-02-27 17:45] LABS: TSH (Thyroid Stimulating Horm) 1.73 mcIU/mL (0.34-5.60)
[2019-02-27] MEDS ORDERED: Metoprolol Succinate XL TAB* 25 MG PO ONE ×2 (17:45→18:23)
[2019-02-27] MEDS ORDERED: Metoprolol Tartrate TAB* 25 MG ONE (18:23)
[2019-02-27 18:53] VITALS: BP 100/71
--- NOTE | 2019-02-27 19:11 | CONSULT ---
Subjective Date of Service: 02/27/19 Interval History: Consult date 02/27/2019 at [facility] [place] ER requested by Dr. Lazo PRIMARY CARE PROVIDER: Dr. Su at [place] CHIEF COMPLAINT: Palpitations, lightheadedness HISTORY OF PRESENT ILLNESS: Jaqueline Mack is a 73-year-old woman who has been experiencing palpitations and lightheadedness intermittently all winter since being in [place]. A prior note states this has been happening for years. She was initially placed on BP medications then stopped these. She was admitted earlier this month with a GI illness, dehydration and syncope multiple times while trying to stand up. She was noted to have SVT earlier during course resolved with electrolyte abnormalities. She was admitted today again with intermittent palpitations and lightheadedness when trying to stand up. Before arrhythmia she has no change in baseline dyspnea on exertion, chest pain, presyncope or syncope. She was found in an intermittent 1:1 and 2:1 atrial tachycardia at rest. She was symptomatic with 1:1 arrhythmia. With 2:1 at rest she was asymptomatic. After receiving IV and then oral metoprolol toprol 25 mg po daily, she remain with either NSR or 2:1 atrial tachycardia. We ambulated her in the hallway. She felt fatigued by the end of one hallway without syncope or presyncope or CP. She felt no difference between when she was in sinus rhythm or 2:1 atrial tachycardia with exertion or at rest in bed on monitor. She does not drive. Her daughter is with her who drives. She needs to go home to take care of her . Her also take metoprolol. She received an additional 25 mg of toprol while I was in the room with her. PAST MEDICAL HISTORY: 1. COPD. 2. GERD. 3. Hiatal hernia. 4. Spinal arthritis. 5. History of lung cancer, treatment involved lobectomy and chemo. 6. History of seizures while hospitalized and acutely ill with dehydration and electrolyte abnormalities years ago PAST SURGICAL HISTORY: Right lung lobectomy in 1990, left hand, tubal ligation , cholecystectomy. DRUG ALLERGIES: BACTRIM, rash; PRAETORIAN GLOVES, itching. FAMILY HISTORY: Positive for hypertension, heart disease, CVA, diabetes mellitus. Negative for cancer. SOCIAL HISTORY: The patient is a former smoker. She used to smoke approximately half a pack per day for 25 years intermittently. Now she uses nicotine inhalers. She denies use of alcohol. She denies use of illicit drugs. She lives at home with her and grandson. She is retired. In the event that she is unable to make her own medical decisions, she has appointed her daughter, Zoraida Warner, phone number [phone], to be her surrogate decision maker. Review of Systems - Review of Systems Constitutional Symptoms: Positive: Fatigue Negative: Weight Gain, Weight Loss, Fever, Night Sweats Dermatology: Negative: Rash, Skin Lesions HEENT: Negative: Change in Hearing, Vertigo Eyes: Negative: Change in Vision, Double Vision Thyroid: Negative: Primary Hypothyroidism, Primary Hyperthyroidism, Weight Loss, Weight Gain Pulmonary: Positive: COPD Negative: Cough, Sputum, Hemoptysis Cardiology: Positive: Palpitations Negative: Chest Pain, Swelling of Ankles, Peripheral Vascular Dis, Edema, Claudication, Paroxysmal Nocturnal Dyspnea, Orthopnea Gastroenterology: Negative: Abdominal Pain, Nausea, Vomiting, Anorexia, Blood in Stools, Haematemesis, Melena Genital - Urinary: Negative: Dysuria, Hematuria Musculoskeletal: Negative: Joint Pain, Joint Stiffness, Arthritis Endocrinology: Negative: Polydipsia, Polyuria Hematologic/Lymphatic: Positive: Use of Antiplatelet Drugs Negative: Use of Anticoagulant Neurology: Negative: Change in Speech, Change in Sphincter Function, Change in Walking Psychiatry: Negative: Unusual Anxiety, Suicidal Ideation Allergic/Immunologic: Negative: Hx HIV, Immunocompromise Review of Systems Statement: All other review of systems negative, unless stated above. Medications Home Medications: Cetirizine* [ZyrTEC 10 MG TAB*] 10 mg PO DAILY 04/13/15 [History Confirmed 02/27] Fluticasone NASAL SPRAY 50MCG* [Flonase NASAL SPRAY 50MCG*] 2 spray BOTH NARES DAILY 08/17/18 [History Confirmed 02/27/19] Albuterol Sulfate 3 ml INH QID 02/15/19 [History Confirmed 02/27/19] Albuterol inh POWDER (NF) [Proair Respiclick] 2 puff INH Q4HR PRN 02/15/19 [ History Confirmed 02/27/19] Albuterol/Ipratropium RESP(NF) [Combivent Respimat (NF)] 1 aer INH QID 02/15/19 [History Confirmed 02/27/19] Aspirin EC TAB* [Ecotrin EC Low Dose 81 MG*] 81 mg PO DAILY 02/15/19 [History Confirmed 02/27/19] Fluticasone-Salmeterol 100-50* [Advair Diskus 100-50*] 1 puff INH BID 02/15/19 [ History Confirmed 02/27/19] Lansoprazole SOLUTAB* [Prevacid SOLUTAB*] 30 mg PO BID 02/15/19 [History Confirmed 02/27/19] Multivitamins/Minerals TAB* [Theragran/minerals TAB*] 1 tab PO DAILY 02/15/19 [ History Confirmed 02/27/19] Nicotine Inhaler* 10 mg INH Q2H PRN 02/15/19 [History Confirmed 02/27/19] Magnesium Oxide TAB* [MagOx 400 TAB*] 400 mg PO BID 30 Days #60 tab 02/17/19 [ Rx Confirmed 02/27/19] Melatonin 3 mg PO BEDTIME PRN tab 02/17/19 [Rx Confirmed 02/27/19] Metoprolol Succinate XL TAB* [Toprol XL TAB*] 50 mg PO DAILY #30 tab.xl [Rx] Review of Systems - Measurements Intake and Output: Intake and Output Last 24 Hours 02/25/19 02/26/19 02/27/19 02/28/19 06:59 06:59 06:59 06:59 Intake Total 1000 Balance 1000 Weight 111 lb Intake: IV Fluids 1000 - Review of Systems Review of Systems Statement: All other review of systems negative, unless stated above. Objective Vital Signs: Temp Pulse Resp BP Pulse Ox 98.6 F 80 17 100/71 96 02/27/19 18:53 02/27/19 18:53 02/27/19 18:53 02/27/19 18:53 02/27/19 18:53 Oxygen Devices in Use Now: None Appearance: nad, pleasant Ears/Nose/Mouth/Throat: Clear Oropharnyx, Mucous Membranes Moist Neck: NL Appearance and Movements; NL JVP, Trachea Midline Respiratory: Symmetrical Chest Expansion and Respiratory Effort, Clear to Auscultation Cardiovascular: RRR - when in sr, no murmur, No Edema Abdominal: NL Sounds; No Tenderness; No Distention Extremities: No Edema Skin: No Rash or Ulcers Neurological: Alert and Oriented x 3 Laboratory Results: 02/27/19 16:22 02/27/19 16:22 INR (Anticoag Therapy) 0.97 (0.77-1.02) 02/27/19 16:17 Total Bilirubin 0.50 mg/dL (0.2-1.0) 02/27/19 16:22 AST 16 U/L (13-39) 02/27/19 16:22 ALT 14 U/L (7-52) 02/27/19 16:22 Alkaline Phosphatase 92 U/L (34-104) 02/27/19 16:22 Total Protein 6.4 g/dL (6.4-8.9) 02/27/19 16:22 Albumin 3.8 g/dL (3.2-5.2) 02/27/19 16:22 Globulin 2.6 g/dL (2-4) 02/27/19 16:22 Albumin/Globulin Ratio 1.5 (1-3) 02/27/19 16:22 TSH 1.73 mcIU/mL (0.34-5.60) 02/27/19 16:22 02/27/19 16:22 Troponin I 0.01 Assessment/Plan labs this admission: na 126, k 4.2, mg 1.9 ctni 0.01 tsh 1.72 Diagnostic Imaging: echo 02/16/2019 Conclusions The study is technically limited due to poor acoustic windows. The left ventricular chamber size is normal. Global left ventricular wall motion and contractility are within normal limits. The estimated ejection fraction is 50-55%. The right ventricular global systolic function is normal. There is a trace of aortic regurgitation. There is a trace of mitral regurgitation. There is mild tricuspid regurgitation. The right ventricular systolic pressure is estimated at 30 mmHg. CXR Exam Date: 02/27/19 1607 IMPRESSION: POSTOPERATIVE CHANGES WITH RIGHT LOWER LOBECTOMY. NO SIGNIFICANT CHANGE IS NOTED SINCE FEBRUARY 15, 2019. EKG Data: ekg's from today and rhythm strip NSR, AGUSTÍN Atrial tachycardia, 2:1 rate 94 bpm, no ischemic ekg changes Rhythm strip prior to rate control: periods of 1:1 atrial tachycardia up to 180 bpm Assessment/Plan 1. Symptomatic rapid paroxysmal atrial tachycardia in setting of lung resection and COPD - Symptoms improved with rate control - Would start toprol 50 mg po daily to rate control paroxysmal episodes - Oral anticoagulation not indicated - Will arrange cardiology follow up. If patient is still significantly symptomatic will pursue rhythm control options Thank you for allowing me to participate in the cardiovascular care of this patient. Please do not hesitate to contact me with questions or concerns.
== END 2019-02-27 18:53 | disposition home or self-care (01) ==
LOC: ED 14:04
DX: I47.1 Supraventricular tachycardia (principal); R94.31 Abnormal electrocardiogram [ECG] [EKG]; J44.9 Chronic obstructive pulmonary disease, unspecified; K21.9 Gastro-esophageal reflux disease without esophagitis; K44.9 Diaphragmatic hernia without obstruction or gangrene; M46.90 Unspecified inflammatory spondylopathy, site unspecified; R56.9 Unspecified convulsions; Z88.2 Allergy status to sulfonamides; Z88.8 Allergy status to other drugs, medicaments and biological substances; Z88.3 Allergy status to other anti-infective agents; Z79.899 Other long term (current) drug therapy; Z87.891 Personal history of nicotine dependence; Z90.2 Acquired absence of lung [part of]
CPT/HCPCS: 36415; 71045; 80053; 83605; 83735; 84443; 84484; 85025; 85610; 93005; 96361; 96374; 96375; 99283; J3490

== ENCOUNTER 2019-07-21 17:12 | Emergency (ER) | payer MEDICARE, BC ==
--- OUTSIDE RECORDS SUMMARY | 2019-07-21 17:32 | XMS REPORT | Summary of Care ---
:1945 Author Organization [facility] [address] Address [address] [place] [address] Care Team Providers Name Role Phone Andrea Su MD Primary Care Provider Bernabe Higginbotham MD Unavailable Reason for Visit Reason Comments Check Up Patient states that her BP is dropping when she's sitting still. Encounter Details Date Type Department Care Team Description 07/21/2019 Office Visit [place] Rosa Jimenez, Essential hypertension (Primary Dx); Practice [facility] Atrial tachycardia (HCC); [address] [facility] Lipid screening; [place] [address] [place] [address] Malaise and fatigue [phone] Allergies No Known Allergiesdocumented as of this encounter (statuses as of 07/21/2019) Medications Medication Sig Dispensed Refills Start Date End Date Status Multiple Vitamin Take by mouth 0 Active (MULTI-VITAMIN PO) DAILY. aspirin (ECOTRIN) 81 MG Take 81 mg by 0 Active Oral Tab EC mouth DAILY. Cetirizine HCl 10 MG Take 1 Tab by 30 Tab 0 04/30/2017 Active Oral TABLET mouth DAILY. DISPERSIBLEIndications: Rhinitis, unspecified type Multiple Take 2 Caps by 0 Active Vitamins-Minerals mouth DAILY. (ICAPS PO) Lansoprazole 30 MG Oral take 1 capsule by 180 Cap 1 02/09/2019 Active CAPSULE DELAYED RELEASE mouth twice a day PROAIR HFA 108 (90 inhale 2 puff by 25.5 g 1 03/01/2019 Active Base) MCG/ACT mouth every 4 Inhalation Aero hours SolnIndications: Pulmonary emphysema, unspecified emphysema type ([facility]) COMBIVENT RESPIMAT inhale 1 puff by 12 g 3 03/07/2019 Active 20-100 MCG/ACT mouth four times Inhalation Aero a day SolnIndications: COPD (chronic obstructive pulmonary disease) ([facility]) fluticasone (FLONASE) [place] 2 Sprays in 1 Each 2 05/30/2019 Active 50 MCG/ACT Nasal nose DAILY. Suspension magnesium oxide 500 MG Take 250 mg by 0 Active Oral Tab mouth DAILY. Tiotropium [place] Take 2 INHL by 1 Inhaler 5 06/29/2019 Active Monohydrate 2.5 MCG/ACT inhalation DAILY. Inhalation Aero Soln albuterol (PROVENTIL, 3 mL by 360 mL 1 07/04/2019 Active VENTOLIN) (2.5 MG/3ML) Inhalation-SVN 0.083% Inhalation Nebu route EVERY FOUR Soln HOURS NEEDED (wheezing). metoprolol tartrate Take 25 mg by 0 Active (LOPRESSOR) 25 mg mouth DAILY. fluticasone (FLOVENT Take 2 Puffs by 1 Inhaler 5 07/08/2019 Active HFA) 110 MCG/ACT inhalation TWICE Inhalation DAILY. AerosolIndications: Chronic obstructive pulmonary disease with acute exacerbation ([facility]) NICOTROL 10 MG use as directed 168 Each 3 07/13/2019 Active Inhalation 1-2 TIMES PER DAY InhalerIndications: Tobacco abuse Levocetirizine Take 1 Tab by 30 Tab 5 07/18/2019 Active Dihydrochloride 5 MG mouth DAILY. Oral TabIndications: Seasonal allergies citalopram (CELEXA) 10 Take 1 Tab by 90 Tab 0 07/18/2019 Active MG Oral TabIndications: mouth DAILY. 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 Depression Valladares esophagus documented as of this encounter (statuses as of 07/21/2019) Resolved Problems Problem Noted Date Resolved Date Tobacco abuse 08/24/2008 04/14/2019 Overview: Began age 17, 1 packs per day Quit 11/17, reastarted 03/17 documented as of this encounter (statuses as of 07/21/2019) Immunizations Name Administration Dates Next Due Influenza (IM) Preservative Free 07/19/2013 Influenza Vaccine High Dose 08/06/2018, 07/19/2014, 08/15/2007 Influenza Vaccine Whole 08/22/2008 PNEUMOCOCCAL POLYSACCHARIDE VACCINE 07/19/2013, 03/14/2010 Pneumococcal Conjugate(13 Valent) 08/10/2015 TDAP Vaccine 06/08/2018 ZOSTER (ZOSTAVAX) VACCINE 11/24/2013 documented as of this encounter Social History Tobacco Use Types Packs/Day Years Used Date Former Smoker Cigarettes 0.5 15 Quit: 11/09/2017 Smokeless Tobacco: Never Used Alcohol Use Drinks/Week oz/Week Comments No 0 Standard drinks or equivalent 0.0 Sex Assigned at Date Recorded Not on file Job Start Date Occupation Industry Not on file Not on file Not on file Travel History Travel Start Travel End No recent travel history available. documented as of this encounter Last Filed Vital Signs Vital Sign Reading Time Taken Comments Blood Pressure 170/94 07/21/2019 1:45 PM EDT Pulse - - Temperature - - Respiratory Rate - - Oxygen Saturation - - Inhaled Oxygen Concentration - - Weight 53.5 kg (118 lb) 07/21/2019 1:45 PM EDT Height 157.5 cm (5' 2") 07/21/2019 1:45 PM EDT Body Mass Index 21.58 07/21/2019 1:45 PM EDT documented in this encounter Patient Instructions Patient InstructionsRosa Barlow FNP - 07/21/2019 1:40 PM EDTCall cardiology Labs today To ER if dizzy, feeling faint, weakness documented in this encounter Progress Notes Rosa Barlow FNP - 07/21/2019 1:40 PM EDT PATIENT: Jaqueline Mack : 1945 DATE OF SERVICE: 07/21/2019 CHIEF COMPLAINT: Chief Complaint Patient presents with Check Up Patient states that her BP is dropping when she's sitting still. Subjective HISTORY OF PRESENT ILLNESS: Jaqueline Mack is a 73-y.o. female. HPI Per pt - felt BP was going too low - called cardiology and was told to hold beta sunita. Today BP 170/94. Message sent to PCP and labs have been ordered 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 dysplastic cells 2012 no dysplastic cells so 2 years 2014 possible dysplasia 6 mo again Candidal esophagitis (HCC) COPD Depression GERD (gastroesophageal reflux disease) 2009 barretts [place] (hard of hearing) left Malignant neoplasm of bronchus and lung, unspecified site 1990 Osteopenia 2012 Frax 7.6 and .8 Other and unspecified hyperlipidemia Postmenopausal Sinusitis Squamous cell carcinoma of hand 2017 SVT (supraventricular tachycardia) (HCC) Tobacco use disorder Family History Problem Relation Age of Onset Non-Applicable Unknown old age Heart Mother Heart Father Heart Sister COPD Brother No Known Problems Daughter No Known Problems Son Heart Brother No Known Problems Brother No Known Problems Brother Diabetes Sister No Known Problems Sister No Known Problems Sister No Known Problems Sister No Known Problems Brother Alcohol/Drug Son 41 OD Current Outpatient Medications Medication Sig albuterol (PROVENTIL, VENTOLIN) (2.5 MG/3ML) 0.083% Inhalation Nebu Soln 3 mL by Inhalation-SVN route EVERY FOUR HOURS NEEDED (wheezing). aspirin (ECOTRIN) 81 MG Oral Tab EC Take 81 mg by mouth DAILY. Cetirizine HCl 10 MG Oral TABLET DISPERSIBLE Take 1 Tab by mouth DAILY. citalopram (CELEXA) 10 MG Oral Tab Take 1 Tab by mouth DAILY. COMBIVENT RESPIMAT 20-100 MCG/ACT Inhalation Aero Soln inhale 1 puff by mouth four times a day fluticasone (FLONASE) 50 MCG/ACT Nasal Suspension [place] 2 Sprays in nose DAILY. fluticasone (FLOVENT HFA) 110 MCG/ACT Inhalation Aerosol Take 2 Puffs by inhalation TWICE DAILY. Lansoprazole 30 MG Oral CAPSULE DELAYED RELEASE take 1 capsule by mouth twice a day Levocetirizine Dihydrochloride 5 MG Oral Tab Take 1 Tab by mouth DAILY. magnesium oxide 500 MG Oral Tab Take 250 mg by mouth DAILY. metoprolol tartrate (LOPRESSOR) 25 mg Take 25 mg by mouth DAILY. Multiple Vitamin (MULTI-VITAMIN PO) Take by mouth DAILY. Multiple Vitamins-Minerals (ICAPS PO) Take 2 Caps by mouth DAILY. NICOTROL 10 MG Inhalation Inhaler use as directed 1-2 TIMES PER DAY PROAIR HFA 108 (90 Base) MCG/ACT Inhalation Aero Soln inhale 2 puff by mouth every 4 hours Tiotropium [place] Monohydrate 2.5 MCG/ACT Inhalation Aero Soln Take 2 INHL by inhalation DAILY. No current facility-administered medications for this visit. No Known Allergies Social History Socioeconomic History Marital status: Spouse name: Not on file Number of children: Not on file Years of education: Not on file Highest education level: Not on file Occupational History Not on file Social Needs Financial resource strain: Not on file Food insecurity: Worry: Not on file Inability: Not on file Transportation needs: Medical: Not on file Non-medical: Not on file Tobacco Use Smoking status: Former Smoker Packs/day: 0.50 Years: 15.00 Pack years: 7.50 Types: Cigarettes Last attempt to quit: 11/09/2017 Years since quittin.6 Smokeless tobacco: Never Used Substance and Sexual Activity Alcohol use: No Alcohol/week: 0.0 standard drinks Drug use: No Sexual activity: Yes Partners: Male Lifestyle Physical activity: Days per week: Not on file Minutes per session: Not on file Stress: Not on file Relationships Social connections: Talks on phone: Not on file Gets together: Not on file Attends scientologist service: Not on file Active member of club or organization: Not on file Attends meetings of clubs or organizations: Not on file Relationship status: Not on file Intimate partner violence: Fear of current or ex partner: Not on file Emotionally abused: Not on file Physically abused: Not on file Forced sexual activity: Not on file Other Topics Concern Back Care Not Asked Bike Helmet Not Asked Blood Transfusions Not Asked Caffeine Concern Not Asked Exercise Not Asked Hobby Hazards Not Asked International Travel Not Asked Service Not Asked Occupational Exposure Not Asked Seat Belt Not Asked Self-Exams Not Asked Sleep Concern Not Asked Special Diet Not Asked Stress Concern Not Asked Weight Concern No Social History Narrative Lives in [facility], spends winter in [place] smokes REVIEW OF SYSTEMS: Review of Systems Constitutional: Positive for malaise/fatigue. Negative for chills and fever. Eyes: Negative for blurred vision and double vision. Respiratory: Negative for shortness of breath. Cardiovascular: Negative for chest pain. Neurological: Negative for dizziness, sensory change, speech change, weakness and headaches. Objective PHYSICAL EXAM: VITALS: BP (!) 170/94 | Ht 5' 2" (1.575 m) | Wt 118 lb (53.5 kg) | BMI 21.58 kg/m Body massindex is 21.58 kg/m. Physical Exam Constitutional: She is oriented to person, place, and time. She appears well- developed and well-nourished. BP elevated today HENT: Head: Normocephalic and atraumatic. Mouth/Throat: Oropharynx is clear and moist. Neck: No JVD present. Cardiovascular: Normal rate and regular rhythm. Pulmonary/Chest: Effort normal and breath sounds normal. Neurological: She is alert and oriented to person, place, and time. Skin: Skin is warm and dry. She is not diaphoretic. No cyanosis. No pallor. Vitals reviewed. ASSESSMENT / IMPRESSION: ICD-9-CM ICD-10-CM 1. Essential hypertension 401.9 I10 2. Atrial tachycardia (HCC) 427.89 I47.1 3. Lipid screening V77.91 Z13.220 LIPID PROFILE 4. Malaise and fatigue 780.79 R53.81 THYROID STIMULATING HORMONE R53.83 CBC WITH DIFFERENTIAL MAGNESIUM LEVEL BASIC METABOLIC PANEL Plan Call cardiology - pt actually called office and reported BP - waiting for return call from MD Labs today To ER if dizzy, feeling faint, weakness Author: NICKY Campbell 07/21/2019 14:04 documented in this encounter Plan of Treatment Name Type Priority Associated Diagnoses Date/Time LIPID PROFILE Lab Routine Lipid screening 07/21/2019 2:06 PM EDT THYROID STIMULATING HORMONE Lab Routine Malaise and fatigue 07/21/2019 2: 06 PM EDT CBC WITH DIFFERENTIAL Lab Routine Malaise and fatigue 07/21/2019 2:06 PM EDT MAGNESIUM LEVEL Lab Routine Malaise and fatigue 07/21/2019 2:06 PM EDT BASIC METABOLIC PANEL Lab Routine Malaise and fatigue 07/21/2019 2:06 PM EDT Health Maintenance Due Date Last Done Comments FALL RISK ASSESSMENT 2012 PAP SMEAR 03/30/2013 03/30/2012, 08/24/2008 ZOSTER IMMUNIZATION SERIES 01/19/2014 11/24/2013 (2 of 3) EGD (ESOPHAGODUODENOSCOPY) 07/29/2017 07/29/2016, 08/13/2015, 08/15/2013, Additional history exists MEDICARE ANNUAL WELLNESS 05/13/2019 05/13/2018, 07/19/2013 VISIT INFLUENZA VACCINE (#1) 2019 08/06/2018, 07/19/2014, 07/19/2013, Additional history exists MAMMOGRAM (SCREENING) 02/24/2020 02/23/2019, 08/04/2017, 06/17/2016, Additional history exists DEPRESSION SCREENING 04/14/2020 04/14/2019, 05/13/2018 LIPID DISORDER SCREENING 05/13/2023 05/13/2018, 03/17/2017, 06/20/2015, Additional history exists OSTEOPOROSIS SCREENING 08/05/2023 08/05/2013 HEPATITIS C SCREENING Completed 07/04/2014 PNEUMOCOCCAL 65+YRS Completed 08/10/2015, 07/19/2013, 03/14/2010 HPV IMMUNIZATION SERIES Aged Out No longer eligible based on patient's age to complete this topic MENINGOCOCCAL VACCINE IMM Aged Out No longer eligible based on patient's age to complete this topic documented as of this encounter Goals Goal Patient Goal Associated Recent Patient-Stated? Author Type Problems Progress Smoking COPD No Karen Barlow FNP Note: This is an individualized treatment (COPD) goal for Jaqueline Mack: Quit smoking immediately! Your provider has information and resources that may help you to quit. Depression screen Depression 10 (05/13/2018 11:23 AM No Rosa Barlow FNP (PHQ-9) total score < 5 EDT) Note: This is an individualized treatment (depression) goal for Jaqueline Mack: Displayed above is your goal for a depression screening (PHQ-9) score that would indicate good control of your depression. Lifestyle - Current Smoker Lifestyle No Andrea Su MD Note: 1. Set a quit date 2. Use of medications-talk with doctor about current medications for nicotine replacement (patch, gum, lozenges, varenicline, buprupion) 3. Gradually reduce the number of cigarettes daily. This will help to eventually stop. 4. Connect to behavior counseling-[facility] Quit lines ([phone] or [facility]- [phone]), stop smoking groups-[facility] or Keep a regular sleep schedule Lifestyle No Rosa Barlow FNP Note: This is an individualized lifestyle goal for Jaqueline Mack: Please maintain a regular sleep schedule. This may help with some symptoms of depression. Keep immunizations current Lifestyle No Rosa Barlow FNP Note: This is an individualized lifestyle goal for Jaqueline [place]: Please be sure to keep up-to-date on recommended immunizations. For example, this would include a yearly influenza vaccine. Immunization status can be seen by looking at the Health Maintenance sections of your [facility], Plan of Care, and any After Visit Summaries. Take all prescribed medications as Self-management No Rosa Barlow FNP directed Note: This is an individualized self-management goal for Jaqueline [place]pos [place]: Please take all prescribed medications as directed. 1. Do not skip doses. If you cannot afford your medications, talk with your doctor. 2. Use a pill reminder system such as a pill box if needed. Your pharmacist can help you with this. 3. Contact your Pharmacy 5 days before your medication runs out. If you cannot take your medications for any reasons, talk with your doctor. 4. Please bring all of your medication bottles and inhalers (or a list of all your medications/inhalers) with you to every visit. Potential barriers to meeting all of your care plan goals will continue to be addressed on an ongoing basis. documented as of this encounter Results Not on filedocumented in this encounter Visit Diagnoses Diagnosis Essential hypertension - Primary Unspecified essential hypertension Atrial tachycardia (HCC) Other specified cardiac dysrhythmias Lipid screening Screening for lipoid disorders Malaise and fatigue Other malaise and fatigue documented in this encounter Insurance Payer Benefit Plan / Subscriber ID Effective Dates Phone Address Type Group MEDICARE MEDICARE PART A & B xxxxxxxxxxx 1993-Present Medicare [facility] xxxxxxxxx 2016-Present [place] (Home) [place], [place] [phone] [id number] (Work) documented as of this encounter
--- OUTSIDE RECORDS SUMMARY | 2019-07-21 17:32 | XMS REPORT | Summary of Care ---
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 aspirin (ECOTRIN) 81 Take 81 mg by 0 Active MG Oral Tab EC mouth DAILY. Cetirizine HCl 10 MG Take 1 Tab by 30 Tab 0 04/30/2017 Active Oral TABLET mouth DAILY. DISPERSIBLEIndicatio ns: Rhinitis, unspecified type Multiple Take 2 Caps by 0 Active Vitamins-Minerals mouth DAILY. (ICAPS PO) Lansoprazole 30 MG take 1 capsule 180 Cap 1 02/09/2019 Active Oral CAPSULE DELAYED by mouth twice RELEASE a day PROAIR HFA 108 (90 inhale 2 puff 25.5 g 1 03/01/2019 Active Base) MCG/ACT by mouth every Inhalation Aero 4 hours SolnIndications: Pulmonary emphysema, unspecified emphysema type ([facility]) COMBIVENT RESPIMAT inhale 1 puff 12 g 3 03/07/2019 Active 20-100 MCG/ACT by mouth four Inhalation Aero times a day SolnIndications: COPD (chronic obstructive pulmonary disease) ([facility]) fluticasone [place] 2 Sprays 1 Each 2 05/30/2019 Active (FLONASE) 50 MCG/ACT in nose DAILY. Nasal Suspension magnesium oxide 500 Take 250 mg by 0 Active MG Oral Tab mouth DAILY. Tiotropium [place] Take 2 INHL by 1 Inhaler 5 06/29/2019 Active Monohydrate 2.5 inhalation MCG/ACT Inhalation DAILY. Aero Soln albuterol 3 mL by 360 mL 1 07/04/2019 Active (PROVENTIL, Inhalation-SVN VENTOLIN) (2.5 route EVERY MG/3ML) 0.083% FOUR HOURS Inhalation Nebu Soln NEEDED (wheezing). metoprolol tartrate Take 25 mg by 0 Active (LOPRESSOR) 25 mg mouth DAILY. fluticasone (FLOVENT Take 2 Puffs by 1 Inhaler 5 07/08/2019 Active HFA) 110 MCG/ACT inhalation Inhalation TWICE DAILY. AerosolIndications: Chronic obstructive pulmonary disease with acute exacerbation ([facility]) amoxicillin-clavulan Take 1 Tab by 20 Tab 0 07/08/2019 Active ic acid (AUGMENTIN) mouth TWICE 9 500-125 MG Oral DAILY for 10 TabIndications: days. Acute maxillary sinusitis, recurrence not specified NICOTROL 10 MG use as directed 168 Each 3 07/13/2019 Active Inhalation 1-2 TIMES PER InhalerIndications: DAY Tobacco abuse Levocetirizine Take 1 Tab by 30 Tab 5 07/18/2019 Active Dihydrochloride 5 MG mouth DAILY. Oral TabIndications: Seasonal allergies citalopram (CELEXA) Take 1 Tab by 90 Tab 0 07/18/2019 Active 10 MG Oral mouth DAILY. TabIndications: Anxiety and depression Levocetirizine Take by mouth. 0 Discontinued Dihydrochloride 5 MG 9 Oral Tab documented as of this encounter (statuses as of 07/18/2019) Active Problems Problem Noted Date Atrial tachycardia [...] as of this encounter (statuses as of 07/18/2019) Resolved Problems Problem Noted Date Resolved Date Tobacco abuse 08/24/2008 04/14/2019 Overview: Began age 17, 1 packs per day Quit 11/17, reastarted 03/17 documented as of this encounter (statuses as of 07/18/2019) Immunizations Name Administration Dates Next Due Influenza [...] Sign Reading Time Taken Comments Blood Pressure 132/82 07/18/2019 2:07 PM EDT Pulse 84 07/18/2019 2:07 PM EDT Temperature 37.4 07/18/2019 2:07 PM EDT C (99.4 F) Respiratory Rate - - Oxygen Saturation - - Inhaled Oxygen Concentration - - Weight 53.5 kg (118 lb) 07/18/2019 2:07 PM EDT Height 157.5 cm (5' 2") 07/18/2019 2:07 PM EDT Body Mass Index 21.58 07/18/2019 2:07 PM EDT documented in this encounter Patient Instructions Patient InstructionsRosa Barlow FNP - 07/18/2019 2:00 PM EDTStart Celexa low dose daily Follow up 4-6 weeks Call if any problems or concerns documented in this encounter Progress Notes Rosa Barlow FNP - 07/18/2019 2:00 PM EDT PATIENT: Jaqueline Mack : 1945 DATE OF SERVICE: 07/18/2019 CHIEF COMPLAINT: Chief Complaint Patient presents with Check Up Patient's cardilogist suggested that she follow up to start anxiety meds to help with heart palptations Medication Refill Levocetirizine 5mg Subjective HISTORY OF PRESENT ILLNESS: Jaqueline Mack is a 73-y.o. female. [facility] Cardiology advised pt to get anxiety meds due to palpitations. 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 amoxicillin-clavulanic acid (AUGMENTIN) 500-125 MG Oral Tab Take 1 Tab by mouth TWICE DAILY for 10 days. aspirin (ECOTRIN) 81 MG Oral Tab EC Take 81 mg by mouth DAILY. Cetirizine HCl 10 MG Oral TABLET DISPERSIBLE Take 1 Tab by mouth DAILY. citalopram (CELEXA) 10 MG Oral Tab Take 1 Tab by mouth DAILY. COMBIVENT RESPIMAT 20-100 MCG/ACT Inhalation Aero Soln inhale 1 puff by mouth four times a day fluticasone (FLONASE) 50 MCG/ACT Nasal Suspension [place] 2 Sprays in nose DAILY. fluticasone (FLOVENT [...] puff by mouth every 4 hours Tiotropium [place] Monohydrate 2.5 MCG/ACT Inhalation Aero Soln Take [...] file Gets together: Not on file Attends gnosticist service: Not on file Active member of [...] Concern No Social History Narrative Lives in [facility], spends winter in [place] smokes REVIEW OF SYSTEMS: Review of Systems Constitutional: Positive for malaise/fatigue. Negative for chills and fever. HENT: Positive for ear pain. Respiratory: Negative for shortness of breath. Cardiovascular: Positive for palpitations. Negative for chest pain. Neurological: Negative for dizziness and headaches. Psychiatric/Behavioral: Positive for depression. The patient is nervous/anxious. Objective PHYSICAL EXAM: VITALS: BP 132/82 | Pulse 84 | Temp 99.4 F (37.4 C) | Ht 5' 2" ( 1.575 m) | Wt 118 lb (53.5 kg) | BMI 21.58 kg/m Body mass index is 21.58 kg/m. Physical Exam Constitutional: She is oriented to person, place, and time. Vital signs are normal. frail HENT: Head: Normocephalic and atraumatic. Right Ear: Tympanic membrane is retracted. Left Ear: Tympanic membrane is scarred and retracted. Nose: Nose normal. Mouth/Throat: Uvula is midline and oropharynx is clear and moist. Eyes: Pupils are equal, round, and reactive to light. Neck: Normal range of motion. No JVD present. Lymphadenopathy: She has no cervical adenopathy. Neurological: She is alert and oriented to person, place, and time. Skin: Skin is warm and dry. She is not diaphoretic. No cyanosis. No pallor. Psychiatric: Her mood appears anxious. She expresses no suicidal plans and no homicidal plans. Increased palpitations when at home dealing with invalid spouse - feels on edge all the time - OK when not at home. Cardiology suggested treatment for Anxiety - has been on Celexa in past - pt does notrecall if helpful or not - will restart this at a low dose and monitor closely Vitals reviewed. ASSESSMENT / IMPRESSION: ICD-9-CM ICD-10-CM 1. Atrial tachycardia (HCC) 427.89 I47.1 2. Anxiety and depression 300.00 F41.9 citalopram (CELEXA) 10 MG Oral Tab 311 F32.9 3. Seasonal allergies 477.9 J30.2 Levocetirizine Dihydrochloride 5 MG Oral Tab Plan Start Celexa low dose daily Follow up 4-6 weeks Call if any problems or concerns Author: NICKY Campbell 07/18/2019 14:55 documented in this encounter Plan of Treatment Health Maintenance Due Date Last Done Comments [...] to eventually stop. 4. Connect to behavior counseling-[facility] Quit lines ([phone] or [facility]- [phone]), stop smoking groups-[facility] or Keep a regular sleep schedule Lifestyle No Rosa Barlow FNP Note: This is an individualized lifestyle goal for Jaqueline Beth Frederick: Please maintain a regular sleep schedule. This may help with some symptoms of depression. Keep immunizations current Lifestyle No Rosa Barlow FNP Note: This is an individualized lifestyle goal for Jaqueline E Frederick: Please be sure to keep up-to-date on recommended immunizations. For example, this would include a yearly influenza vaccine. Immunization status can be seen by looking at the Health Maintenance sections of your e[employer], Plan of Care, and any After Visit Summaries. Take all prescribed medications as Self-management No Rosa Barlow FNP directed Note: This is an individualized self-management goal for Jaqueline E Frederick: Please take all prescribed medications as [...] filedocumented in this encounter Visit Diagnoses Diagnosis Atrial tachycardia (HCC) - Primary Other specified cardiac dysrhythmias Anxiety and depression Dysthymic disorder Seasonal allergies Allergic rhinitis, cause unspecified documented in this encounter Insurance Payer Benefit Plan / Subscriber ID Effective Dates Phone Address Type Group MEDICARE MEDICARE PART A & B xxxxxxxxxxx 1993-Present Medicare UHC EMPIRE U[employer]-EMPIRE PLAN xxxxxxxxx 2016-Present [place] Guarantor Name Account Type Relation to Date of Phone Billing Patient Address FrederickJaqueline Campos Personal/Family 1945 67 [facility] (Home) [place], [place] [phone] [id number] (Work) documented as of this encounter
--- OUTSIDE RECORDS SUMMARY | 2019-07-21 17:32 | XMS REPORT | Summary of Care ---
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 PO) aspirin (ECOTRIN) Take 81 mg by 0 Active 81 MG Oral Tab EC mouth DAILY. Cetirizine HCl 10 Take 1 Tab by 30 Tab 0 04/30/2017 Active MG Oral TABLET mouth DAILY. DISPERSIBLEIndica tions: Rhinitis, unspecified type Multiple Take 2 Caps by 0 Active Vitamins-Minerals mouth DAILY. (ICAPS PO) Nicotine Take 1 Puff by 180 Each 3 05/25/2018 Active INHALATION 10 mg inhalation 10 MG Inhalation DIRECTED. 1-2 a InhalerIndication day s: Tobacco abuse Lansoprazole 30 take 1 capsule 180 Cap 1 02/09/2019 Active MG Oral CAPSULE by mouth twice DELAYED RELEASE a day PROAIR HFA 108 inhale 2 puff 25.5 g 1 03/01/2019 Active (90 Base) MCG/ACT by mouth every Inhalation Aero 4 hours SolnIndications: Pulmonary emphysema, unspecified emphysema type ([facility]) COMBIVENT inhale 1 puff 12 g 3 03/07/2019 Active RESPIMAT 20-100 by mouth four MCG/ACT times a day Inhalation Aero SolnIndications: COPD (chronic obstructive pulmonary disease) ([facility]) fluticasone [place] 2 Sprays 1 Each 2 05/30/2019 Active (FLONASE) 50 in nose DAILY. MCG/ACT Nasal Suspension magnesium oxide Take 250 mg by 0 Active 500 MG Oral Tab mouth DAILY. Tiotropium Take 2 INHL by 1 Inhaler 5 06/29/2019 Active [place] inhalation Monohydrate 2.5 DAILY. MCG/ACT Inhalation Aero Soln albuterol 3 mL by 360 mL 1 07/04/2019 Active (PROVENTIL, Inhalation-SVN VENTOLIN) (2.5 route EVERY MG/3ML) 0.083% FOUR HOURS Inhalation Nebu NEEDED Soln (wheezing). metoprolol Take 25 mg by 0 Active tartrate mouth DAILY. (LOPRESSOR) 25 mg fluticasone Take 2 Puffs by 1 Inhaler 5 07/08/2019 Active (FLOVENT HFA) 110 inhalation MCG/ACT TWICE DAILY. Inhalation AerosolIndication s: Chronic obstructive pulmonary disease with acute exacerbation ([facility]) amoxicillin-clavu Take 1 Tab by 20 Tab 0 07/08/2019 Active lanic acid mouth TWICE 9 (AUGMENTIN) DAILY for 10 500-125 MG Oral days. TabIndications: Acute maxillary sinusitis, recurrence not specified atenolol Take 1 Tab by 180 Tab 1 05/25/2019 Discontinued (No (TENORMIN) 50 MG mouth TWICE 9 longer Oral Tab DAILY. clinically indicated) levofloxacin Take 1 Tab by 7 Tab 1 06/04/2019 Discontinued (No (LEVAQUIN) 500 MG mouth DAILY 9 longer Oral Tab 0700 on Empty clinically Stomach. indicated) documented as of this encounter (statuses as of 07/08/2019) Active Problems Problem Noted Date Atrial tachycardia [...] as of this encounter (statuses as of 07/08/2019) Resolved Problems Problem Noted Date Resolved Date Tobacco abuse 08/24/2008 04/14/2019 Overview: Began age 17, 1 packs per day Quit 11/17, reastarted 03/17 documented as of this encounter (statuses as of 07/08/2019) Immunizations Name Administration Dates Next Due Influenza [...] Sign Reading Time Taken Comments Blood Pressure 140/70 07/08/2019 11:08 AM EDT Pulse 80 07/08/2019 11:08 AM EDT Temperature 36.8 07/08/2019 11:08 AM EDT C (98.3 F) Respiratory Rate 16 07/08/2019 11:08 AM EDT Oxygen Saturation - - Inhaled Oxygen Concentration - - Weight 53.5 kg (118 lb) 07/08/2019 11:08 AM EDT Height 157.5 cm (5' 2") 07/08/2019 11:08 AM EDT Body Mass Index 21.58 07/08/2019 11:08 AM EDT documented in this encounter Patient Instructions Patient InstructionsRosa Barlow FNP - 07/08/2019 11:00 AM EDTRest Fluids medications as directed - Rinse mouth well after Flovent salt water gargle as needed for sore/scratchy throat Call if symptoms fail to resolve or worsen documented in this encounter Progress Notes Rosa Barlow FNP - 07/08/2019 11:00 AM EDT PATIENT: Jaqueline Mack : 1945 DATE OF SERVICE: 07/08/2019 CHIEF COMPLAINT: Chief Complaint Patient presents with Other congested in her head- pressure below eyes when she looks down- coughing up mucous for about a week- production is yellow sometimes clear Subjective HISTORY OF PRESENT ILLNESS: Jaqueline Mack is a 73-y.o. female. HPI Head congestion x 1 week. Some chest congestion. Using Combivent - wants to go back to Flovent. 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 COMBIVENT RESPIMAT 20-100 MCG/ACT Inhalation Aero Soln inhale 1 puff by mouth four times a day fluticasone (FLONASE) 50 MCG/ACT Nasal Suspension [place] 2 Sprays in nose DAILY. fluticasone (FLOVENT HFA) 110 MCG/ACT Inhalation Aerosol Take 2 Puffs by inhalation TWICE DAILY. Lansoprazole 30 MG Oral CAPSULE DELAYED RELEASE take 1 capsule by mouth twice a day magnesium oxide 500 MG Oral Tab Take 250 mg by mouth DAILY. metoprolol tartrate (LOPRESSOR) 25 mg Take 25 mg by mouth DAILY. Multiple Vitamin (MULTI-VITAMIN PO) Take by mouth DAILY. Multiple Vitamins-Minerals (ICAPS PO) Take 2 Caps by mouth DAILY. Nicotine INHALATION 10 mg 10 MG Inhalation Inhaler Take 1 Puff by inhalation DIRECTED. 1-2 a day PROAIR HFA 108 (90 Base) MCG/ACT Inhalation Aero Soln inhale 2 puff by mouth every 4 hours Tiotropium [place] Monohydrate 2.5 MCG/ACT Inhalation Aero Soln Take [...] file Gets together: Not on file Attends baptism service: Not on file Active member of [...] Concern No Social History Narrative Lives in [facility], spends winter in [place] smokes REVIEW OF SYSTEMS: Review of Systems Constitutional: Positive for malaise/fatigue. Negative for chills and fever. HENT: Positive for congestion. Respiratory: Positive for cough, sputum production and shortness of breath. Neurological: Positive for headaches. Objective PHYSICAL EXAM: VITALS: BP 140/70 (BP Location: Left arm, Patient Position: Sitting) | Pulse 80 | Temp 98.3 F(36.8 C) (Tympanic) | Resp 16 | Ht 5' 2" (1.575 m) | Wt 118 lb (53.5 kg) | BMI 21.58 kg/m Body mass index is 21.58 kg/m. Physical Exam Constitutional: She is oriented to person, place, and time. Vital signs are normal. She appears well-developed and well-nourished. HENT: Head: Normocephalic and atraumatic. Right Ear: Tympanic membrane is retracted. Tympanic membrane is not erythematous. Left Ear: Tympanic membrane is retracted. Tympanic membrane is not erythematous. Nose: Mucosal edema and rhinorrhea present. Mouth/Throat: Uvula is midline and oropharynx is clear and moist. Eyes: Pupils are equal, round, and reactive to light. EOM are normal. Neck: Normal range of motion. No JVD present. Cardiovascular: Normal rate and regular rhythm. Pulmonary/Chest: Effort normal. No respiratory distress. She has wheezes. She has no rales. Lymphadenopathy: She has no cervical adenopathy. Neurological: She is alert and oriented to person, place, and time. Skin: Skin is warm and dry. No cyanosis. Vitals reviewed. ASSESSMENT / IMPRESSION: ICD-9-CM ICD-10-CM 1. Chronic obstructive pulmonary disease with acute exacerbation (HCC) 491.21 J44.1 fluticasone (FLOVENT HFA) 110 MCG/ACT Inhalation Aerosol 2. Acute maxillary sinusitis, recurrence not specified 461.0 J01.00 amoxicillin- clavulanic acid (AUGMENTIN) 500-125 MG Oral Tab Plan Rest Fluids medications as directed - Rinse mouth well after Flovent salt water gargle as needed for sore/scratchy throat Call if symptoms fail to resolve or worsen Author: NICKY Campbell 07/08/2019 11:29 documented in this encounter Plan of Treatment [...] an individualized treatment (depression) goal for Jaqueline Campos Frederick: Displayed above is your goal for a [...] to eventually stop. 4. Connect to behavior counseling-State Quit lines ([phone] [facility]- [phone]), stop smoking groups-[facility] or Keep a regular sleep schedule Lifestyle No Rosa Barlow FNP Note: This is an individualized lifestyle goal for Jaqueline Mack: Please maintain a regular sleep schedule. This may help with some symptoms of depression. Keep immunizations current Lifestyle No Rosa Barlow FNP Note: This is an individualized lifestyle goal for Jaqueline Mack: Please be sure to keep up-to-date on recommended immunizations. For example, this would include a yearly influenza vaccine. Immunization status can be seen by looking at the Health Maintenance sections of your e[facility], Plan of Care, and any After Visit Summaries. Take all prescribed medications as Self-management No Rosa Barlow FNP directed Note: This is an individualized self-management goal for Jaqueline Mack: Please take all prescribed medications as directed. [...] filedocumented in this encounter Visit Diagnoses Diagnosis Chronic obstructive pulmonary disease with acute exacerbation (HCC) - Primary Obstructive chronic bronchitis with exacerbation Acute maxillary sinusitis, recurrence not specified documented in this encounter Insurance Payer Benefit Plan / Subscriber ID Effective Dates Phone Address Type Group MEDICARE MEDICARE PART A & B xxxxxxxxxxx 1993-Present Medicare UHC EMPIRE [facility]-EMPIRE PLAN xxxxxxxxx 2016-Present [place] Guarantor Name Account Type Relation to Date of Phone Billing Patient Address Melissa Mackalbertina Campos Personal/Family 1945 67 [facility] (Home) [place], [place] [phone] [id number] (Work) documented as of this encounter
[2019-07-21 17:39] LABS: ABS Basophils 0.1 10^3/ul (0-0.2); ABS Eosinophils 0.2 10^3/ul (0-0.6); ABS Lymphocytes 2.7 10^3/ul (1.0-4.8); ABS Monocytes 0.9 10^3/ul (0-0.8); ABS Neutrophils 5.6 10^3/ul (1.5-7.7); Eosinophil % 2.1 %; Hematocrit 44 % (35-47); Lymphocyte % 28.6 %; Mean Corpuscular HGB Conc 34 g/dL (31-36); Mean Corpuscular Hemoglobin 30 pg (27-31); Mean Corpuscular Volume 89 fL (80-97); Mean Platelet Volume 6.8 fL (7.4-10.4); Nucleated Red Blood Cells % 0.1; Platelet Count 391 10^3/uL (150-450); Red Blood Count 4.93 10^6 /uL (3.70-4.87); Red Cell Distribution Width 13 % (10-15); White Blood Count 9.5 10^3/uL (3.5-10.8)
--- NOTE | 2019-07-21 17:40 | ED ---
Palpitations / Dysrhythmia - HPI Summary HPI Summary: 73 year old F presenting to [facility] accompanied by daughter with a chief complaint of intermittent episodes of palpitations since 3 days ago. Patient states that during these episodes, her heart rate increases, her heart feels like it's falling, and then patient gets light headed. Patient denies any pain. The patient rates the pain 0/10 in severity. Symptoms aggravated by nothing. Symptoms alleviated by nothing. Patient denies shortness of breath. Daughter states patient has Hx atrial fibrillation. Patient's deputy sheriff court services is Dr. Thomas. Per daughter, Dr. Thomas recently adjusted patient's medication from 1 tablet to 1/2 tablet 1.5 week ago because patient would become hypotensive after taking 1 tablet. Per daughter, patient takes 1/2 tablet at night. Patient states she takes aspirin 81 mg. Medications reviewed. Allergies noted. - History of Current Complaint Chief Complaint: EDDysrhythmPalp Time Seen by Provider: 07/21/19 17:32 Hx Obtained From: Patient, Family/Announcer - daughter Onset/Duration: Lasting Days - 3, Still Present Timing: Intermittent Episodes Lasting: Severity Currently: None Aggravating: Nothing Alleviating: Nothing Associated Signs & Symptoms: Negative - shortness of breath - Allergy/Home Medications Allergies/Adverse Reactions: Allergies Allergy/AdvReac Type Severity Reaction Status Date / Time sulfamethoxazole Allergy Rash Verified 07/21/19 17:25 [From Bactrim] trimethoprim [From Bactrim] Allergy Rash Verified 07/21/19 17:25 varenicline [From Chantix] Allergy Rash Verified 07/21/19 17:25 POWDER IN ALL GLOVES Allergy Itching Uncoded 07/21/19 17:25 Home Medications: Home Medications Albuterol 2.5MG/3ML (0.083%)* [Ventolin 2.5 MG/3 ML NEB.DEV*] 6 ml INH Q4HR PRN 07/21/19 [History Confirmed 07/21/19] B2/Vits A,C,E/Lut/Zeaxanth/Min [Icaps Tablet] 2 each PO DAILY 07/21/19 [History Confirmed 07/21/19] Citalopram TAB* [CeleXA TAB*] 10 mg PO DAILY 07/21/19 [History Confirmed ] Lansoprazole SOLUTAB* [Prevacid Solutab*] 30 mg PO BID 07/21/19 [History Confirmed 07/21/19] LevoCETirizine TAB (NF) [Xyzal TAB (NF)] 5 mg PO DAILY 07/21/19 [History Confirmed 07/21/19] Magnesium Oxide [Magnesium] 250 mg PO DAILY 07/21/19 [History Confirmed 07/21/19 ] Metoprolol Succinate XL TAB* [Toprol XL TAB*] 12.5 mg PO DAILY 07/21/19 [ History Confirmed 07/21/19] Multivitamins/Minerals TAB* [Theragran/minerals TAB*] 1 tab PO DAILY 07/21/19 [ History Confirmed 07/21/19] Nicotine [Nicotrol NS 10 MG/ML NASAL SPRAY] 10 mg NASAL BID 07/21/19 [History Confirmed 07/21/19] Tiotropium CAP.INH (NF) [Spiriva CAP.INH*] 2 cap INH DAILY 07/21/19 [History Confirmed 07/21/19] PMH/Surg Hx/FS Hx/Imm Hx Cardiovascular History: Reports: Hx Atrial Fibrillation Respiratory History: Reports: Hx Chronic Obstructive Pulmonary Disease (COPD) Denies: Hx Asthma GI History: Reports: Hx Gastroesophageal Reflux Disease - ON PRILOSEC FOR, Hx Hiatal Hernia Musculoskeletal History: Reports: Hx Arthritis - SPINE Sensory History: Reports: Hx Cataracts - BILATERAL, Hx Contacts or Glasses - GLASSES, Hx Hearing Aid - BILATERAL ONLY WEARS IN THE LEFT EAR Opthamlomology History: Reports: Hx Cataracts - BILATERAL, Hx Contacts or Glasses - GLASSES Neurological History: Reports: Hx Seizures - 3 SEIZURES- WHILE BEING SICK- 3 YEARS AGO - Surgical History Surgery Procedure, Year, and Place: 1990- RIGHT LOWER LOBECTOMY. GALLBLADDER AND GALLSTONES REMOVED- 1992-[facility]. 1970- TUBAL LIGATION. ENDOSCOPIES Hx Anesthesia Reactions: Yes - [facility]- HAD A HARD TIME WAKING UP-1992 Infectious Disease History: No Infectious Disease History: Denies: Traveled Outside the [place] in Last 30 Days - Family History Known Family History: Positive: Hypertension - Social History Alcohol Use: None Hx Substance Use: No Substance Use Type: Reports: None Hx Tobacco Use: Yes Smoking Status (MU): Former Smoker Type: Cigarettes Amount Used/How Often: 1/2 PPD X 25 YEARS ON AND OFF Have You Smoked in the Last Year: Yes Review of Systems Positive: Other - palpitations Negative: Shortness Of Breath All Other Systems Reviewed And Are Negative: Yes Physical Exam - Summary Physical Exam Summary: Constitutional: Well-developed, Well-nourished, Alert. (-) Distressed Skin: Warm, Dry HENT: Normocephalic; Atraumatic Eyes: Conjunctiva normal Neck: Musculoskeletal ROM normal neck. (-) JVD, (-) Stridor, (-) Tracheal deviation Cardio: Rhythm regular, rate normal, Heart sounds normal; Intact distal pulses; The pedal pulses are 2+ and symmetric. Radial pulses are 2+ and symmetric. (-) Murmur. Normal sinus rhythm on the monitor, HR in the 80s. Pulmonary/Chest wall: Effort normal. (-) Respiratory distress, (-) Wheezes, (-) Rales Abd: Soft, (-) tenderness, (-) Distension, (-) Guarding, (-) Rebound Musculoskeletal: (-) Edema Lymph: (-) Cervical adenopathy Neuro: Alert, Oriented x3 Psych: Mood and affect Normal Triage Information Reviewed: Yes Vital Signs On Initial Exam: Initial Vitals Temp Pulse Resp BP Pulse Ox 97.7 F 86 24 187/91 97 07/21/19 17:23 07/21/19 17:23 07/21/19 17:23 07/21/19 17:23 07/21/19 17:23 Vital Signs Reviewed: Yes Diagnostics - Vital Signs Vital Signs Temp Pulse Resp BP Pulse Ox 07/21/19 17:23 97.7 F 86 24 187/91 97 - Laboratory Result Diagrams: 07/21/19 17:30 07/21/19 17:30 Lab Statement: Any lab studies that have been ordered have been reviewed, and results considered in the medical decision making process. - Radiology CXR Radiology Interpretation Completed By: ED Physician Summary of Radiographic Findings: unchanged CXR from 02/27/19. medial spinal shift to the right. s/p lobecotmy. no acute process. pending official report - EKG 1773 EKG Rhythm: Atrial Fibrillation Summary of EKG Findings: Atrial fibrillation. RVR 1747 EKG Rhythm: Atrial Fibrillation Summary of EKG Findings: Patient is in atrial fibrilation. RVR 1935 Cardiac Rate: NL - 71 BPM EKG Rhythm: Sinus Rhythm Summary of EKG Findings: Normal sinus rhythm 71 BPM, non STEMI Re-Evaluation - Re-Evaluation First Eval Re-Evaluation Time: 17:55 Comment: patient is in atrial fibrillation Course/Dx - Course Course Of Treatment: Patient is here with palpitations over the past couple of days. Upon arrival, patient was in A. fib with RVR. By the time the patient was brought back to the room she was back into a normal sinus rhythm at a regular rate. Patient could go back into A. fib and then spontaneously convert. Patient was given a dose of 5 mg IV metoprolol as she missed her dose tonight. Patient was given 2 A of IV magnesium as she was hypomagnesemic. Patient had other blood work performed which was grossly unremarkable. Patient was encouraged to call her deputy sheriff court services in the morning. Patient was told to take 12.5 mg of metoprolol 3 times a day instead of at night. Patient is also told to take her full magnesium pill daily. - Diagnoses Provider Diagnoses: Palpitations, A-fib, Hypomagnesemia Discharge ED - Sign-Out/Discharge Documenting (check all that apply): Patient Departure - Discharge Patient Received Moderate/Deep Sedation with Procedure: No - Discharge Plan Condition: Improved Disposition: HOME Patient Education Materials: A-fib (Atrial Fibrillation) (ED), Hypomagnesemia ( ED) Referrals: Papo Thomas DO [Medical Doctor] - Andrea Su MD [Primary Care Provider] - Additional Instructions: Please call Dr. Thomas in the morning to let him know about your visit tonight and to set up an appointment in 1-3 days Please take a full magnesium pill daily Please take 1/2 of your 25 mg metoprolol pill in both the morning and the night Please return if you have chest pain, breathing difficulties, worsening palpitations, or any other concerning symptoms - Billing Disposition and Condition Condition: IMPROVED Disposition: Home - Attestation Statements Document Initiated by Epifanio: Yes Documenting Scribe: Louise Farris Provider For Whom Epifanio is Documenting (Include Credential): Eduardo Saldana MD Scribe Attestation: Louise Jarrell, scribed for Eduardo Saldana MD on 07/21/19 at 2204. Scribe Documentation Reviewed: Yes Provider Attestation: The documentation as recorded by the Louise ching Brenton accurately reflects the service I personally performed and the decisions made by me, Eduardo Saldana MD Status of [place] Document: Viewed
[2019-07-21 17:45] LABS: INR 1.03 (0.82-1.09)
[2019-07-21] MEDS ORDERED: Metoprolol Tartrate IV* 1 MG/ML 5 ML VIAL IV ONE (17:54)
[2019-07-21 17:58] LABS: Albumin 4.3 g/dL (3.2-5.2); Albumin/Globulin Ratio 1.7 (1-3); BUN/Creatinine Ratio 12.7 (8-20); Calcium 9.9 mg/dL (8.6-10.3); EGFR African American 112.7 (>60); EGFR Non-African American 93.2 (>60); Globulin 2.6 g/dL (2-4); Magnesium 1.7 mg/dL (1.9-2.7); Total Bilirubin 0.6 mg/dL (0.2-1.0); Total Protein 6.9 g/dL (6.4-8.9)
[2019-07-21] MEDS ORDERED: Magnesium Sulfate 2 GM IV* 2 GM/50 ML BAG IVPB ONE ×2 (18:06→18:13)
[2019-07-21 18:25] LABS: Urine Appearance Clear; Urine Bacteria Absent (Absent); Urine Bilirubin Negative (Negative); Urine Blood 1+ (Negative); Urine Color Straw; Urine Glucose Negative (Negative); Urine Ketones Negative (Negative); Urine Nitrite Negative (Negative); Urine Protein Negative (Negative); Urine Red Blood Cell Trace(0-2/hpf) (Absent); Urine Specific Gravity 1.002 (1.010-1.030); Urine Urobilinogen Negative (Negative); Urine White Blood Cell Absent (Absent)
[2019-07-21] MEDS ORDERED: MAGNESIUM SULFATE IV 1 GM - ED ONCE IVPB ONE (18:30)
[2019-07-21 19:56] LABS: TSH (Thyroid Stimulating Horm) 2.37 mcIU/mL (0.34-5.60)
[2019-07-21 20:03] VITALS: BP 146/83
== END 2019-07-21 20:03 | disposition home or self-care (01) ==
LOC: ED 17:12
DX: I48.91 Unspecified atrial fibrillation (principal); E83.42 Hypomagnesemia; J44.9 Chronic obstructive pulmonary disease, unspecified; K21.9 Gastro-esophageal reflux disease without esophagitis; Z98.51 Tubal ligation status; Z87.891 Personal history of nicotine dependence; Z79.82 Long term (current) use of aspirin; Z79.899 Other long term (current) drug therapy; Z88.1 Allergy status to other antibiotic agents; Z88.2 Allergy status to sulfonamides; Z88.8 Allergy status to other drugs, medicaments and biological substances
CPT/HCPCS: 36415; 71045; 80053; 81003; 81015; 83735; 83880; 84443; 84484; 85025; 85610; 93005; 96365; 96375; 99284; J3475; J3490

== ENCOUNTER 2019-08-14 16:03 | Inpatient (IN) | payer MEDICARE, BC ==
[2019-08-14] MEDS ORDERED: Adenosine* 3 MG/ML VIAL ONE (16:19)
--- NOTE | 2019-08-14 16:24 | ED ---
Palpitations / Dysrhythmia - HPI Summary HPI Summary: The patient is a 73 y/o F presenting to [facility] accompanied by son with a chief complaint of fast heart rate today. She reports that she has had supraventricular tachycardia before, and she feels dizzy as if she is going to have a near syncopal event. She denies any chest pain or shortness of breath. Currently, her symptoms are rated 0/10 in severity. There are no aggravating or alleviating factors. No treatment of the symptoms prior to arrival. [employer] is Dr. Thoams. PMHx: atrial fibrillation, SVT, HTN, GERD, hypomagnesemia, seizures. Former smoker, no EtOH, no substance use. Medications reviewed. Allergies noted. - History of Current Complaint Hx Obtained From: Patient Onset/Duration: Sudden Onset, Lasting Minutes, Still Present Timing: Intermittent Episodes Lasting: - minutes Severity Initially: Moderate Severity Currently: Moderate Character: Fast Aggravating: Nothing Alleviating: Nothing Associated Signs & Symptoms: Dizzy - near syncope - Allergy/Home Medications Allergies/Adverse Reactions: Allergies Allergy/AdvReac Type Severity Reaction Status Date / Time sulfamethoxazole Allergy Rash Verified 07/21/19 17:25 [From Bactrim] trimethoprim [From Bactrim] Allergy Rash Verified 07/21/19 17:25 varenicline [From Chantix] Allergy Rash Verified 07/21/19 17:25 POWDER IN ALL GLOVES Allergy Itching Uncoded 07/21/19 17:25 PMH/Surg Hx/FS Hx/Imm Hx Endocrine/Hematology History: Reports: Other Endocrine/Hematological Disorders - hypomagnesemia Denies: Hx Diabetes Cardiovascular History: Reports: Hx Atrial Fibrillation, Hx Hypertension, Other Cardiovascular Problems/Disorders - SVT Respiratory History: Reports: Hx Chronic Obstructive Pulmonary Disease (COPD) Denies: Hx Asthma GI History: Reports: Hx Gastroesophageal Reflux Disease - ON PRILOSEC FOR, Hx Hiatal Hernia Musculoskeletal History: Reports: Hx Arthritis - SPINE Sensory History: Reports: Hx Cataracts - BILATERAL, Hx Contacts or Glasses - GLASSES, Hx Hearing Aid - BILATERAL ONLY WEARS IN THE LEFT EAR Opthamlomology History: Reports: Hx Cataracts - BILATERAL, Hx Contacts or Glasses - GLASSES Neurological History: Reports: Hx Seizures - 3 SEIZURES- WHILE BEING SICK- 3 YEARS AGO - Surgical History Surgical History: Yes Surgery Procedure, Year, and Place: 1990- RIGHT LOWER LOBECTOMY. GALLBLADDER AND GALLSTONES REMOVED- 1992-[facility]. 1970- TUBAL LIGATION. ENDOSCOPIES Hx Anesthesia Reactions: Yes - [facility]- HAD A HARD TIME WAKING UP-1992 Infectious Disease History: No Infectious Disease History: Denies: Traveled Outside the [place] in Last 30 Days - Family History Known Family History: Positive: Hypertension - Social History Alcohol Use: None Hx Substance Use: No Substance Use Type: Reports: None Hx Tobacco Use: Yes Smoking Status (MU): Former Smoker Type: Cigarettes Amount Used/How Often: 1/2 PPD X 25 YEARS ON AND OFF Have You Smoked in the Last Year: Yes Review of Systems Positive: Palpitations - fast. Negative: Chest Pain Negative: Shortness Of Breath Neurological: Other - dizziness (near syncopal sensation) All Other Systems Reviewed And Are Negative: Yes Physical Exam - Summary Physical Exam Summary: VITAL SIGNS: Reviewed. Tachycardia. GENERAL: Patient is an elderly, fragile female who is lying comfortable in the stretcher although she appears anxious. Patient is not in any acute respiratory distress. HEAD AND FACE: No signs of trauma. No ecchymosis, hematomas or skull depressions. No sinus tenderness. EYES: PERRLA, EOMI x 2, No injected conjunctiva, no nystagmus. EARS: Hearing grossly intact. Ear canals and tympanic membranes are within normal limits. MOUTH: Oropharynx within normal limits. NECK: Supple, trachea is midline, no adenopathy, no JVD, no carotid bruit, no c- spine tenderness, neck with full ROM. CHEST: Symmetric, no tenderness at palpation. LUNGS: Clear to auscultation bilaterally. No wheezing or crackles. CVS: Tachycardic rate and rhythm, S1 and S2 present, no murmurs or gallops appreciated. ABDOMEN: Soft, non-tender. No signs of distention. No rebound, no guarding, and no masses palpated. Bowel sounds are normal. EXTREMITIES: FROM in all major joints, no edema, no cyanosis or clubbing. NEURO: Alert and oriented x 3. No acute neurological deficits. Speech is normal and follows commands. SKIN: Dry and warm. Triage Information Reviewed: Yes Vital Signs On Initial Exam: Initial Vitals Temp Pulse Resp BP Pulse Ox 97.7 F 183 18 105/91 95 08/14/19 16:12 08/14/19 16:12 08/14/19 16:12 08/14/19 16:12 08/14/19 16:12 Vital Signs Reviewed: Yes Procedures - Sedation Patient Received Moderate/Deep Sedation with Procedure: Yes Are You The Provider Who Administered The Sedation: Yes - Procedural Sedation/Analgesia Sedation Course: RT Present, Emergency Airway Equipment Available, Informed Consent Obtained, Time Out Completed, End-tidal Capnography Utilized Adverse Reactions Experienced by Patient: None Mallampati Classification: Class II ASA Classification: Class III: Severe Systemic Disease Pre-Procedural Heart: Other - tachycardia Pre-Procedural Heart Comment: Sustained SVT Pre-Procedural Lungs: Clear Auscultation Comment/Plan of Care: Fentanyl and Versed given for conscious sedation Provider Procedure Attestation: With My Signature Below, I Attest to have Personally Reviewed and Agree with the Pre-Sedation History and Pre-Service Assessment Update Cleared for Moderate Sedation: Yes Pre-Procedural Diagnosis: sustained SVT Post-Procedural Diagnosis: sustained SVT status post cardioversion Procedure: cardioversion Estimated Blood Loss: None Specimen(s): None Findings: None Implants/Tubes/Drains Placed: None - Additional Procedures Additional Procedures: cardioversion/defib - 50 J shocked once, successful Diagnostics - Vital Signs Vital Signs Temp Pulse Resp BP Pulse Ox 08/14/19 16:12 97.7 F 183 18 105/91 95 - Laboratory Result Diagrams: 08/14/19 16:44 08/14/19 16:44 Lab Statement: Any lab studies that have been ordered have been reviewed, and results considered in the medical decision making process. - EKG 1607 Cardiac Rate: Other Rate - 178 bpm EKG Rhythm: SVT Summary of EKG Findings: EKG at 1607 reveals SVT at 178 bpm. ED physician has reviewed and interpreted this EKG. 1626 Cardiac Rate: Other Rate - 178 bpm EKG Rhythm: SVT Summary of EKG Findings: EKG at 1626 reveals SVT at 178 bpm. ED physician has reviewed and interpreted this EKG. 1633 Cardiac Rate: Other Rate - 188 bpm EKG Rhythm: SVT Summary of EKG Findings: EKG at 1633 reveals SVT at 188 bpm. ED physician has reviewed and interpreted this EKG. 1659 Cardiac Rate: Other Rate - 138 bpm Summary of EKG Findings: EKG at 1659 reveals sinus arrhythmia at 138 bpm. Multiple PVCs. ED physician has reviewed and interpreted this EKG. 1710 Cardiac Rate: NL - 80 bpm EKG Rhythm: Sinus Rhythm Summary of EKG Findings: EKG at 1710 reveals sinus rhythm at 80 bpm. Multiple PVCs. ED physician has reviewed and interpreted this EKG. 1732 Cardiac Rate: Tachycardia - 122 bpm EKG Rhythm: Sinus Tachycardia Summary of EKG Findings: EKG at 1732 reveals sinus tachycardia at [address] elevations. No acute VT as read by the EKG machine. ED physician has reviewed and interpreted this EKG. Re-Evaluation - Re-Evaluation First Eval Re-Evaluation Time: 17:00 Change: Improved Comment: Cardioversion performed. Second Eval Re-Evaluation Time: 17:29 Change: Worse Comment: Patient is wheezing. We will order a breathing treatment. Course/Dx - Course Assessment/Plan: Patient is a 73 y/o F who has hx of SVT, HTN with chief complaint of fast heart rate today accompanied by dizziness without any chest pain or shortness of breath. The EKG shows that the patient is in SVT at 178 BPM. The patient is complaining of shortness of breath and palpitations. The patient reports that she is very anxious. She was placed on a quality assurance monitor body, two IV accesses were obtained. We tried multiple times to use vasovagal maneuvers that actually did decrease the heart rate, but it was never corrected. I explained to the patient the benefits and risks of given amiodarone as she understands and agrees. The patient reports that she has had multiple times in the past. She also reports that she has had cardioversion a couple times. I gave the patient Lopressor 2.5 mg with no change. Then, adenosine 6,12,12 and the heart rate decreased, however the heart rate went back up. It was noticed that she had a couple minutes of normal sinus rhythm and increased to sinus tachycardia and heart rate up to 180 bpm. I discussed case with Dr. Johnson from cardiology, and he recommends cardioversion. Therefore , I explained the benefits and risk of a cardioversion the patient and she understands and agrees. She reports that she has had cardioversions in the past. The patient was given Versed and fentanyl and the patient was given 50 J during the cardioversion and the patient now is in normal sinus tachycardia at [address] Johnson from contract manager recommends to give amiodarone 150 mg. He also recommends admission to the hospitalist, and he will consult for this patient in the morning. I did a new EKG which shows a sinus rhythm at 80 bpm at this time. The patient has also multiple PVCs. I discussed my physical exam and findings with Dr. Diaz from the hospital services course after the patient for admission. - Diagnoses Provider Diagnoses: SVT (supraventricular tachycardia) - Physician Notifications Discussed Care Of Patient With: Collin Johnson - cardiology Time Discussed With Above Provider: 16:40 Instructed by Provider To: Other - I discussed the patient's case with Dr. Johnson , and he agrees with cardioversion in the ED. I consulted him after cardioversion, and he recommends amiodarone and admission. He will consult for the patient tomorrow. At 1727, I discussed the patient's case with Dr. Diaz, hospitalist, and she agrees to admit the patient. She notes that the patient will be admitted to ICU. - Critical Care Time Critical Care Time: 75-104 min Discharge ED - Sign-Out/Discharge Documenting (check all that apply): Patient Departure - Patient accepted for admission by Dr. Diaz. - Discharge Plan Condition: Stable Disposition: ADMITTED TO [facility] - Billing Disposition and Condition Condition: STABLE Disposition: Admitted to [facility] - Attestation Statements Document Initiated by Epifanio: Yes Documenting Scribe: Maria C Marie Provider For Whom Epifanio is Documenting (Include Credential): Dr. James Howard MD Scribe Attestation: IMaria C scribed for Dr. James Howard MD on 08/14/19 at 1848. Scribe Documentation Reviewed: Yes Provider Attestation: The documentation as recorded by the Maria C ching accurately reflects the service I personally performed and the decisions made by me, Dr. James Howard MD Status of Epifanio Document: Viewed
[2019-08-14] MEDS ORDERED: Metoprolol Tartrate IV* 1 MG/ML 5 ML VIAL ONE (16:25)
[2019-08-14] MEDS: Adenosine* 3 MG/ML VIAL IV PUSH ONE ×2 (16:25→17:23)
[2019-08-14] MEDS ORDERED: NS 0.9% 1000 ML** 1,000 ML IV ONE (16:38)
[2019-08-14] MEDS ORDERED: Midazolam* 1 MG/ML 2 ML VIAL (2 MG) ONE ×2 (16:46→16:56)
[2019-08-14] MEDS ORDERED: fentaNYL* 50 MCG/ML 2 ML VIAL (100 MCG VIAL) ONE (16:46)
[2019-08-14] MEDS ORDERED: Midazolam* 1 MG/ML 5 ML VIAL (5 MG) IV SLOW PU ONE (16:49)
[2019-08-14] MEDS ORDERED: fentaNYL* 50 MCG/ML 2 ML VIAL (100 MCG VIAL) IV SLOW PU ONE (16:49)
[2019-08-14 16:51] LABS: ABS Basophils 0.1 10^3/ul (0-0.2); ABS Eosinophils 0.2 10^3/ul (0-0.6); ABS Lymphocytes 2.6 10^3/ul (1.0-4.8); ABS Monocytes 0.8 10^3/ul (0-0.8); ABS Neutrophils 6.3 10^3/ul (1.5-7.7); Eosinophil % 1.7 %; Hematocrit 42 % (35-47); Hemoglobin 13.9 g/dL (12.0-16.0); Lymphocyte % 26.3 %; Mean Corpuscular HGB Conc 34 g/dL (31-36); Mean Corpuscular Hemoglobin 30 pg (27-31); Mean Corpuscular Volume 90 fL (80-97); Mean Platelet Volume 6.9 fL (7.4-10.4); Platelet Count 361 10^3/uL (150-450); Red Blood Count 4.63 10^6 /uL (3.70-4.87); Red Cell Distribution Width 13 % (10-15); White Blood Count 10.1 10^3/uL (3.5-10.8)
[2019-08-14] MEDS ORDERED: Metoprolol Tartrate IV* 1 MG/ML 5 ML VIAL IV ONE (16:51)
--- OUTSIDE RECORDS SUMMARY | 2019-08-14 16:53 | XMS REPORT | Continuity of Care Document ---
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 Problems Description No Information Available Social History Type Date Description Comments Sex Unknown Tobacco Use Start: Unknown End: Former Cigarette Smoker 1/2 PPD for 25 Unknown years on and off Smoking Status Reviewed: 07/14/19 Former Cigarette Smoker 1/2 PPD for 25 years on and off ETOH Use Denies alcohol use Tobacco Use Start: Unknown End: Patient is a former Unknown smoker Recreational Drug Use Never Used Drugs Exercise Type/Frequency Exercises sporadically Allergies, Adverse Reactions, Alerts Active Allergies Reaction Severity Comments Date Bactrim 08/24/2013 Metoprolol fatigue 03/04/2019 Atenolol fatigue 07/14/2019 Cartia fatigue, could not tolerate 07/14/2019 Medications Active Medications SIG Qnty Indications Ordering Date Provider Icaps MV 1 by mouth every Papo Thomas, 07/14/2019 Tablets day DO FACC Metoprolol Succinate 1 /2 by mouth 90tabs Papo Thomas, 07/07/2019 ER every day before DO FACC 25mg Tablets ER 24HR bedtime Proair HFA 2 puffs every 4 Unknown 108(90Base) hours as needed mcg/Act Aerosol Nicotrol 1 cartridges every Unknown 10mg Inhaler 2 hours as needed SM Magnesium Oxide 2 tab by mouth 90tabs Unknown every day 250mg Tablets Icaps Plus 2 tabs daily Unknown Tablets Fluticasone 2 sprays each Unknown Propionate nostril daily as 50mcg/Act needed Suspension Cetirizine HCL 1 by mouth every Unknown 10mg day Tablets Aspirin 81 Low Dose 1 by mouth every Unknown day 81mg Chewtabs Tylenol Extra 1-2 tabs by mouth Unknown Strength every 6 hours as 500mg Tablets needed Lansoprazole 1 by mouth twice Unknown 30mg every day Capsules DR Escobar For Her 50+ 1 po qd Unknown Capsules Ventolin HFA Andrea uS MD 108(90Base) mcg/Act Aerosol Combivent Respimat Andrea Su MD 20-100mcg/Act Aerosol History Medications Amiodarone HCL 1 by mouth 30tabs Papo Thomas, 07/06/2019 - 400mg every day DO [facility] 07/07/2019 Tablets Cartia XT 1 by mouth 30caps Papo Thomas, 07/05/2019 - 180mg Caps every day DO [facility] 07/06/2019 ER 24HR Atenolol 1 by mouth 90tabs I47.1 Papo Thomas, 06/27/2019 - 25mg Tablets every day DO [facility] 07/05/2019 Magnesium Gluconate 1 by mouth Papo Thomas, 03/04/2019 - every day DO [facility] 03/03/2019 500mg Tablets Magnesium 1/2 tab po once Papo Thomas, 03/04/2019 - 500mg daily DO [facility] 07/14/2019 Capsules Atenolol 1/2 by mouth 90tabs I47.1 Papo Thomas, 03/04/2019 - 50mg Tablets every day DO [facility] 06/27/2019 Immunizations Description No Information Available Vital Signs Date Vital Result Comment 07/14/2019 4:01pm Height 62 inches 5'2" Weight 115.00 lb with shoes Heart Rate 67 /min Irregular BP Systolic Sitting 112 mmHg Lue BP Diastolic Sitting 70 mmHg Lue BP Systolic Standing 110 mmHg Lue BP Diastolic Standing 82 mmHg Lue BMI (Body Mass Index) 21.0 kg/m2 Ejection Fraction 50-55% Echo 02/16/19 03/04/2019 3:37pm Height 62 inches 5'2" Weight 112.00 lb no shoes Heart Rate 76 /min BP Systolic Sitting 128 mmHg lue reg cuff BP Diastolic Sitting 70 mmHg lue reg cuff BP Systolic Standing 124 mmHg lue reg cuff BP Diastolic Standing 70 mmHg lue reg cuff Respiratory Rate 12 /min BMI (Body Mass Index) 20.5 kg/m2 Ejection Fraction 50-55% echo.02/16/19 Results Description No Information Available Procedures Date Code Description Status 07/14/2019 81095 EKG Tracing & Interpretation Completed 06/27/2019 98005 Holter Monitor Review (24 hr)dr review & interp only Completed 06/23/2019 48698 ECG Monitor/Recording W/Visual Superimposition Scanning Completed 03/04/2019 18478 EKG Tracing & Interpretation Completed 02/16/2019 05138 ECHO Transthorasic Realtime 2D W Doppler & Color Flow Hosp Completed 02/16/2019 09125 EKG, Interpretation Only Completed Medical Devices Description No Information Available Encounters Type Date Location Provider Dx Diagnosis Office Visit 07/14/2019 [facility] Papo Sorenson I47.1 Supraventricular 3:40p Of Nilo Gonzalezno, DO FACC tachycardia F17.201 Nicotine dependence, unspecified, in remission J44.9 Chronic obstructive pulmonary disease, unspecified Office Visit 03/04/2019 [facility] Papo Sorenson I47.1 Supraventricular 3:40p Cardiology Of Thomas, DO tachycardia 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 gastroenteritis and Hospitalists colitis, unspecified E86.0 Dehydration Office Visit 02/15/2019 [facility] A41.9 Sepsis, 10:44a Assocóscar PA unspecified Hospitalists organism R55 Syncope and collapse R00.0 Tachycardia, unspecified Assessments Date Code Description Provider 07/14/2019 I47.1 Supraventricular tachycardia Papo Yas Thomas, DO FACC 07/14/2019 F17.201 Nicotine dependence, unspecified, in Papo SGab Thomas, DO FACC remission 07/14/2019 J44.9 Chronic obstructive pulmonary Papo Thomas, DO [facility] disease, unspecified 06/27/2019 I47.1 Supraventricular tachycardia Papo Thomas, DO [facility] 06/23/2019 I47.1 Supraventricular tachycardia Nurse Visit IC 03/04/2019 I47.1 Supraventricular tachycardia Papo Thomas, DO [facility] 03/04/2019 F17.201 Nicotine dependence, unspecified, in Papo Thomas, DO [facility] remission 03/04/2019 J44.9 Chronic obstructive pulmonary Papo Thomas, DO FAC disease, unspecified 02/27/2019 I47.1 Supraventricular tachycardia Papo Thomas, DO [facility] 02/17/2019 K52.9 Noninfective gastroenteritis and Anant Gallagher M.D. colitis, unspecified 02/17/2019 I95.9 Hypotension, unspecified Anant Gallagher M.D. 02/16/2019 R00.0 Tachycardia, unspecified Mahad Vale M.D., [facility], [facility] 02/16/2019 K52.9 Noninfective gastroenteritis and Anant Gallagher M.D. colitis, unspecified 02/16/2019 E86.0 Dehydration Anant Gallagher M.D. 02/16/2019 R55 Syncope and collapse Briana Tamayo M.D. 02/15/2019 A41.9 Sepsis, unspecified organism REGGIE Hall 02/15/2019 R55 Syncope and collapse [facility] 02/15/2019 R00.0 Tachycardia, unspecified REGGIE Hall Plan of Treatment 07/14/2019 - Papo Thomas, DO FACCI47.1 Supraventricular tachycardiaFollow up :1 yearF17.201 Nicotine dependence, unspecified, in nuvwzisrzR76.9 Chronic obstructive pulmonary disease, unspecified Functional Status Description No Information Available Mental Status Description No Information Available Referrals Refer to Reason for Referral Status Appt Date Owen Canela MD atrial tachycardia management, difficulty Sent 2018 tolerating medications 1 [place] [phone] [phone] Omar Pozo MD consider atrial tachycardia ablation Sent [address] [place] [address] [phone]
--- OUTSIDE RECORDS SUMMARY | 2019-08-14 16:53 | XMS REPORT | Continuity of Care Document ---
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 No Information Available Social History [...] po qd Unknown Capsules Ventolin HFA Andrea Su MD 108(90Base) mcg/Act Aerosol Combivent Respimat Andrea Su MD 20-100mcg/Act Aerosol History Medications Amiodarone HCL 1 by mouth 30tabs Papo Thomas, 07/06/2019 - 400mg every day DO [facility] 07/07/2019 Tablets Cartia XT 1 by mouth 30caps Papo Thomas, 07/05/2019 - 180mg Caps every day DO [facility] 07/06/2019 ER 24HR Atenolol 1 by mouth 90tabs I47.1 Papo Thomas, 06/27/2019 - 25mg Tablets every day DO [facility] 07/05/2019 Magnesium Gluconate 1 by mouth Papo Thomas, 03/04/2019 - every day DO [facility] 03/03/2019 500mg Tablets Magnesium 1/2 tab po once Papo Thomas, 03/04/2019 - 500mg daily DO [facility] 07/14/2019 Capsules Atenolol 1/2 by mouth 90tabs I47.1 Papo Thomas, 03/04/2019 - 50mg Tablets every day DO [facility] 06/27/2019 Immunizations Description No Information Available Vital [...] Available Procedures Date Code Description Status 07/14/2019 73925 EKG Tracing & Interpretation Completed 06/27/2019 45781 Holter Monitor Review (24 hr)dr review & interp only Completed 06/23/2019 64972 ECG Monitor/Recording W/Visual Superimposition Scanning Completed 03/04/2019 00335 EKG Tracing & Interpretation Completed 02/16/2019 83849 ECHO Transthorasic Realtime 2D W Doppler & Color Flow Hosp Completed 02/16/2019 38178 EKG, Interpretation Only Completed Medical Devices Description No Information Available Encounters Type Date Location Provider Dx Diagnosis Office Visit 07/14/2019 [facility] Papo Sorenson I47.1 Supraventricular 3:40p Of Nilo Gonzalezno, DO FACC tachycardia F17.201 Nicotine dependence, unspecified, in remission J44.9 Chronic obstructive pulmonary disease, unspecified Office Visit 03/04/2019 [facility] Papo Sorenson I47.1 Supraventricular 3:40p Cardiology Of Thomas, DO tachycardia 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 gastroenteritis and Hospitalists colitis, unspecified E86.0 Dehydration Office Visit 02/15/2019 [facility] A41.9 Sepsis, 10:44a Assocóscar PA unspecified Hospitalists organism R55 Syncope and collapse R00.0 Tachycardia, unspecified Assessments Date Code Description Provider 07/14/2019 I47.1 Supraventricular tachycardia Papo Yas Thomas, DO FACC 07/14/2019 F17.201 Nicotine dependence, unspecified, in Papo SGab Thomas, DO FACC remission 07/14/2019 J44.9 Chronic obstructive pulmonary Papo Thomas, DO [facility] disease, unspecified 06/27/2019 I47.1 Supraventricular tachycardia Papo Thomas, DO [facility] 06/23/2019 I47.1 Supraventricular tachycardia Nurse Visit IC 03/04/2019 I47.1 Supraventricular tachycardia Papo Thomas, DO [facility] 03/04/2019 F17.201 Nicotine dependence, unspecified, in Papo Thomas, DO [facility] remission 03/04/2019 J44.9 Chronic obstructive pulmonary Papo Thomas, DO FAC disease, unspecified 02/27/2019 I47.1 Supraventricular tachycardia Papo Thomas, DO [facility] 02/17/2019 K52.9 Noninfective gastroenteritis and Anant Gallagher M.D. colitis, unspecified 02/17/2019 I95.9 Hypotension, unspecified Anant Gallagher M.D. 02/16/2019 R00.0 Tachycardia, unspecified Mahad Vale M.D., [facility], [facility] 02/16/2019 K52.9 Noninfective gastroenteritis and Anant Gallagher M.D. colitis, unspecified 02/16/2019 E86.0 Dehydration Anant Gallagher M.D. 02/16/2019 R55 Syncope and collapse Briana Tamayo M.D. 02/15/2019 A41.9 Sepsis, unspecified organism RE[facility] Hall 02/15/2019 R55 Syncope and collapse REGGIE Hall 02/15/2019 R00.0 Tachycardia, unspecified REGGIE Hall Plan of Treatment 07/14/2019 - Papo Thomas, DO FACCI47.1 Supraventricular tachycardiaFollow up :1 yearF17.201 Nicotine dependence, unspecified, in wgmolbmmjQ80.9 Chronic obstructive pulmonary disease, unspecified Functional Status Description No Information Available Mental Status Description No Information Available Referrals Refer to Reason for Referral Status Appt Date Owen Canela MD atrial tachycardia management, difficulty Sent 2018 tolerating medications 1 [place] [phone] Omar Pozo MD consider atrial tachycardia ablation Sent [address] [place] [address] [phone]
--- OUTSIDE RECORDS SUMMARY | 2019-08-14 16:53 | XMS REPORT | Summary of Care ---
:1945 Author Organization [facility] Address [address] [place] [address] Care Team Providers Name Role Phone Andrea Su MD Primary Care Provider Bernabe Higginbotham MD Unavailable Reason for Visit Reason Comments Check Up patient is here to f/u on low magnesium and high BP. Encounter Details Date Type Department Care Team Description 07/27/2019 Office Visit [facility] Rosa Barlow, Hyponatremia ( Primary Dx); Practice [facility] Hypomagnesemia; [address] Essential hypertension; [place] [address] [place] [address] Atrial tachycardia ([facility]) [phone] Allergies No Known Allergiesdocumented as of this encounter (statuses as of 07/27/2019) Medications Medication Sig Dispensed Refills Start Date [...] hours SolnIndications: Pulmonary emphysema, unspecified emphysema type (HCC) COMBIVENT RESPIMAT inhale 1 puff by 12 g 3 03/07/2019 Active 20-100 MCG/ACT mouth four times Inhalation Aero a day SolnIndications: COPD (chronic obstructive pulmonary disease) ([facility]) fluticasone (FLONASE) [place] 2 Sprays in 1 Each 2 05/30/2019 Active 50 MCG/ACT Nasal nose DAILY. Suspension magnesium oxide 500 MG Take 250 mg by 0 Active Oral Tab mouth DAILY. Tiotropium Zillah Take 2 INHL by 1 Inhaler 5 [...] Chronic obstructive pulmonary disease with acute exacerbation ([facility]) NICOTROL 10 MG use as directed 168 [...] as of this encounter (statuses as of 07/27/2019) Active Problems Problem Noted Date Atrial tachycardia [...] as of this encounter (statuses as of 07/27/2019) Resolved Problems Problem Noted Date Resolved Date Tobacco abuse 08/24/2008 04/14/2019 Overview: Began age 17, 1 packs per day Quit 11/17, reastarted 03/17 documented as of this encounter (statuses as of 07/27/2019) Immunizations Name Administration Dates Next Due Influenza [...] Sign Reading Time Taken Comments Blood Pressure 136/80 07/27/2019 11:27 AM EDT Pulse - - Temperature 37.3 07/27/2019 11:04 AM EDT C (99.2 F) Respiratory Rate - - Oxygen Saturation - - Inhaled Oxygen Concentration - - Weight 51.7 kg (114 lb) 07/27/2019 11:04 AM EDT Height 157.5 cm (5' 2") 07/27/2019 11:04 AM EDT Body Mass Index 20.85 07/27/2019 11:04 AM EDT documented in this encounter Patient Instructions Patient InstructionsRosa Barlow FNP - 07/27/2019 11:00 AM EDTLabs today Diet as tolerated Try Celexa at bedtime Schedule follow up with Dr Su documented in this encounter Progress Notes Rosa Barlow FNP - 07/27/2019 11:00 AM EDT PATIENT: Jaqueline Mack : 1945 DATE OF SERVICE: 07/27/2019 CHIEF COMPLAINT: Chief Complaint Patient presents with Check Up patient is here to f/u on low magnesium and high BP. Subjective HISTORY OF PRESENT ILLNESS: Jaqueline Mack is a 73-y.o. female. HPI Pt seen in [facility] ER 07/21/19 with palpitations and HTN. ER reports reviewed - pt found to be in A Fib off and on - had recently decreased meds per cardiology. Was also found to be low on Na+, Cl and Mg. Was given Magnesium supplement IV and is now taking oralmagnesium. Here for follow up, no palpitations today. 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 fluticasone (FLOVENT [...] puff by mouth every 4 hours Tiotropium Zillah Monohydrate 2.5 MCG/ACT Inhalation Aero Soln Take [...] Last attempt to quit: 11/09/2017 Years since quittin.7 Smokeless tobacco: Never Used Substance and Sexual Activity Alcohol use: No Alcohol/week: 0.0 standard drinks Drug use: No Sexual activity: Yes Partners: Male Lifestyle Physical activity: Days per week: Not on file Minutes per session: Not on file Stress: Not on file Relationships Social connections: Talks on phone: Not on file Gets together: Not on file Attends islam service: Not on file Active member of [...] Concern No Social History Narrative Lives in [facility], spends winter in [place] smokes REVIEW OF SYSTEMS: Review of Systems Constitutional: Positive for malaise/fatigue. Negative for chills and fever. Respiratory: Negative for shortness of breath. Cardiovascular: Negative for chest pain, palpitations and leg swelling. Gastrointestinal: Positive for diarrhea and nausea. Negative for abdominal pain. Musculoskeletal: Negative for falls. Neurological: Negative for dizziness and headaches. Objective PHYSICAL EXAM: VITALS: BP 136/80 (BP Location: Left arm, Patient Position: Sitting) | Temp 99.2 F (37.3 C) | Ht 5' 2" (1.575 m) | Wt 114 lb (51.7 kg) | BMI 20.85 kg/m Body mass index is 20.85 kg/m. Physical Exam Constitutional: She is oriented to person, place, and time. Vital signs are normal. She appears well-developed. frail HENT: Head: Normocephalic and atraumatic. Eyes: Pupils are equal, round, and reactive to light. Neck: Normal range of motion. No JVD present. No thyromegaly present. Cardiovascular: Normal rate and regular rhythm. Pulmonary/Chest: Effort normal and breath sounds normal. Lymphadenopathy: She has no cervical adenopathy. Neurological: She is alert and oriented to person, place, and time. No cranial nerve deficit or sensory deficit. Coordination and gait normal. Skin: Skin is warm and dry. No cyanosis. Vitals reviewed. ASSESSMENT / IMPRESSION: ICD-9-CM ICD-10-CM 1. Hyponatremia 276.1 E87.1 ELECTROLYTES ELECTROLYTES 2. Hypomagnesemia 275.2 E83.42 MAGNESIUM LEVEL MAGNESIUM LEVEL 3. Essential hypertension 401.9 I10 4. Atrial tachycardia (HCC) 427.89 I47.1 Plan Labs today Diet as tolerated Try Celexa at bedtime Schedule follow up with Dr Su Author: NICKY Campbell 07/27/2019 11:41 documented in this encounter Plan of Treatment Date Type Specialty Care Team Description 08/09/2019 Office Visit Family Practice Andrea Su MD [address] [place] [address] [phone] Name Type Priority Associated Diagnoses Date/Time ELECTROLYTES Lab Routine Hyponatremia 07/27/2019 11:38 AM EDT MAGNESIUM LEVEL Lab Routine Hypomagnesemia 07/27/2019 11:38 AM EDT Name Type Priority Associated Diagnoses Order Schedule ELECTROLYTES Lab Routine Hyponatremia Expected: 07/27/2019 (Approximate), Expires: 07/27/2020 MAGNESIUM LEVEL Lab Routine Hypomagnesemia Expected: 07/27/2019 (Approximate), Expires: 07/27/2020 Health Maintenance Due Date Last Done Comments [...] SCREENING 04/14/2020 04/14/2019, 05/13/2018 LIPID DISORDER SCREENING 07/21/2020 07/21/2019, 05/13/2018, 03/17/2017, Additional history exists OSTEOPOROSIS SCREENING 08/05/2023 08/05/2013 [...] Author Type Problems Progress Smoking COPD No Yen, NICKY Edwards Note: This is an individualized treatment (COPD) [...] to eventually stop. 4. Connect to behavior counseling-[facility] Quit lines ([phone] or [facility]- [phone]), stop smoking groups-[facility] or Keep a regular sleep schedule Lifestyle No Rosa Barlow FNP Note: This is an individualized lifestyle goal for Jaqueline E Frederick: Please maintain a regular sleep schedule. [...] filedocumented in this encounter Visit Diagnoses Diagnosis Hyponatremia - Primary Hyposmolality and/or hyponatremia Hypomagnesemia Disorders of magnesium metabolism Essential hypertension Unspecified essential hypertension Atrial tachycardia (HCC) Other specified cardiac dysrhythmias documented in this encounter Insurance Payer Benefit Plan / Subscriber ID Effective Dates Phone Address Type Group MEDICARE MEDICARE PART A & B xxxxxxxxxxx 1993-Present Medicare U[employer] E[employer]IRE [employer]AN xxxxxxxxx 2016-Present Shushan Guarantor Name Account Type Relation to Date of Phone Billing Patient Address Melissa Mackalbertina Campos Personal/Family 1945 [address] (Home) [place], [place] [phone] (Work) documented as of this encounter
--- OUTSIDE RECORDS SUMMARY | 2019-08-14 16:53 | XMS REPORT | Continuity of Care Document ---
:1945 External Reference #:[id number] Author Name Candie Sethi Care Team Providers Name Role Phone Andrea Su MD - Family Medicine Care Team Information Leach Runner [phone] Problems Description No Information Available Social History [...] Thomas, 07/06/2019 - 400mg every day DO [facility] 07/07/2019 Tablets Cartia XT 1 by mouth 30caps Papo Thomas, 07/05/2019 - 180mg Caps every day DO [facility] 07/06/2019 ER 24HR Atenolol 1 by mouth 90tabs I47.1 Papo Thomas, 06/27/2019 - 25mg Tablets every day DO [facility] 07/05/2019 Magnesium Gluconate 1 by mouth Papo Thomas, 03/04/2019 - every day DO [facility] 03/03/2019 500mg Tablets Magnesium 1/2 tab po once Papo Thomas, 03/04/2019 - 500mg daily DO [facility] 07/14/2019 Capsules Atenolol 1/2 by mouth 90tabs I47.1 Papo Thomas, 03/04/2019 - 50mg Tablets every day DO [facility] 06/27/2019 Immunizations Description No Information Available [...] Available Procedures Date Code Description Status 07/14/2019 22136 EKG Tracing & Interpretation Completed 06/27/2019 32672 Holter Monitor Review (24 hr)dr review & interp only Completed 06/23/2019 71081 ECG Monitor/Recording W/Visual Superimposition Scanning Completed 03/04/2019 41389 EKG Tracing & Interpretation Completed 02/16/2019 82158 ECHO Transthorasic Realtime 2D W Doppler & Color Flow Hosp Completed 02/16/2019 46917 EKG, Interpretation Only Completed Medical Devices Description No Information Available Encounters Type Date Location Provider Dx Diagnosis Office Visit 07/14/2019 [facility] Papo Sorenson I47.1 Supraventricular 3:40p Of Nilo Gonzalezno, DO FACC tachycardia F17.201 Nicotine dependence, unspecified, in remission J44.9 Chronic obstructive pulmonary disease, unspecified Office Visit 03/04/2019 [facility] Papo Sorenson I47.1 Supraventricular 3:40p [facility] Of Thomas, DO tachycardia Child Advocate FACC F17.201 Nicotine dependence, unspecified, in remission J44.9 Chronic obstructive pulmonary disease, unspecified Office Visit 02/27/2019 [facility] Papo Sorenson I47.1 Supraventricular 3:53p Of Child Advocate Thomas, DO tachycardia FACC Office Visit 02/17/2019 [facility] K52.9 Noninfective 10:46a Assocóscar gastroenteritis and Hospitalists M.DGab colitis, unspecified I95.9 Hypotension, unspecified Office 02/16/2019 [facility] K52.9 Noninfective Visit 10:46a Assocóscar M.D. gastroenteritis and Hospitalists colitis, unspecified E86.0 Dehydration Office Visit 02/15/2019 [facility] A41.9 Sepsis, 10:44a Assocóscar PA unspecified Hospitalists organism R55 Syncope and collapse R00.0 Tachycardia, unspecified Assessments Date Code Description Provider 07/14/2019 I47.1 Supraventricular tachycardia Papo Yas Thomas, DO FACC 07/14/2019 F17.201 Nicotine dependence, unspecified, in Papo SGab Thomas, DO FACC remission 07/14/2019 J44.9 Chronic obstructive pulmonary Papo Thomas, DO [facility] disease, unspecified 06/27/2019 I47.1 Supraventricular tachycardia Papo Thomas, DO [facility] 06/23/2019 I47.1 Supraventricular tachycardia Nurse Visit IC 03/04/2019 I47.1 Supraventricular tachycardia Papo Thomas, DO [facility] 03/04/2019 F17.201 Nicotine dependence, unspecified, in Papo Thomas, DO [facility] remission 03/04/2019 J44.9 Chronic obstructive pulmonary Papo Thomas, DO FAC disease, unspecified 02/27/2019 I47.1 Supraventricular tachycardia Papo Thomas, DO [facility] 02/17/2019 K52.9 Noninfective gastroenteritis and Anant Gallagher M.D. colitis, unspecified 02/17/2019 I95.9 Hypotension, unspecified Anant Gallagher M.D. 02/16/2019 R00.0 Tachycardia, unspecified Mahad Vale M.D., [facility], [facility] 02/16/2019 K52.9 Noninfective gastroenteritis and Anant Gallagher M.D. colitis, unspecified 02/16/2019 E86.0 Dehydration Anant Gallagher M.D. 02/16/2019 R55 Syncope and collapse Briana Tamayo M.D. 02/15/2019 A41.9 Sepsis, unspecified organism REGGIE Hall 02/15/2019 R55 Syncope and collapse REGGIE Hall 02/15/2019 R00.0 Tachycardia, unspecified REGGIE Hall Plan of Treatment 07/14/2019 - Papo Thomas, DO FACCI47.1 Supraventricular tachycardiaFollow up :1 yearF17.201 Nicotine dependence, unspecified, in lbadlusjdJ70.9 Chronic obstructive pulmonary disease, unspecified Functional Status Description No Information Available Mental Status Description No Information Available Referrals Refer to Reason for Referral Status Appt Date wOen Canela MD atrial tachycardia management, difficulty Sent 2018 tolerating medications [address] [id number] [phone] Omar Pozo MD consider atrial tachycardia ablation Sent [address] [place] [address] [phone]
--- OUTSIDE RECORDS SUMMARY | 2019-08-14 16:53 | XMS REPORT | Summary of Care ---
:[address] [facility] Address [address] [address] Care Team Providers Name Role Phone Andrea Su Primary Care Provider Bernabe Higginbotham MD Unavailable Reason for Visit Reason Comments Hypertension pt presents for follow up with HTN Encounter Details Date Type Department Care Team Description 08/09/2019 Office Visit [facility] Andrea Su MD Atrial tachycardia (HCC) (Primary Dx); Practice [address] Essential hypertension; [address] [place] [address] Pulmonary emphysema, unspecified emphysema type (HCC); [place] [address] Reactive depression; [phone] Hypomagnesemia; Functional diarrhea Allergies No Known Allergiesdocumented as of this encounter (statuses as of 08/09/2019) Medications Medication Sig Dispensed Refills Start Date End Date Status Multiple Vitamin Take by mouth 0 Active (MULTI-VITAMIN PO) DAILY. aspirin (ECOTRIN) 81 Take 81 mg by 0 Active MG Oral Tab EC mouth DAILY. Multiple Take 2 Caps by 0 Active Vitamins-Minerals mouth DAILY. (ICAPS PO) Lansoprazole 30 MG take 1 capsule 180 Cap 1 02/09/2019 Active Oral CAPSULE DELAYED by mouth twice RELEASE a day COMBIVENT RESPIMAT inhale 1 puff 12 g 3 03/07/2019 Active 20-100 MCG/ACT by mouth four Inhalation Aero times a day SolnIndications: COPD (chronic obstructive pulmonary disease) ([facility]) fluticasone Fischer 2 Sprays 1 Each 2 05/30/2019 Active (FLONASE) 50 MCG/ACT in nose DAILY. Nasal Suspension magnesium oxide 500 Take 250 mg by 0 Active MG Oral Tab mouth DAILY. Tiotropium [place] Take 2 INHL by 1 Inhaler 5 [...] obstructive pulmonary disease with acute exacerbation (HCC) NICOTROL 10 MG use as directed 168 Each 3 07/13/2019 Active Inhalation 1-2 TIMES PER InhalerIndications: DAY Tobacco abuse albuterol HFA inhale 2 puffs 25.5 g 1 08/01/2019 Active (VENTOLIN) 108 (90 by mouth every Base) MCG/ACT 4 hours Inhalation Aero SolnIndications: Pulmonary emphysema, unspecified emphysema type (HCC) Levocetirizine Take 1 Tab by 90 Tab 1 08/03/2019 Active Dihydrochloride 5 MG mouth DAILY. Oral TabIndications: Seasonal allergies Magnesium Gluconate Take 1 Tab by 30 Tab 5 08/09/2019 Active 250 MG Oral Tab mouth DAILY. mirtazapine Take 1 Tab by 30 Tab 1 08/09/2019 Active (REMERON) 15 MG Oral mouth EVERY Tab BEDTIME. Cetirizine HCl 10 MG Take 1 Tab by 30 Tab 0 04/30/2017 Discontinued Oral TABLET mouth DAILY. 9 DISPERSIBLEIndicatio ns: Rhinitis, unspecified type citalopram (CELEXA) Take 1 Tab by 90 Tab 0 07/18/2019 Discontinued 10 MG Oral mouth DAILY. 9 TabIndications: Anxiety and depression documented as of this encounter (statuses as of 08/09/2019) Active Problems Problem Noted Date Atrial tachycardia [...] as of this encounter (statuses as of 08/09/2019) Resolved Problems Problem Noted Date Resolved Date Tobacco abuse 08/24/2008 04/14/2019 Overview: Began age 17, 1 packs per day Quit 11/17, reastarted 03/17 documented as of this encounter (statuses as of 08/09/2019) Immunizations Name Administration Dates Next Due Influenza (IM) Preservative Free 07/19/2013 Influenza Vaccine 65 Yrs + 08/09/2019 Influenza Vaccine High Dose 08/06/2018, 07/19/2014, 08/15/2007 [...] Sign Reading Time Taken Comments Blood Pressure 138/68 08/09/2019 2:46 PM EDT Pulse 79 08/09/2019 2:46 PM EDT Temperature 37 08/09/2019 3:21 PM EDT C (98.6 F) Respiratory Rate - - Oxygen Saturation 98% 08/09/2019 2:46 PM EDT Inhaled Oxygen Concentration - - Weight 51.7 kg (114 lb) 08/09/2019 2:46 PM EDT Height 157.5 cm (5' 2") 08/09/2019 2:46 PM EDT Body Mass Index 20.85 08/09/2019 2:46 PM EDT documented in this encounter Progress Notes Andrea Su MD - 08/09/2019 2:40 PM EDT PATIENT: Jaqueline Mack : 1945 DATE OF SERVICE: 08/09/2019 CHIEF COMPLAINT: Chief Complaint Patient presents with Hypertension pt presents for follow up with HTN Subjective HISTORY OF PRESENT ILLNESS: Jaqueline Mack is a 73-y.o. female. In for follow up of hypertension. She has been having Issues BP and with pulse and afib , not finding the right meds that agree with her. She feels dizzy or has palpitations with almost everythingtried . She is ticking with the 1/2 metoprolol and is "OK" . The palpitations are brief She is also having issues with diarrhea. She is blaming it on the magnesium she has to take as she tends to be low Mag which of course can affect her rhythm She has yet to find a good antidepressant. She tends to stop them without even trying due to possible side effects. her appetite is poor, sleep +/- When she stopped celexa recently her nausea went away . 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 albuterol HFA (VENTOLIN) 108 (90 Base) MCG/ACT Inhalation Aero Soln inhale 2 puffs by mouth every 4 hours aspirin (ECOTRIN) 81 MG Oral Tab EC Take 81 mg by mouth DAILY. COMBIVENT RESPIMAT 20-100 MCG/ACT Inhalation Aero Soln inhale 1 puff by mouth four times a day fluticasone (FLONASE) 50 MCG/ACT Nasal Suspension Fischer 2 Sprays in nose DAILY. fluticasone (FLOVENT HFA) 110 MCG/ACT Inhalation Aerosol Take 2 Puffs by inhalation TWICE DAILY. Lansoprazole 30 MG Oral CAPSULE DELAYED RELEASE take 1 capsule by mouth twice a day Levocetirizine Dihydrochloride 5 MG Oral Tab Take 1 Tab by mouth DAILY. Magnesium Gluconate 250 MG Oral Tab Take 1 Tab by mouth DAILY. magnesium oxide 500 MG Oral Tab Take 250 mg by mouth DAILY. metoprolol tartrate (LOPRESSOR) 25 mg Take 25 mg by mouth DAILY. mirtazapine (REMERON) 15 MG Oral Tab Take 1 Tab by mouth EVERY BEDTIME. Multiple Vitamin (MULTI-VITAMIN PO) Take by mouth DAILY. Multiple Vitamins-Minerals (ICAPS PO) Take 2 Caps by mouth DAILY. NICOTROL 10 MG Inhalation Inhaler use as directed 1-2 TIMES PER DAY Tiotropium [place] Monohydrate 2.5 MCG/ACT Inhalation Aero Soln Take [...] file Gets together: Not on file Attends spiritism service: Not on file Active member of [...] Concern No Social History Narrative Lives in [facility], spends winter in [place] smokes REVIEW OF SYSTEMS: ROS Objective PHYSICAL EXAM: VITALS: BP 138/68 (BP Location: Left arm, Patient Position: Sitting) | Pulse 79 | Temp 98.6 F(37 C) | Ht 5' 2" (1.575 m) | Wt 114 lb (51.7 kg) | SpO2 98% | BMI 20.85 kg/m Body massindex is 20.85 kg/m. Physical Exam Vitals signs reviewed. Constitutional: General: She is not in acute distress. Cardiovascular: Rate and Rhythm: Normal rate and regular rhythm. Pulmonary: Effort: Pulmonary effort is normal. No respiratory distress. Breath sounds: Wheezing present. Abdominal: General: There is no distension. Palpations: Abdomen is soft. Musculoskeletal: Right lower leg: No edema. Left lower leg: No edema. Psychiatric: Comments: Dress and hygiene good Good eye contact Thoughts and speech normal Affect Appropriate Mood normal ASSESSMENT / IMPRESSION: ICD-9-CM ICD-10-CM 1. Atrial tachycardia (HCC) she is probably as good as she is going to get Some of her feelings of palpitations brief and dizziness not severe enough to outweight having high BP and rapid afib 427.89I47.1 2. Essential hypertension 401.9 I10 3. Pulmonary emphysema, unspecified emphysema type (HCC) 492.8 J43.9 4. Reactive depression try remeron because it can help her appetite and follow up 1 month 300.4 F32.9 5. Hypomagnesemia switch to mag gluconate maybe less diarrhea provoking 275.2 E83.42 6. Functional diarrhea 564.5 K59.1 May also need a diarrhea workup although this is 2 x 2 x a week with the loose stool making pathology less likely Plan Flu shot today as no fever , was her hearing aide Author: Andrea Su MD 08/09/2019 21:19 documented in this encounter Plan of Treatment Date Type Specialty Care Team Description 09/06/2019 Office Visit Family Practice Andrea Su MD [address] [place] [address] [phone] Name Type Priority Associated Diagnoses Date/Time URINE CULTURE (C&S) Lab Routine 08/09/2019 3:25 PM EDT Name Type Priority Associated Diagnoses Order Schedule URINE CULTURE (C&S) Lab Routine 1 Occurrences starting 08/09/2019 until 02/05/2020 Health Maintenance Due Date Last Done Comments [...] Associated Recent Patient-Stated? Author Type Problems Progress Blood Pressure Blood Pressure 138/68 No Sharlene, < 150/90 (08/09/2019 MD Andrea 2:46 PM EDT) Note: This is an individualized treatment (blood pressure) goal for Jaqueline Mack: Displayed above (on the left) is your goal for blood pressure control. Your most recent blood pressure is also shown above, on the right. You should try to achieve blood pressures that are lower than your goal listed above (on the left). Smoking Cessation COPD No Rosa Barlow FNP Note: This is [...] to eventually stop. 4. Connect to behavior counseling-[facility] Quit lines ([phone] or [facility]- [phone]), stop smoking groups-[facility] or Keep a regular sleep schedule Lifestyle [...] (HCC) - Primary Other specified cardiac dysrhythmias Essential hypertension Unspecified essential hypertension Pulmonary emphysema, unspecified emphysema type (HCC) Reactive depression Dysthymic disorder Hypomagnesemia Disorders of magnesium metabolism Functional diarrhea documented in this encounter Insurance Payer Benefit Plan / Subscriber ID Effective Dates Phone Address Type Group MEDICARE MEDICARE PART A & B xxxxxxxxxxx 1993-Present Medicare [facility] xxxxxxxxx 2016-Present [place] Guarantor Name Account Type Relation to Date of Phone Billing Patient Address Jaqueline Mack Beth Personal/Family 1945 [phone] [address] (Home) [place], [place] [phone] [id number] (Work) documented as of this encounter
[2019-08-14 17:09] LABS: Albumin 3.8 g/dL (3.2-5.2); Albumin/Globulin Ratio 1.6 (1-3); BUN/Creatinine Ratio 14.3 (8-20); Calcium 9.3 mg/dL (8.6-10.3); EGFR African American 99.8 (>60); EGFR Non-African American 82.5 (>60); Globulin 2.4 g/dL (2-4); Magnesium 1.4 mg/dL (1.9-2.7); Potassium 4.5 mmol/L (3.5-5.0); Total Bilirubin 0.5 mg/dL (0.2-1.0); Total Protein 6.2 g/dL (6.4-8.9)
[2019-08-14] MEDS ORDERED: Amiodarone 150 MG IVPREMIX* 150 MG/100 ML BAG IV ONE (17:09)
[2019-08-14] MEDS ORDERED: Adenosine* 3 MG/ML VIAL IV PUSH ONE ×2 (17:10)
[2019-08-14 17:11] LABS: Troponin I 0.01 ng/mL (<0.04)
[2019-08-14 17:13] LABS: CKMB ng/mL 3.9 ng/mL (0.6-6.3)
[2019-08-14] MEDS ORDERED: Magnesium Sulfate 2 GM IV* 2 GM/50 ML BAG IVPB ONE (17:17)
[2019-08-14] MEDS ORDERED: Albuterol/Ipratropium NEB.SOL* Albuterol 2.5 MG/Ipratropium 0.5 MG 3 ML INH ONE (17:29)
[2019-08-14 17:45] LABS: TSH (Thyroid Stimulating Horm) 2.66 mcIU/mL (0.34-5.60)
[2019-08-14] MEDS ORDERED: Albuterol 2.5 MG/3 ML NEB.SOL* (0.083%) INH PRN (18:14)
[2019-08-14] MEDS ORDERED: Nicotine* 2MG (FRUIT FLAVOR) GUM PO PRN (18:19)
[2019-08-14 18:31] LABS: Urine Appearance Clear; Urine Bacteria Absent (Absent); Urine Bilirubin Negative (Negative); Urine Blood 1+ (Negative); Urine Color Straw; Urine Glucose Negative (Negative); Urine Ketones Negative (Negative); Urine Nitrite Negative (Negative); Urine Protein Negative (Negative); Urine Red Blood Cell Trace(0-2/hpf) (Absent); Urine Specific Gravity 1.003 (1.010-1.030); Urine Squamous Epithelial Cell Present (Absent); Urine Urobilinogen Negative (Negative); Urine White Blood Cell Trace(0-5/hpf) (Absent)
[2019-08-14] MEDS ORDERED: Acetaminophen TAB* 325 MG PO PRN (18:37)
[2019-08-14] MEDS ORDERED: Amiodarone 360 MG IVPREMIX* 360 MG/200 ML BAG IV ONE (18:55)
[2019-08-14] MEDS ORDERED: Amiodarone 360 MG IVPREMIX* 360 MG/200 ML BAG IV SCH (19:00)
[2019-08-14] MEDS: Albuterol/Ipratropium NEB.SOL* Albuterol 2.5 MG/Ipratropium 0.5 MG 3 ML INH SCH ×2 (19:31→23:36)
[2019-08-14] MEDS: Mometasone/Formoter 100/5 MDI INH SCH (19:34)
--- NOTE | 2019-08-14 20:23 | HP ---
CC: Dr. Su; Dr. Collin Johnson * ADMISSION HISTORY AND PHYSICAL: DATE OF ADMISSION: 08/14/19 PRIMARY CARE PROVIDER: Dr. Su at [place]. ATTENDING FOR THIS ADMISSION: Dr. Britta Diaz.* (DICTATED BY SVETLANA WALKER NP) CARDIOLOGY: Dr. Collin Johnson. CHIEF COMPLAINT: Dizziness and palpitations. HISTORY OF PRESENT ILLNESS: Ms. Mack is a 73-year-old female patient who presented to the emergency department today with her son with a chief complaint of palpitations and feeling like she has a fast heart rate. The patient states that she has had history of SVT in the past and this time she feels the same. She was complaining of some dizziness and feeling of like she was going to pass out. She also had some accompanying shortness of breath, but she denied chest pain. She did not seek any treatment prior to coming to the emergency department. She did have an admission back in February 2019, where she had AFib and atrial tachycardia. She has also had history of hypertension, GERD, low magnesium, and lung cancer in the past. In the emergency department, after she was placed on the traffic monitor specialist, she was noted to be in heart rate of 178 and in SVT. She was initially given adenosine x3 doses at 6 mg, 12 mg, and 12 mg. During that time she was given the adenosine, they also attempted Valsalva maneuvers, which were unsuccessful at converting her rate. The adenosine also did not convert her rate. At that time, the ED physician did reach out to Cardiology, who was in agreement with cardioversion. The patient was given Versed and fentanyl. She was cardioverted with 50 joules and then subsequently converted to sinus rhythm with multifocal PVCs and PACs. At this time, the patient then was resting comfortably. Her symptoms had completely resolved. She was not complaining of any further shortness of breath. No further palpitations and no complaints of near syncope. At that time, cardiology did recommend that the patient be placed on an amio drip for rate control, which would require admission to the ICU. At that time, the hospitalist were contacted to admit the patient to the intensive care unit. PAST MEDICAL HISTORY: The patient's past medical history, as stated above, COPD with history of lung cancer; lung resection and lobectomy, history of tobacco abuse, history of atrial tachycardia and SVT, hypertension, GERD, hiatal hernia, arthritis, and seizures during several illnesses. PAST SURGICAL HISTORY: Right lobe lobectomy, hand surgery, tubal ligation, and a cholecystectomy. HOME MEDICATIONS: Include: 1. Spiriva 2 caps inhaled daily. 2. Nicotine spray 10 mg nasal 2 times a day. 3. Multivitamin with mineral 1 tab p.o. daily. 4. Metoprolol succinate XL 25 mg p.o. daily. 5. Magnesium oxide 250 mg p.o. daily. 6. Xyzal 5 mg p.o. daily. 7. Prevacid SoluTab 30 mg p.o. b.i.d. 8. Advair Diskus 100/50 two puffs inhaled b.i.d. 9. Flonase nasal spray 2 sprays both nares daily. 10. Celexa 10 mg p.o. daily. 11. Cetirizine 10 mg p.o. daily. 12. Icaps vitamins 2 tablets p.o. daily. 13. Aspirin 81 mg daily. 14. Combivent Respimat inhaled 4 times a day. 15. ProAir RespiClick 2 puffs inhaled q.4 hours as needed. 16. Albuterol nebulizer inhaled q.4 hours as needed for shortness of breath. ALLERGIES: The patient's allergies include SULFA, BACTRIM, VARENICLINE, and POWDER FROM GLOVES. FAMILY HISTORY: Significant for hypertension, coronary artery disease, strokes , and diabetes. SOCIAL HISTORY: The patient quit smoking 2 years ago. Denies any current alcohol use. Denies any illicit drug use. Her healthcare proxy is her daughter , Zoraida Naylor. Her phone number is [phone] or [phone]. REVIEW OF SYSTEMS: A 10-point review of systems is negative, except as noted in HPI above. PHYSICAL EXAMINATION GENERAL: The patient is alert, frail appearing, but in no acute distress. VITAL SIGNS: Blood pressure 117/70, heart rate variable between 80 and 113, O2 saturation 100% on 3 L nasal cannula with a temperature of 97.7. HEENT: The patient is atraumatic, normocephalic. PERRLA. Nonicteric sclerae. Oral mucosa is moist. Tongue is midline. NECK: Supple, nontender. No JVD noted. No carotid bruits auscultated. LUNGS: Clear at the apices, diminished at the bases. She does have bilateral expiratory wheezes, but she has good air entry. CARDIOVASCULAR: Rate is still prone to being tachycardic. Rhythm is regular. Otherwise, no murmurs, gallops, or rubs noted. ABDOMEN: Soft, nontender, and nondistended. Positive bowel sounds in all 4 quadrants. : Deferred. MUSCULOSKELETAL: There is no clubbing, no cyanosis, no pedal edema. She has + 2 distal pulses palpable. Full range of motion. Gross motor and sensation are intact. NEUROLOGIC: She is grossly intact with no focal deficits. PSYCHIATRIC: She is cooperative and appropriate. Alert and oriented x3. DIAGNOSTIC STUDIES/LAB DATA: Laboratories: WBCs 10.1, RBCs 4.63, hemoglobin 13.9, hematocrit 42, platelets 361. Sodium 128, potassium 4.5, chloride 95, CO2 of 27, BUN 10, creatinine 0.70, GFR 82.5, glucose 146, lactic acid 1.2, calcium 9.3, magnesium 1.4. Total bilirubin 0.50, AST 16, ALT 13, alk phos 76. Total creatine kinase 81, CK-MB 3.9, troponin 0.01, BNP 472. Total protein 6.2, albumin 3.8, globulin 2.4, albumin to globulin ratio 1.6. TSH is 2.66. EKG at admission at 4:07 p.m. shows SVT with a rate of 178. Post cardioversion at 5:10 p.m. shows a rate of 80 in regular sinus rhythm with no acute ST- segment changes. IMPRESSION: Ms. Mack is a 73-year-old female with history of atrial tachycardias in the past who presents to the emergency department today in supraventricular tachycardia with rate in the 170s to 180s, now status post cardioversion. PLAN: The patient has been admitted to ICU. DIAGNOSES: 1. Supraventricular tachycardia. The patient is now currently on an amiodarone drip. The ER has reached out to Cardiology per recommendations. They do recommend continuing amiodarone and Cardiology will be consulting on the patient in the morning. She will remain on telemetry for tonight. We will optimize her electrolytes. Her magnesium is somewhat low. She is already getting 2 g magnesium IV. We will recheck her mag in the morning, continue to optimize her electrolytes, and repeat an EKG for any further changes in rhythm. 2. History of chronic obstructive pulmonary disease and lung cancer, status post lobectomy. We will continue her Advair and her Spiriva nebs as needed and nicotine replacement. 3. History of gastroesophageal reflux disease and hiatal hernia. We will continue her PPI. 4. History of depression. We will continue her home dose of Celexa. 5. DVT prophylaxis. The patient will be placed on heparin subcu q.12 hours. She can be out of bed to chair as tolerated. 6. Diet. Heart healthy, no caffeine, as tolerated. The rest of the patient's course will be determined by further diagnostics, laboratories, and any other input from other providers as warranted during this admission. STATUS: Fair to guarded. TIME SPENT: Seventy-five minutes on critical care time, interviewing the patient and developing admission plan of care. SVETLANA WALKER NP [id number]/[facility] #: [id number] TERESA
[2019-08-14] MEDS: Amiodarone 360 MG IVPREMIX* 360 MG/200 ML BAG IV ONE (21:13)
[2019-08-14] MEDS ORDERED: Melatonin 3 MG TAB PO PRN (21:45)
[2019-08-14] MEDS ORDERED: Melatonin 3 MG TAB PO ONE (21:57)
[2019-08-14] MEDS: Pantoprazole TAB * 40 MG TAB PO SCH (21:59)
[2019-08-14] MEDS: Heparin VIAL(*) 5000 UNITS/ML VIAL (FIVE THOUSAND) SUBCUT SCH (21:59)
[2019-08-14] MEDS ORDERED: Albuterol/Ipratropium NEB.SOL* Albuterol 2.5 MG/Ipratropium 0.5 MG 3 ML INH PRN (23:39)
[2019-08-15] MEDS ORDERED: Albuterol 2.5 MG/3 ML NEB.SOL* (0.083%) INH PRN (00:48)
[2019-08-15] MEDS: Albuterol/Ipratropium NEB.SOL* Albuterol 2.5 MG/Ipratropium 0.5 MG 3 ML INH SCH ×2 (03:04→07:37)
[2019-08-15] MEDS: Amiodarone 360 MG IVPREMIX* 360 MG/200 ML BAG IV ONE (04:11)
[2019-08-15 06:12] LABS: ABS Basophils 0.1 10^3/ul (0-0.2); ABS Eosinophils 0.2 10^3/ul (0-0.6); ABS Lymphocytes 1.6 10^3/ul (1.0-4.8); ABS Monocytes 0.6 10^3/ul (0-0.8); ABS Neutrophils 5.8 10^3/ul (1.5-7.7); Eosinophil % 2.6 %; Hematocrit 40 % (35-47); Hemoglobin 13.4 g/dL (12.0-16.0); Lymphocyte % 19.5 %; Mean Corpuscular HGB Conc 34 g/dL (31-36); Mean Corpuscular Hemoglobin 30 pg (27-31); Mean Corpuscular Volume 90 fL (80-97); Mean Platelet Volume 6.8 fL (7.4-10.4); Nucleated Red Blood Cells % 0.1; Platelet Count 330 10^3/uL (150-450); Red Blood Count 4.41 10^6 /uL (3.70-4.87); Red Cell Distribution Width 13 % (10-15); White Blood Count 8.3 10^3/uL (3.5-10.8)
[2019-08-15 06:34] LABS: Albumin 3.7 g/dL (3.2-5.2); Albumin/Globulin Ratio 1.8 (1-3); BUN/Creatinine Ratio 10.3 (8-20); Calcium 9.2 mg/dL (8.6-10.3); EGFR African American 103.2 (>60); EGFR Non-African American 85.3 (>60); Globulin 2.1 g/dL (2-4); Magnesium 1.8 mg/dL (1.9-2.7); Potassium 4.3 mmol/L (3.5-5.0); Total Bilirubin 0.3 mg/dL (0.2-1.0); Total Protein 5.8 g/dL (6.4-8.9)
[2019-08-15] MEDS: Mometasone/Formoter 100/5 MDI INH SCH ×2 (07:37→20:04)
[2019-08-15] MEDS: SPIRIVA Respimat* (tiotropium) 2.5 mcg/inh Inhaler INH SCH (07:38)
[2019-08-15] MEDS ORDERED: Albuterol/Ipratropium NEB.SOL* Albuterol 2.5 MG/Ipratropium 0.5 MG 3 ML INH PRN (07:42)
[2019-08-15] MEDS ORDERED: Magnesium Sulfate 2 GM IV* 2 GM/50 ML BAG IVPB ONE (08:58)
[2019-08-15] MEDS ORDERED: Metoprolol Succinate XL TAB* 25 MG PO SCH (09:00)
[2019-08-15] MEDS: Pantoprazole TAB * 40 MG TAB PO SCH ×2 (09:19→20:53)
[2019-08-15] MEDS: Aspirin EC TAB* 81 MG TAB.EC PO SCH (09:19)
[2019-08-15] MEDS: Citalopram TAB* 10 MG PO SCH (09:20)
[2019-08-15] MEDS: Heparin VIAL(*) 5000 UNITS/ML VIAL (FIVE THOUSAND) SUBCUT SCH ×2 (09:30→20:53)
[2019-08-15] MEDS: Fluticasone NASAL SPRAY 50MCG* 16 gm SPRAY BTL BOTH NARES SCH (09:41)
--- NOTE | 2019-08-15 09:46 | PN ---
Subjective Interval History: No acute events overnight. amio gtt continues gets chronic diarrhea with the magnesium supplements, last used immodium 2-3 days ago. s/p Joseph consult in [place] 2 months ago. declined ablation procedure at that time. Was considering going to [place] for alternative to care. saw Dr. Thomas 07/14 as outpatient. Mag 1.8 from 1.4 full bladder no other complaints Objective Active Medications: Acetaminophen (Tylenol Tab*) 650 mg PO Q4H PRN PRN Reason: MILD PAIN or TEMP > 100.4 Albuterol (Ventolin 2.5 Mg/3 Ml Neb.Nadia*) 2.5 mg INH Q4H PRN PRN Reason: SOB/WHEEZING Last Admin: 08/15/19 00:49 Dose: 2.5 mg Albuterol/Ipratropium (Duoneb (Albuterol 2.5 Mg/Ipratropium 0.5 Mg)) 1 neb INH [id number] AWAKE PRN PRN Reason: SOB/WHEEZING Aspirin (Aspirin Ec Tab*) 81 mg PO DAILY [facility] Last Admin: 08/15/19 09:19 Dose: 81 mg Citalopram Hydrobromide (Celexa Tab*) 10 mg PO DAILY [facility] Last Admin: 08/15/19 09:20 Dose: 10 mg Fluticasone Propionate (Flonase Nasal [place] 50mcg*) 2 spray BOTH NARES DAILY [facility] Last Admin: 08/15/19 09:41 Dose: 2 spray Heparin Sodium (Porcine) (Heparin Vial(*)) 5,000 units SUBCUT Q12HR [facility] Last Admin: 08/15/19 09:30 Dose: 5,000 units Magnesium Sulfate (Magnesium Sulfate 2 Gm Iv*) 2 gm in 50 mls @ 50 mls/hr IVPB ONCE ONE Stop: 08/15/19 09:57 Last Admin: 08/15/19 09:23 Dose: 50 mls/hr Melatonin (Melatonin) 3 mg PO BEDTIME PRN PRN Reason: SLEEP Metoprolol Succinate (Toprol Xl Tab*) 25 mg PO DAILY [facility] Last Admin: 08/15/19 09:21 Dose: 25 mg Mometasone Furoate/Formoterol Fumar (Dulera 100/5 Mdi*) 2 puff INH BID [facility] Last Admin: 08/15/19 07:37 Dose: 2 puff Nicotine Polacrilex (Nicotine Gum*) 2 mg PO Q2H PRN PRN Reason: CRAVING Pantoprazole Sodium (Protonix Tab*) 40 mg PO BID [facility] Last Admin: 08/15/19 09:19 Dose: 40 mg Tiotropium Orange (Spiriva Respimat 2.5 Mcg) 2 puff INH DAILY [facility] Last Admin: 08/15/19 07:38 Dose: 2 puff Vital Signs - 8 hr 08/15/19 08/15/19 08/15/19 02:00 02:30 03:00 Temperature Pulse Rate 61 59 62 Respiratory 19 20 22 Rate Blood Pressure 118/66 100/56 94/56 (mmHg) O2 Sat by Pulse 99 100 100 Oximetry 08/15/19 08/15/19 08/15/19 03:30 04:00 04:01 Temperature 97.3 F Pulse Rate 60 60 60 Respiratory 21 14 14 Rate Blood Pressure 108/61 106/61 (mmHg) O2 Sat by Pulse 99 99 99 Oximetry 08/15/19 08/15/19 08/15/19 04:30 05:00 05:01 Temperature Pulse Rate 56 52 53 Respiratory 19 18 17 Rate Blood Pressure 113/67 113/57 (mmHg) O2 Sat by Pulse 99 100 99 Oximetry 08/15/19 08/15/19 08/15/19 05:30 06:00 06:01 Temperature Pulse Rate 56 59 59 Respiratory 13 16 20 Rate Blood Pressure 110/63 133/72 (mmHg) O2 Sat by Pulse 100 99 100 Oximetry 08/15/19 08/15/19 08/15/19 07:14 07:41 07:44 Temperature 97.3 F Pulse Rate 65 89 Respiratory 18 16 Rate Blood Pressure (mmHg) O2 Sat by Pulse 94 94 Oximetry Oxygen Devices in Use Now: None Appearance: NAD Eyes: No Scleral Icterus Neck: NL Appearance and Movements; NL JVP, Trachea Midline Respiratory: Symmetrical Chest Expansion and Respiratory Effort, Clear to Auscultation - but with reduced BS at b/l bases. , - Cardiovascular: NL Sounds; No Murmurs; No JVD, RRR Abdominal: NL Sounds; No Tenderness; No Distention, No Hepatosplenomegaly Extremities: No Edema, No Clubbing, Cyanosis Skin: No Rash or Ulcers Neurological: Alert and Oriented x 3 Nutrition: Taking PO's Result Diagrams: 08/15/19 05:54 08/15/19 05:54 Additional Lab and Data: Laboratory Results - last 24 hr 08/15/19 08/15/19 05:54 05:54 WBC 8.3 RBC 4.41 Hgb 13.4 Hct 40 MCV 90 MCH 30 MCHC 34 RDW 13 Plt Count 330 MPV 6.8 L Neut % (Auto) 69.6 Lymph % (Auto) 19.5 [place] % (Auto) 7.1 Eos % (Auto) 2.6 Baso % (Auto) 1.2 Absolute Neuts (auto) 5.8 Absolute Lymphs (auto) 1.6 Absolute Monos (auto) 0.6 Absolute Eos (auto) 0.2 Absolute Basos (auto) 0.1 Absolute Nucleated RBC 0.0 Nucleated RBC % 0.1 Sodium 136 D Potassium 4.3 Chloride 100 L Carbon Dioxide 29 Anion Gap 7 BUN 7 Creatinine 0.68 Est GFR ( Amer) 103.2 Est GFR (Non-Af Amer) 85.3 BUN/Creatinine Ratio 10.3 Glucose 100 Calcium 9.2 Magnesium 1.8 L Total Bilirubin 0.30 AST 15 ALT 11 Alkaline Phosphatase 71 Total Protein 5.8 L Albumin 3.7 Globulin 2.1 Albumin/Globulin Ratio 1.8 Microbiology and Other Data: Microbiology 08/14/19 18:18 Urine Urine Culture - Final 08/14/19 19:00 Nasal Nasal Screen MRSA (PCR) - Final Mrsa Not Detected Assess/Plan/Problems-Billing Assessment: 73 year old female PMH atrial tachycardia, COPD, lung cancer s/p lobectomy, frequent diarrhea, HTN, Richmond's esophagus, p/w SVT. s/p 6,12,12 adenosine, converted with cardioversion and now s/p amio gtt. starting oral amio. - Patient Problems (1) PSVT (paroxysmal supraventricular tachycardia) Current Visit: Yes Status: Acute Code(s): I47.1 - SUPRAVENTRICULAR TACHYCARDIA SNOMED Code(s): 84269542 Comment: appreciate cardio recs. transition to po amio 200mg BID for 7 days then 200mg daily. consider [place] EP referral on discharge, no interest in following in [place] again. stop BB s/p adenosine, electrical cardioversion, and amio gtt. in setting of COPD and lung lobectomy (2) Atrial tachycardia Current Visit: Yes Status: Acute Code(s): I47.1 - SUPRAVENTRICULAR TACHYCARDIA SNOMED Code(s): 202998215 Comment: plan as above. (3) COPD (chronic obstructive pulmonary disease) Current Visit: Yes Status: Acute Code(s): J44.9 - CHRONIC OBSTRUCTIVE PULMONARY DISEASE, UNSPECIFIED SNOMED Code(s): 60403420 Comment: continue albuterol, spiriva, dulera. not in acute exaccerbation. (4) Hx of cancer of lung Current Visit: Yes Status: Acute Code(s): Z85.118 - PERSONAL HISTORY OF MALIGNANT NEOPLASM OF BRONCHUS AND LUNG SNOMED Code(s): 726606968 (5) HTN (hypertension) Current Visit: Yes Status: Acute Code(s): I10 - ESSENTIAL (PRIMARY) HYPERTENSION SNOMED Code(s): 28801897 Comment: holding BB -> starting amio. well controlled. (6) Richmond esophagus Current Visit: Yes Status: Acute Code(s): K22.70 - RICHMOND'S ESOPHAGUS WITHOUT DYSPLASIA SNOMED Code(s): 876856324 Comment: missed outpatient EGD with Dr. Lugo 08/15 (7) Hypomagnesemia Current Visit: Yes Status: Acute Code(s): E83.42 - HYPOMAGNESEMIA SNOMED Code(s): 941481157 Comment: likely related to GI losses given frequent diarrea but will get 24 hour PEN RULER OPERATOR and Magnesium to rule out renal losses. continue supplementation Status and Disposition: medicine inpatient, downgrade to floor.
[2019-08-15] MEDS ORDERED: Ondansetron INJ* 2 MG/ML VIAL IV PRN (13:35)
--- NOTE | 2019-08-15 17:38 | CONS ---
CC: Dr. Papo Thomas; Dr. Andrea Su * CARDIOLOGY CONSULTATION: DATE OF CONSULT: 08/15/19 INDICATION FOR CONSULTATION: Atrial tachycardia. HISTORY OF PRESENT ILLNESS: The patient is a 73-year-old female with a history of atrial tachycardia, COPD, who comes to the hospital because of heart rate measuring 150 beats per minute on her blood pressure monitor. The patient states she had felt poorly on Thursday and took her blood pressure a couple of times. Her blood pressure was low and her pulse rate was about 150. Ultimately , she woke up on Thursday morning with the same symptoms and decided to come to the hospital. She was admitted with a heart rate of 150. She was given adenosine, which showed it was atrial tachycardia with 1:1 conduction. The patient ultimately was cardioverted to normal sinus rhythm and started on an amiodarone drip. In speaking to the patient this morning, she really has no specific complaints. She denies any chest pain, shortness of breath, orthopnea, or PND. The patient has chronic shortness of breath because of her COPD. She did not have any chest pain when she had her tachycardia. She did feel a little fatigued, but was unaware of any strong palpitations. The only way she was truly aware of that her heart was out of rhythm is that she took her blood pressure and noted the low blood pressure and a high pulse rate. PAST MEDICAL HISTORY: Significant for atrial tachycardia, diagnosed in February of 2019, she is followed by Dr. Thomas. She has a history of COPD, hypomagnesemia. PAST SURGICAL HISTORY: Lobectomy of the right lower lobe in 1995, cholecystectomy, tubal ligation. CURRENT MEDICATIONS: As an outpatient: 1. Metoprolol ER 25 mg a day. 2. Combivent inhaler. 3. Ventolin inhaler. 4. Lansoprazole 30 mg twice a day. 5. Aspirin 81 mg a day. 6. Cetirizine 10 mg a day. 7. Flonase nasal spray. 8. Magnesium oxide 250 mg a day. 9. ProAir inhaler. ALLERGIES: She is intolerant of Cartia and metoprolol, both of which caused fatigue. FAMILY HISTORY: Positive for hypertension. No history of early coronary artery disease or cardiac arrhythmias. SOCIAL HISTORY: She is a previous smoker, quit 1 year ago. She was a half a pack a day smoker up until then. She denies alcohol, denies illicit drug use. She drinks 4 cups of coffee a day. Does not get any regular exercise. She is retired. REVIEW OF SYSTEMS: Negative for fevers and chills. Negative for changes in bowel or bladder habits. Negative for change in weight. Other 12-point review is unremarkable. PHYSICAL EXAM: Height is 5 feet 2 inches, weight is 117 pounds, temperature 97.4, heart rate is 62, blood pressure 100/68, respiratory rate is 22, oxygen saturation 95% on 2 L. Sclerae anicteric. Oropharynx is pink without erythema. Carotids are 2+ without bruits. JV is normal. Thyroid is normal. Cardiac Exam: S1, S2 without any murmurs, rubs, or gallops. Lungs are clear to auscultation bilaterally. No dullness to percussion. There are slightly decreased breath sounds. Abdomen is soft, nontender, nondistended with normoactive bowel sounds. Extremities show no edema. She has 2+ pulses throughout. The patient is awake, alert, and oriented. She moves all 4 extremities equally. DIAGNOSTIC STUDIES/LAB DATA: Chemistries within normal limits. CBC within normal limits. BNP is minimally elevated at 472. TSH is normal. EKG shows normal sinus rhythm. Her initial EKG demonstrated atrial tachycardia with 1:1 conduction. The patient did have an echocardiogram through our office in February of 2019, which demonstrated normal LV size and systolic function, no significant valvular abnormalities, no evidence of pulmonary hypertension. IMPRESSION: This is a 73-year-old female with a history of chronic obstructive pulmonary disease, history of atrial arrhythmias who is admitted to the hospital with an atrial tachycardia at a rate of 50 beats per minute. The patient was cardioverted back to normal sinus rhythm and started on an amiodarone drip. According to Dr. Thomas's notes, the patient has been evaluated for an electrophysiology study and in the past has turned that down. For now, my recommendation is the patient to start amiodarone 200 mg b.i.d. for 7 days and then decrease that to 200 mg once a day. The patient will stop her metoprolol altogether. The patient will follow up with Dr. Thomas as an outpatient in 3 to 4 weeks. [id number]/[facility] #: [id number]
[2019-08-15 20:50] LABS: Influenza A Molecular NEGATIVE (Negative); Influenza B Molecular NEGATIVE (Negative)
[2019-08-15] MEDS: Amiodarone TAB* 200 MG PO SCH (20:53)
[2019-08-16 06:36] LABS: ABS Basophils 0.1 10^3/ul (0-0.2); ABS Eosinophils 0.3 10^3/ul (0-0.6); ABS Lymphocytes 1.5 10^3/ul (1.0-4.8); ABS Monocytes 0.5 10^3/ul (0-0.8); ABS Neutrophils 5.3 10^3/ul (1.5-7.7); Eosinophil % 3.5 %; Hematocrit 42 % (35-47); Hemoglobin 14.6 g/dL (12.0-16.0); Lymphocyte % 19.4 %; Mean Corpuscular HGB Conc 35 g/dL (31-36); Mean Corpuscular Hemoglobin 31 pg (27-31); Mean Corpuscular Volume 89 fL (80-97); Mean Platelet Volume 7.5 fL (7.4-10.4); Platelet Count 351 10^3/uL (150-450); Red Blood Count 4.76 10^6 /uL (3.70-4.87); Red Cell Distribution Width 13 % (10-15); White Blood Count 7.6 10^3/uL (3.5-10.8)
[2019-08-16 06:52] LABS: Albumin 3.8 g/dL (3.2-5.2); Calcium 9.3 mg/dL (8.6-10.3); Potassium 4.3 mmol/L (3.5-5.0); Total Bilirubin 0.5 mg/dL (0.2-1.0)
[2019-08-16 06:57] LABS: Albumin/Globulin Ratio 1.6 (1-3); BUN/Creatinine Ratio 13.7 (8-20); EGFR African American 95.1 (>60); EGFR Non-African American 78.6 (>60); Globulin 2.4 g/dL (2-4); Total Protein 6.2 g/dL (6.4-8.9)
[2019-08-16] MEDS: Amiodarone TAB* 200 MG PO SCH (08:13)
[2019-08-16] MEDS: Citalopram TAB* 10 MG PO SCH (08:13)
[2019-08-16] MEDS: Fluticasone NASAL SPRAY 50MCG* 16 gm SPRAY BTL BOTH NARES SCH ×2 (08:13→08:20)
[2019-08-16] MEDS: Aspirin EC TAB* 81 MG TAB.EC PO SCH (08:13)
[2019-08-16] MEDS: Heparin VIAL(*) 5000 UNITS/ML VIAL (FIVE THOUSAND) SUBCUT SCH (08:13)
[2019-08-16] MEDS: Pantoprazole TAB * 40 MG TAB PO SCH (08:23)
[2019-08-16] MEDS: SPIRIVA Respimat* (tiotropium) 2.5 mcg/inh Inhaler INH SCH (10:27)
[2019-08-16] MEDS: Mometasone/Formoter 100/5 MDI INH SCH (10:34)
[2019-08-16 11:04] VITALS: BP 147/66
--- NOTE | 2019-08-16 12:21 | DS ---
CC: Dr. Su; Dr. Papo Thomas; Dr. Frausto * DISCHARGE SUMMARY: DATE OF ADMISSION: 08/14/19 DATE OF DISCHARGE: 08/16/19 PRIMARY CARE PROVIDER: Dr. Su. CARDIOLOGISTS: Dr. Thomas, Dr. Frausto. DISPOSITION AT DISCHARGE: Home. CONDITION ON DISCHARGE: Stable. DISCHARGE DIAGNOSIS: An episode of paroxysmal supraventricular tachycardia, status post cardioversion by Dr. Frausto. SECONDARY DIAGNOSES: 1. Hypomagnesemia. 2. History of atrial tachycardia. Per Dr. Thomas, the patient in the past was not interested in ablation. 3. History of chronic obstructive pulmonary disease. 4. History of status post lobectomy of right lower lobe in 1995. 5. Cholecystectomy. 6. Tubal ligation. MEDICATIONS AT DISCHARGE: Include: 1. Amiodarone 200 mg twice a day for a total of 6 days, then go down to 200 mg daily. 2. The patient's metoprolol was discontinued. The remaining medications are unchanged and include: 1. Albuterol inhaler on a p.r.n. basis 2. Albuterol nebulizers on a p.r.n. basis. 3. Aspirin 81 mg daily. 4. Multivitamin 2 tablets daily. 5. Zyrtec 10 mg daily. 6. Celexa 20 mg daily. 7. Fluticasone nasal spray 2 sprays both nostrils daily. 8. Advair 100/50 two inhalations b.i.d. 9. Prevacid 30 mg b.i.d. 10. Xyzal 5 mg daily. 11. Magnesium gluconate as previously prescribed by her primary care provider. 12. Multivitamin 1 tablet daily. 13. Nicotine nasal p.r.n. 14. Spiriva 2 inhalations daily. 15. Amiodarone as above mentioned. CONSULTATION DURING THE HOSPITAL STAY: Included Dr. Frausto from Cardiology. LABORATORY DATA AND STUDIES PERFORMED DURING THE HOSPITAL STAY: Include, on 06/27, white blood cell count of 7.6, hemoglobin of 14.2, hematocrit of 42, and platelets of 351. Sodium 135, potassium 3.6, chloride 99, carbon dioxide 31, BUN 10, creatinine 0.73. Liver functions unremarkable. Portable chest x-ray at admission, impression: "Postsurgical changes. No evidence of acute findings." HOSPITALIZATION COURSE: Jaqueline Mack is a 73-year-old female with history of COPD, hypomagnesemia, and atrial tachycardia, who presented to the hospital complaining of palpitations. The patient was found to be in atrial tachycardia/ SVT and was cardioverted on 08/15/19. Post cardioversion, she was continued on amiodarone drip for a total of 24 hours and started on amiodarone p.o. She is to continue amiodarone p.o. for a total of 7 days, which 1 day she already completed during the hospital stay. After the b.i.d. dosages ended, she is to go to once a day dose. Her metoprolol was discontinued by Dr. Frausto's recommendation. The patient was found to have significant hypomagnesemia with a magnesium level at admission of 1.4. That was repleted. The patient states that she has had frequent loose bowel movements due to magnesium supplementation. She was prescribed magnesium gluconate by her primary care provider and she is in the process of obtaining it from her pharmacy that did not have it in stock at that point. The patient is recommended to continue the magnesium gluconate as previously prescribed by her primary care provider, and apart from introduction of amiodarone and discontinuation of metoprolol, no other changes were noted. The patient continued to be in sinus rhythm throughout her remaining hospital stay. Due to being on Celexa, her QTc was measured, and currently on telemetry monitoring, her QTc is approximately 390 milliseconds. We are obtaining an EKG to confirm that. PHYSICAL EXAM AT THE TIME OF DISCHARGE: Blood pressure of 127/87, heart rate of 65 and regular, respiratory rate 20, oxygen saturation 97% on room air, temperature 97.4. General: The patient is a very pleasant 73-year-old female, who is in no acute distress. Alert, awake, and oriented x3. HEENT: Head: Atraumatic, normocephalic. Eyes: Pupils are equal and reactive to light and accommodation. Oropharynx is clear. Mucosa moist. Neck: Supple. No JVD. No bruits bilaterally. Cardiovascular: Regular rate and rhythm. No murmur. Respiratory: Mild scant wheezes in bilateral mid lungs, otherwise clear. Abdomen: Soft, nontender. Bowel sounds are present in all 4 quadrants. Extremities: There is no edema. Pulses +2 bilaterally. No clubbing or cyanosis. On neuro evaluation, speech is clear. Cranial nerves II through XII grossly intact. Motor strength is 5/5 bilaterally. DISPOSITION AT DISCHARGE: Home. CONDITION ON DISCHARGE: Stable. The patient is to follow up with her primary provider in 4 to 7 days. The patient recommended to follow up with her primary opto mechanical engineer Dr. Papo Thomas in 1 to 2 weeks Please note that this is a short summary of the patient's hospital stay. Please refer to further medical records for details. TIME SPENT: Approximately 35 minutes was spent on the patient's discharge. [id number]/[facility] #: [id number] [facility]
[2019-08-16 12:23] LABS: Urine Creatinine Concentration 40.99 mg/dL
[2019-08-17 14:41] LABS: Urine Collection Duration 24 h
== END 2019-08-16 11:00 | disposition home or self-care (01) | DRG 310 ==
LOC: ED 16:03 → ICU 18:08
PROVIDERS: ADMIT Hospitalist; ATTEND Internal Medicine
PROC: 5A2204Z Restoration of Cardiac Rhythm, Single (ICD-10-PCS; principal; 2019-08-14)
DX: I47.1 Supraventricular tachycardia (principal); I48.91 Unspecified atrial fibrillation; K21.9 Gastro-esophageal reflux disease without esophagitis; E83.42 Hypomagnesemia; I10 Essential (primary) hypertension; H91.93 Unspecified hearing loss, bilateral; K44.9 Diaphragmatic hernia without obstruction or gangrene; F32.9 Major depressive disorder, single episode, unspecified; K52.9 Noninfective gastroenteritis and colitis, unspecified; K22.70 Barrett's esophagus without dysplasia; J44.9 Chronic obstructive pulmonary disease, unspecified; H26.9 Unspecified cataract; M47.9 Spondylosis, unspecified; Z97.4 Presence of external hearing-aid; Z90.2 Acquired absence of lung [part of]; Z87.891 Personal history of nicotine dependence; Z88.1 Allergy status to other antibiotic agents; Z88.2 Allergy status to sulfonamides; Z88.8 Allergy status to other drugs, medicaments and biological substances; Z90.49 Acquired absence of other specified parts of digestive tract; Z98.51 Tubal ligation status; Z85.118 Personal history of other malignant neoplasm of bronchus and lung; Z82.3 Family history of stroke; Z83.3 Family history of diabetes mellitus; Z79.82 Long term (current) use of aspirin; Z79.51 Long term (current) use of inhaled steroids
CPT/HCPCS: 36415; 71045; 80053; 81003; 81015; 82550; 82553; 82570; 83605; 83735; 83880; 84443; 84484; 85025; 85730; 87086; 87641; 93005; 94640; 96374; 96375; 99285; A9270-GY; J0153; J0282; J1644; J2250; J2405; J3010; J3475; J3490; J3535

== ENCOUNTER 2019-12-15 17:13 | Inpatient (IN) | payer MEDICARE, BC ==
[2019-12-15] MEDS ORDERED: Albuterol/Ipratropium NEB.SOL* Albuterol 2.5 MG/Ipratropium 0.5 MG 3 ML INH ONE ×3 (17:31→19:30)
[2019-12-15] MEDS ORDERED: methylPREDNISolone 125 MG* 2 ML VIAL IV ONE (17:31)
[2019-12-15] MEDS ORDERED: Magnesium Sulfate 2 GM IV* 2 GM/50 ML BAG IVPB ONE (17:31)
--- NOTE | 2019-12-15 17:47 | ED ---
Shortness of Breath - HPI Summary HPI Summary: 74 year old female presents with shortness of breath today. She states that she 's been getting more and more short of breath for past two days. She has been having wheezing and a cough. Denies any fevers or chills. Has history of lobectomy due to lung Cancer. She is not on oxygen at home. is not a current smoker. She was seen by primary yesterday and they gave her spirva. She denies any chest pain. No abdominal pain. No nausea and vomiting. she was given a breathing treatment by ems with some improvement. she has history of htn but is not diabetic. has history of GERD. has fam history of cardiac disease with dad heart attack at 92. history of a fib and not on blood thinners. - History of Current Complaint Chief Complaint: EDShortnessOfBreath Time Seen by Provider: 12/15/19 17:26 - Allergy/Home Medications Allergies/Adverse Reactions: Allergies Allergy/AdvReac Type Severity Reaction Status Date / Time sulfamethoxazole Allergy Rash Verified 07/21/19 17:25 [From Bactrim] trimethoprim [From Bactrim] Allergy Rash Verified 07/21/19 17:25 varenicline [From Chantix] Allergy Rash Verified 07/21/19 17:25 atenolol AdvReac Unknown Verified 12/15/19 21:45 Reaction Details diltiazem [From Cartia XT] AdvReac Unknown Verified 12/15/19 21:45 Reaction Details metoprolol AdvReac Unknown Verified 12/15/19 21:45 Reaction Details POWDER IN ALL GLOVES Allergy Itching Uncoded 07/21/19 17:25 Home Medications: Home Medications Amiodarone HCl [Pacerone-] 100 mg PO DAILY 12/15/19 [History Confirmed 12/15/19] PMH/Surg Hx/FS Hx/Imm Hx Endocrine/Hematology History: Reports: Other Endocrine/Hematological Disorders - hypomagnesemia Denies: Hx Diabetes Cardiovascular History: Reports: Hx Atrial Fibrillation, Hx Hypertension, Other Cardiovascular Problems/Disorders - SVT Respiratory History: Reports: Hx Chronic Obstructive Pulmonary Disease (COPD) Denies: Hx Asthma GI History: Reports: Hx Gastroesophageal Reflux Disease - ON PRILOSEC FOR, Hx Hiatal Hernia Musculoskeletal History: Reports: Hx Arthritis - SPINE Sensory History: Reports: Hx Cataracts - BILATERAL, Hx Contacts or Glasses, Hx Hearing Problem Denies: Hx Hearing Aid, Other Sensory Impairments Opthamlomology History: Reports: Hx Cataracts - BILATERAL, Hx Contacts or Glasses Denies: Other Sensory Impairments Neurological History: Reports: Hx Seizures - 3 SEIZURES- WHILE BEING SICK- 3 YEARS AGO - Cancer History Cancer Type, Location and Year: RLL 1990 Hx Chemotherapy: Yes - Surgical History Surgery Procedure, Year, and Place: 1990- RIGHT LOWER LOBECTOMY. GALLBLADDER AND GALLSTONES REMOVED- 1992-[facility]. 1970- TUBAL LIGATION. ENDOSCOPIES Hx Anesthesia Reactions: Yes - [facility]- HAD A HARD TIME WAKING UP-1992 Infectious Disease History: No Infectious Disease History: Denies: Traveled Outside the [place] in Last 30 Days - Family History Known Family History: Positive: Hypertension - Social History Alcohol Use: None Hx Substance Use: No Substance Use Type: Reports: None Hx Tobacco Use: Yes Smoking Status (MU): Former Smoker Type: Cigarettes Amount Used/How Often: 1/2 PPD X 25 YEARS ON AND OFF Have You Smoked in the Last Year: Yes Review of Systems Negative: Fever Negative: Chest Pain Positive: Shortness Of Breath, Cough All Other Systems Reviewed And Are Negative: Yes Physical Exam Triage Information Reviewed: Yes Vital Signs On Initial Exam: Initial Vitals Temp Pulse Resp BP Pulse Ox 97.5 F 110 24 165/110 99 12/15/19 17:15 12/15/19 17:15 12/15/19 17:15 12/15/19 17:15 12/15/19 17:15 Vital Signs Reviewed: Yes Appearance: Positive: Well-Appearing Skin: Positive: Warm, Dry Head/Face: Positive: Normal Head/Face Inspection Eyes: Positive: Normal, EOMI, HAM, Conjunctiva Clear ENT: Positive: Pharynx normal, TMs normal Respiratory/Lung Sounds: Positive: Breath Sounds Present, Wheezes Cardiovascular: Positive: Normal, RRR Abdomen Description: Positive: Nontender, Soft Bowel Sounds: Positive: Present Musculoskeletal: Positive: Normal Neurological: Positive: Normal Psychiatric: Positive: Normal Diagnostics - Vital Signs Vital Signs Temp Pulse Resp BP Pulse Ox 12/15/19 17:22 107 28 165/110 98 12/15/19 17:15 97.5 F 110 24 165/110 99 - Laboratory Result Diagrams: 12/15/19 18:22 12/15/19 18:22 Lab Statement: Any lab studies that have been ordered have been reviewed, and results considered in the medical decision making process. - Radiology chest Radiology Interpretation Completed By: ED Physician Summary of Radiographic Findings: no pneumonia - CT cta CT Interpretation Completed By: Radiologist Summary of CT Findings: IMPRESSION: 1. No pulmonary embolus. No dissection or aneurysm in the chest. 2. Large hiatal hernia with distension of the fluid- filled stomach and lower half of the esophagus. - EKG No standard instances Cardiac Rate: Tachycardia EKG Rhythm: Sinus Tachycardia EKG Comparison: No Significant Change Summary of EKG Findings: sinus tachycardia 2nd Cardiac Rate: Tachycardia EKG Rhythm: Sinus Tachycardia EKG Comparison: No Significant Change Summary of EKG Findings: sinus tachycardia Re-Evaluation - Re-Evaluation First Eval Re-Evaluation Time: 18:42 Change: Improved Comment: less wheezing present Second Eval Re-Evaluation Time: 19:27 Change: Improved Comment: feeling better, wheezing still noted, no chest pain Course/Dx - Course Course Of Treatment: 74 year old female presents with shortness of breath today. She states that she's been getting more short of breath for past 2 days. She has been having wheezing and a cough. Denies any fevers or chills. Has history of lobectomy due to lung Cancer. She is not on oxygen at home. She was seen by primary yesterday and they gave her spirva. She denies any chest pain. No abdominal pain. No nausea and vomiting. on exam wheezes noted. gave breathing treatment, mg and solumedrol with some improvement. wbc 12. chest xray similar to previous no definite pneumonia preliminary read. bnp 101. troponin .57 but patient denies any chest pain. admits to GERD pain. will get CTA with tachycardia and history of a fib. discussed case with dr mercer. will give aspirin as no chest pain at this time with elevate troponin. CTA shows no pe. discussed with dr crouch who agrees to admit. - Diagnoses Differential Diagnosis/HQI/PQRI: Positive: COPD Exacerbation, Pulmonary Embolism , Unstable Angina Provider Diagnoses: COPD (chronic obstructive pulmonary disease), Elevated troponin - Critical Care Time Critical Care Time: 30-74 min - 40 mins Discharge ED - Sign-Out/Discharge Documenting (check all that apply): Patient Departure - Discharge Plan Condition: Stable Disposition: ADMITTED TO [facility] - Billing Disposition and Condition Condition: STABLE Disposition: Admitted to [facility]
[2019-12-15 18:32] LABS: ABS Basophils 0.1 10^3/ul (0-0.2); ABS Eosinophils 0.3 10^3/ul (0-0.6); ABS Lymphocytes 2.1 10^3/ul (1.0-4.8); ABS Monocytes 0.9 10^3/ul (0-0.8); ABS Neutrophils 8.9 10^3/ul (1.5-7.7); Eosinophil % 2.1 %; Hematocrit 41 % (35-47); Hemoglobin 14.2 g/dL (12.0-16.0); Lymphocyte % 16.9 %; Mean Corpuscular HGB Conc 35 g/dL (31-36); Mean Corpuscular Hemoglobin 31 pg (27-31); Mean Corpuscular Volume 90 fL (80-97); Nucleated Red Blood Cells % 0.1; Platelet Count 348 10^3/uL (150-450); Red Blood Count 4.58 10^6 /uL (3.70-4.87); Red Cell Distribution Width 13 % (10-15); White Blood Count 12.3 10^3/uL (3.5-10.8)
--- OUTSIDE RECORDS SUMMARY | 2019-12-15 18:34 | XMS REPORT | Summary of Care ---
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 type (HCC) ([place] [address] [place] [address] Dx) [phone] Allergies No Known Allergiesdocumented as of this encounter (statuses as of 12/13/2019) Medications Medication Sig Dispensed Refills Start End Date Status Date Multiple Vitamin Take by mouth 0 Active (MULTI-VITAMIN PO) DAILY. aspirin (ECOTRIN) 81 Take 81 mg by 0 Active MG Oral Tab EC mouth DAILY. Multiple Take 2 Caps by 0 Active Vitamins-Minerals mouth DAILY. (ICAPS PO) fluticasone Mesa 2 Sprays 1 Each 2 Active (FLONASE) 50 MCG/ACT in nose DAILY. 9 Nasal Suspension magnesium oxide 500 Take 250 mg by 0 Active MG Oral Tab mouth DAILY. albuterol 3 mL by 360 mL 1 Active (PROVENTIL, Inhalation-SVN 9 VENTOLIN) (2.5 route EVERY MG/3ML) 0.083% FOUR HOURS Inhalation Nebu Soln NEEDED (wheezing). NICOTROL 10 MG use as 168 Each 3 Active Inhalation directed 1-2 9 InhalerIndications: TIMES PER DAY Tobacco abuse Levocetirizine Take 1 Tab by 90 Tab 1 Active Dihydrochloride 5 MG mouth DAILY. 9 Oral TabIndications: Seasonal allergies amiodarone Take 100 mg by 0 Active (PACERONE, mouth. CORDARONE) 100 MG Oral Tab Lansoprazole 30 MG TAKE 1 CAPSULE 180 Cap 0 Active Oral CAPSULE DELAYED BY MOUTH TWICE 9 RELEASE A DAY albuterol HFA INHALE 2 PUFFS 42.5 g 0 Active (VENTOLIN) 108 (90 BY MOUTH EVERY 9 Base) MCG/ACT 4 HOURS Inhalation Aero SolnIndications: Pulmonary emphysema, unspecified emphysema type (HCC) COMBIVENT RESPIMAT INHALE 1 PUFF 12 g 3 Active 20-100 MCG/ACT BY MOUTH FOUR 0 Inhalation Aero TIMES A DAY SolnIndications: COPD (chronic obstructive pulmonary disease) (HCC) budesonide-formotero Take 2 INHL by 1 Inhaler 3 Active l fumarate inhalation 0 (SYMBICORT) 80-4.5 NEEDED (SOB). MCG/ACT Inhalation AerosolIndications: Pulmonary emphysema, unspecified emphysema type (HCC) predniSONE Take 2 Tabs by 10 Tab 0 12/13/19 Discontinued (DELTASONE) 20 MG mouth DAILY. 9 20 (Therapy Oral Tab Completed) doxycycline Take 100 mg by 20 Tab 0 12/13/19 Discontinued (VIBRAMYCIN) 100 MG mouth TWICE 9 20 (Therapy Oral Tab DAILY. Completed) predniSONE Take 1-3 Tabs 18 Tab 0 12/13/19 Discontinued (DELTASONE) 10 MG by mouth 9 20 (Therapy Oral Tab DAILY. 3 for 3 Completed) days then 2 for 3 days then 1 for 3 days budesonide-formotero Take 2 INHL by 1 Inhaler 3 12/13/19 Discontinued l fumarate inhalation 0 20 (Reorder) (SYMBICORT) 80-4.5 NEEDED (SOB). MCG/ACT Inhalation Aerosol documented as of this encounter (statuses as of 12/13/2019) Active Problems Problem Noted Date Atrial tachycardia [...] as of this encounter (statuses as of 12/13/2019) Resolved Problems Problem Noted Date Resolved Date Tobacco abuse 08/24/2008 04/14/2019 Overview: Began age 17, 1 packs per day Quit 11/17, reastarted 03/17 documented as of this encounter (statuses as of 12/13/2019) Immunizations Name Administration Dates Next Due Influenza [...] Sign Reading Time Taken Comments Blood Pressure 112/60 12/13/2019 2:07 PM EST Pulse 92 12/13/2019 2:07 PM EST Temperature - - Respiratory Rate - - Oxygen Saturation 95% 12/13/2019 2:07 PM EST Inhaled Oxygen Concentration - - Weight 56.2 kg (124 lb) 12/13/2019 2:07 PM EST Height - - Body Mass Index 22.68 10/25/2019 2:50 PM EST documented in this encounter Patient Instructions Patient InstructionsRosa Barlow FNP - 12/13/2019 2:00 PM ESTAdd sterid inhaler - use after albuterol Consider seeing Pulmonary specialist documented in this encounter Progress Notes Rosa Barlow FNP - 12/13/2019 2:00 PM EST PATIENT: Jaqueline Mack : 1945 DATE OF SERVICE: 12/13/2019 CHIEF COMPLAINT: Chief Complaint Patient presents with Sinus Problem causing dizziness Breathing Problem x2 week Subjective HISTORY OF PRESENT ILLNESS: Jaqueline Mack is a 74-y.o. female. 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 dysplastic cells 2012 no dysplastic cells so 2 years 2015 possible dysplasia 6 mo again Cancer (HCC) Candidal esophagitis (HCC) COPD COPD (chronic obstructive pulmonary disease) ([facility]) 08/24/2008 Depression GERD (gastroesophageal reflux disease) 2009 barretts [place] (hard of hearing) left Malignant neoplasm of bronchus and lung, unspecified site 1990 Osteopenia 2013 Frax 7.6 and .8 Other and unspecified hyperlipidemia Postmenopausal Sinusitis Squamous cell carcinoma of hand 2017 SVT (supraventricular tachycardia) ([facility]) Tobacco use disorder Family History Problem Relation [...] 108 (90 Base) MCG/ACT Inhalation Aero Soln INHALE 2 PUFFS BY MOUTH EVERY 4 HOURS amiodarone (PACERONE, CORDARONE) 100 MG Oral Tab Take 100 mg by mouth. aspirin (ECOTRIN) 81 MG Oral Tab EC Take 81 mg by mouth DAILY. budesonide-formoterol fumarate (SYMBICORT) 80-4.5 MCG/ACT Inhalation Aerosol Take 2 INHL by inhalation NEEDED (SOB). COMBIVENT RESPIMAT 20-100 MCG/ACT Inhalation Aero Soln INHALE 1 PUFF BY MOUTH FOUR TIMES A DAY fluticasone (FLONASE) 50 MCG/ACT Nasal Suspension Mesa 2 Sprays in nose DAILY. Lansoprazole 30 MG Oral CAPSULE DELAYED RELEASE TAKE 1 CAPSULE BY MOUTH TWICE A DAY Levocetirizine Dihydrochloride 5 MG Oral Tab Take 1 Tab by mouth DAILY. magnesium oxide 500 MG Oral Tab Take 250 mg by mouth DAILY. Multiple Vitamin (MULTI-VITAMIN PO) Take by mouth DAILY. Multiple Vitamins-Minerals (ICAPS PO) Take 2 Caps by mouth DAILY. NICOTROL 10 MG Inhalation Inhaler use as directed 1-2 TIMES PER DAY No current facility-administered medications for this visit. No Known Allergies Social History Socioeconomic History Marital status: Spouse name: Not on file Number of children: Not on file Years of education: Not on file Highest education level: Not on file Occupational History Not on file Social Needs Financial resource strain: Not on file Food insecurity Worry: Not on file Inability: Not on file Transportation needs Medical: Not on file Non-medical: Not on file Tobacco Use Smoking status: Former Smoker Packs/day: 0.50 Years: 15.00 Pack years: 7.50 Types: Cigarettes Last attempt to quit: 11/09/2017 Years since quittin.0 Smokeless tobacco: Never Used Substance and Sexual Activity Alcohol use: No Alcohol/week: 0.0 standard drinks Drug use: No Sexual activity: Yes Partners: Male Lifestyle Physical activity Days per week: Not on file Minutes per session: Not on file Stress: Not on file Relationships Social connections Talks on phone: Not on file Gets together: Not on file Attends tenriism service: Not on file Active member of club or organization: Not on file Attends meetings of clubs or organizations: Not on file Relationship status: Not on file Intimate partner violence Fear of current or ex partner: Not [...] Concern No Social History Narrative Lives in [facility], spends winter in [place] smokes REVIEW OF SYSTEMS: Review of Systems Constitutional: Negative for chills, fever and malaise/fatigue. HENT: Positive for congestion. Negative for ear pain and sore throat. Respiratory: Positive for cough, shortness of breath and wheezing. Negative for sputum production. Neurological: Negative for dizziness and headaches. Objective PHYSICAL EXAM: VITALS: BP 112/60 | Pulse 92 | Wt 124 lb (56.2 kg) | SpO2 95% | BMI 22.68 kg/m Body mass index is 22.68 kg/m. Physical Exam Vitals signs and nursing note reviewed. Constitutional: Appearance: Normal appearance. HENT: Head: Normocephalic and atraumatic. Right Ear: Tympanic membrane normal. Ears: Comments: Cerumen left eat canal - removed with curette Cardiovascular: Rate and Rhythm: Normal rate and regular rhythm. Pulmonary: Effort: Pulmonary effort is normal. No respiratory distress. Breath sounds: Wheezing present. No rhonchi or rales. Chest: Chest wall: No tenderness. Skin: General: Skin is warm and dry. Capillary Refill: Capillary refill takes less than 2 seconds. Coloration: Skin is not ashen, cyanotic or pale. Neurological: Mental Status: She is alert and oriented to person, place, and time. Psychiatric: Behavior: Behavior is cooperative. ASSESSMENT / IMPRESSION: ICD-9-CM ICD-10-CM 1. Pulmonary emphysema, unspecified emphysema type ([facility]) 492.8 J43.9 budesonide- formoterol fumarate (SYMBICORT) 80-4.5 MCG/ACT Inhalation Aerosol Plan Add sterid inhaler - use after albuterol Consider seeing editorial specialist Author: NICKY Campbell 12/13/2019 14:48 documented in this encounter Plan of Treatment Health Maintenance Due Date Last Done Comments PAP SMEAR 03/30/2013 03/30/2012, 08/24/2008 ZOSTER IMMUNIZATION SERIES 01/19/2014 11/24/2013 (2 of 3) EGD (ESOPHAGODUODENOSCOPY) 07/29/2017 07/29/2016, 08/13/2015, 08/15/2013, Additional history exists MEDICARE ANNUAL WELLNESS 05/13/2019 05/13/2018, 07/19/2013 VISIT MAMMOGRAM (SCREENING) 02/24/2020 02/23/2019, 08/04/2017, 06/17/2016, Additional history exists DEPRESSION SCREENING 04/14/2020 04/14/2019, 05/13/2018 LIPID DISORDER SCREENING 07/21/2020 07/21/2019, 05/13/2018, 03/17/2017, Additional history exists FALL RISK ASSESSMENT 09/21/2020 09/21/2019, 09/21/2019 OSTEOPOROSIS SCREENING 08/05/2023 08/05/2013 DTaP/Tdap/Td Vaccines (2 - 06/08/2028 06/08/2018 Tdap) HEPATITIS C SCREENING Completed 07/04/2014 PNEUMOCOCCAL 65+YRS Completed 08/10/2015, 07/19/2013, 03/14/2010 INFLUENZA VACCINE Completed 08/09/2019, 08/06/2018, 07/19/2014, Additional history exists HEPATITIS A IMMUNIZATION Aged Out No longer eligible SERIES based on patient's age to complete this topic HPV IMMUNIZATION SERIES Aged Out No longer eligible based on patient's age to complete this topic MENINGOCOCCAL VACCINE IMM Aged Out No longer eligible based on patient's age to complete this topic documented as of this encounter Goals Goal Patient Goal Associated Recent Patient-Stated? Author Type Problems Progress Blood Pressure Blood Pressure 112/60 No Sharlene, < 150/90 (12/13/2019 MD Andrea 2:07 PM EST) Note: This is an individualized treatment (blood pressure) goal for Jaqueline Mcak: Displayed above (on the left) is your [...] 4. Connect to behavior counseling-State Quit lines ([phone] or [facility]- [phone]), stop smoking groups-[facility] or Keep a regular sleep schedule [...] filedocumented in this encounter Visit Diagnoses Diagnosis Pulmonary emphysema, unspecified emphysema type (HCC) documented in this encounter Insurance Payer Benefit Plan / Subscriber ID Effective Dates Phone Address Type Group MEDICARE MEDICARE PART A & B xxxxxxxxxxx 1993-Present Medicare UHC E[employer] xxxxxxxxx 2016-Present [place] [employer] Guarantor Name Account Type Relation to Date of Phone Billing Patient Address Jaqueline Mack Personal/Family 1945 [address] (Home) [place], [place] [phone] [id number] (Work) documented as of this encounter"
--- OUTSIDE RECORDS SUMMARY | 2019-12-15 18:35 | XMS REPORT | Continuity of Care Document ---
:1945 External Reference #:[id number] Author Name Papo Thomas, DO FACC (transmitted by agent of provider Esperanza Willingham) Address [address] 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 Problems Description No Information Available Social History Type Date Description Comments Sex Unknown Tobacco Use Start: Unknown End: Former Cigarette Smoker 1/2 PPD for 25 Unknown years on and off Smoking Status Reviewed: 10/17/19 Former Cigarette Smoker 1/2 PPD for 25 [...] Medications SIG Qnty Indications Ordering Date Provider Amiodarone HCL Take one by mouth 90tabs I47.1 Papo Thomas, 10/17/2019 100mg daily DO FACC Tablets Imodium prn Unknown 08/31/2019 Mirtazapine 1 tab by mouth at Unknown 15mg bedtime Tablets Proair HFA 2 puffs every 4 Unknown 108(90Base) hours as needed mcg/Act Aerosol Nicotrol 1 cartridges every Unknown 10mg Inhaler 2 hours as needed SM Magnesium Oxide 1 tab by mouth 90tabs Unknown every day 250mg Tablets Fluticasone 2 sprays each Unknown Propionate nostril daily as 50mcg/Act needed Suspension Cetirizine HCL 1 by mouth every Unknown 10mg day-prn Tablets Aspirin 81 Low Dose 1 by mouth every Unknown day 81mg Chewtabs Tylenol Extra 1-2 tabs by mouth Unknown Strength every 6 hours as 500mg Tablets needed Lansoprazole 1 by mouth twice Unknown 30mg every day Capsules DR Escobar For Her 50+ 1 po qd Unknown Capsules Combivent Respimat Andrea Su MD 20-100mcg/Act Aerosol History Medications Icaps MV 1 by mouth Papo Thomas, 07/14/2019 - Tablets every day DO [facility] 08/24/2019 Metoprolol Succinate 1/2 by mouth 90tabs Papo Thomas, 07/07/2019 - ER twice daily DO [facility] 08/24/2019 25mg Tablets ER 24HR Amiodarone HCL 1 by mouth 30tabs Papo Thomas, 07/06/2019 - 400mg every day DO [facility] 07/07/2019 Tablets Cartia XT 1 by mouth 30caps Papo Thomas, 07/05/2019 - 180mg Caps every day DO [facility] 07/06/2019 ER 24HR Atenolol 1 by mouth 90tabs I47.1 Papo Thomas, 06/27/2019 - 25mg Tablets every day DO [facility] 07/05/2019 Immunizations Description No Information Available Vital Signs Date Vital Result Comment 10/17/2019 1:32pm Height 62 inches 5'2" Weight 119.00 lb with shoes Heart Rate 90 /min regular BP Systolic Sitting 146 mmHg Rue reg cuff BP Diastolic Sitting 84 mmHg Rue reg cuff BP Systolic Standing 138 mmHg Rue reg cuff BP Diastolic Standing 78 mmHg Rue reg cuff Respiratory Rate 16 /min BMI (Body Mass Index) 21.8 kg/m2 Ejection Fraction 55-60% ECHO 02/16/2019 08/25/2019 9:23am Height 62 inches 5'2" Weight 113.00 lb with shoes Heart Rate 67 /min BP Systolic Sitting 112 mmHg BP Diastolic Sitting 66 mmHg BP Systolic Standing 112 mmHg BP Diastolic Standing 62 mmHg BMI (Body Mass Index) 20.7 kg/m2 Ejection Fraction 50-55% Echo 02/16/19 Results Description No Information Available Procedures Date Code Description Status 08/25/2019 28360 EKG Tracing & Interpretation Completed 08/16/2019 19601 EKG, Interpretation Only Completed 07/14/2019 62685 EKG Tracing & Interpretation Completed 06/27/2019 68547 Holter Monitor Review (24 hr)dr bazan & gracie only Completed 06/23/2019 68493 ECG Monitor/Recording W/Visual Superimposition Scanning Completed Medical Devices Description No Information Available Encounters Type Date Location Provider Dx Diagnosis Office Visit 08/25/2019 [facility] Papo S. I47.1 Supraventricular 9:40a Of Administrative And Program Specialist Thomas, DO FACC tachycardia E83.42 Hypomagnesemia J44.9 Chronic obstructive pulmonary disease, unspecified Office Visit 08/16/2019 [facility] Aviva I47.1 Supraventricular 10:52a Assocóscar M.D. tachycardia Hospitalists E83.42 Hypomagnesemia Office Visit 08/15/2019 [facility] Avery Moore I47.1 Supraventricular 2:56p Of Nilo Frausto M.D. tachycardia Office Visit 08/15/2019 [facility] Kun Allen I47.1 Supraventricular 10:52a Assocóscar MD tachycardia Hospitalists E83.42 Hypomagnesemia Office Visit 08/14/2019 [facility] Chelo I47.1 Supraventricular 10:52a Assóscar almonte [facility] tachycardia Hospitalists GREG Wallace Office Visit 07/14/2019 [facility] Papo S. I47.1 Supraventricular 3:40p Of Administrative And Program Specialist Thomas, DO tachycardia FACC F17.201 Nicotine dependence, unspecified, in remission J44.9 Chronic obstructive pulmonary disease, unspecified Assessments Date Code Description Provider 10/17/2019 I47.1 Supraventricular tachycardia Papo Thomas, DO FACC 10/17/2019 E87.6 Hypokalemia Papo SGab Thomas, DO FACC 10/17/2019 E83.42 Hypomagnesemia Papo SGab Thomas, DO FACC 08/25/2019 I47.1 Supraventricular tachycardia Papo SGab Thomas, DO FACC 08/25/2019 E83.42 Hypomagnesemia Papo SGab Thomas, DO FACC 08/25/2019 J44.9 Chronic obstructive pulmonary Papo Thomas, DO FACC disease, unspecified 08/16/2019 R94.31 Abnormal electrocardiogram [ECG] Mahad Vale M.D., [facility], [EKG] FSCAI 08/16/2019 I47.1 Supraventricular tachycardia Aviva Interiano M.D. 08/16/2019 E83.42 Hypomagnesemia Aviva Interiano M.D. 08/15/2019 I47.1 Supraventricular tachycardia Avery Frausto M.D. 08/15/2019 I47.1 Supraventricular tachycardia Kun Allen MD 08/15/2019 E83.42 Hypomagnesemia Kun Allen MD 08/14/2019 I47.1 Supraventricular tachycardia Cheloalvaro Wallace, GREG 07/14/2019 I47.1 Supraventricular tachycardia Papo Thomas, DO [facility] 07/14/2019 F17.201 Nicotine dependence, unspecified, in Papo Thomas, DO [facility] remission 07/14/2019 J44.9 Chronic obstructive pulmonary Papo Thomas, DO [facility] disease, unspecified 06/27/2019 I47.1 Supraventricular tachycardia Papo Thomas, DO [facility] 06/23/2019 I47.1 Supraventricular tachycardia Nurse Visit IC Plan of Treatment Future Appointment(s):12/20/2019 11:20 am - Papo Thomas DO [facility] at [facility]10/17/2019 - Papo Thomas DO FACCI47.1 Supraventricular tachycardiaNew Medication:Amiodarone HCL 100 mg - Take one by mouth dailyNew Labs:Comp Metabolic Panel, Ordered: 10/17/19Comments:Have blood work prior to follow up visitFollow up:f/u 2 months with EKG, blood work prior to solvtF25.6 TpqapyfifztT26.42 HypomagnesemiaNew Labs:Magnesium, Ordered: 10/17/19 Functional Status Description No Information Available Mental Status Description No Information Available Referrals Refer to Reason for Referral Status Appt Date Omar Pozo MD symptomatic atrial tachycardia in setting of Sent 0000/ 0000 lung disease has tried multiple CCB and BB, please evaluate and treat [address] [place] [address] [phone]
--- OUTSIDE RECORDS SUMMARY | 2019-12-15 18:35 | XMS REPORT | Summary of Care ---
:1945 Author Organization [facility] Address [address] [address] Care Team Providers Name Role Phone Andrea Su Primary Care Provider Bernabe Higginbotham MD Unavailable Reason for Visit Reason Comments Follow Up pt presents for follow up, also still have on going cough and congestion Encounter Details Date Type Department Care Team Description 10/25/2019 Office Visit [facility] Andrea Su MD Acute bronchitis, unspecified organism (Primary Dx); Practice [address] Pulmonary emphysema, unspecified emphysema type ([facility]); [address] [place] [address] Atrial tachycardia ([facility]) [place] [address] [phone] Allergies No Known Allergiesdocumented as of this encounter (statuses as of 10/25/2019) Medications Medication Sig Dispensed Refills Start Date End Date Status Multiple Vitamin Take by mouth 0 Active (MULTI-VITAMIN PO) DAILY. aspirin (ECOTRIN) 81 MG Take 81 mg by 0 Active Oral Tab EC mouth DAILY. Multiple Take 2 Caps by 0 Active Vitamins-Minerals (ICAPS mouth DAILY. PO) COMBIVENT RESPIMAT inhale 1 puff by 12 g 3 03/07/2019 Active 20-100 MCG/ACT mouth four times Inhalation Aero a day SolnIndications: COPD (chronic obstructive pulmonary disease) ([facility]) fluticasone (FLONASE) 50 [place] 2 Sprays 1 Each 2 05/30/2019 Active MCG/ACT Nasal Suspension in nose DAILY. magnesium oxide 500 MG Take 250 mg by 0 Active Oral Tab mouth DAILY. albuterol (PROVENTIL, 3 mL by 360 mL 1 07/04/2019 Active VENTOLIN) (2.5 MG/3ML) Inhalation-SVN 0.083% Inhalation Nebu route EVERY FOUR Soln HOURS NEEDED (wheezing). NICOTROL 10 MG use as directed 168 Each 3 07/13/2019 Active Inhalation 1-2 TIMES PER InhalerIndications: DAY Tobacco abuse Levocetirizine Take 1 Tab by 90 Tab 1 08/03/2019 Active Dihydrochloride 5 MG mouth DAILY. Oral TabIndications: Seasonal allergies amiodarone (PACERONE, Take 100 mg by 0 Active CORDARONE) 100 MG Oral mouth. Tab predniSONE (DELTASONE) Take 2 Tabs by 10 Tab 0 10/17/2019 Active 20 MG Oral Tab mouth DAILY. Additional information Patient taking differently: 10 mg Oral DAILY, Reported on 10/25/2019 2:49 PM Lansoprazole 30 MG Oral TAKE 1 CAPSULE BY 180 Cap 0 10/18/2019 Active CAPSULE DELAYED RELEASE MOUTH TWICE A DAY albuterol HFA INHALE 2 PUFFS BY 42.5 g 0 10/19/2019 Active (VENTOLIN) 108 (90 MOUTH EVERY 4 Base) MCG/ACT HOURS Inhalation Aero SolnIndications: Pulmonary emphysema, unspecified emphysema type (HCC) doxycycline Take 100 mg by 20 Tab 0 10/25/2019 Active (VIBRAMYCIN) 100 MG mouth TWICE DAILY. Oral Tab predniSONE (DELTASONE) Take 1-3 Tabs by 18 Tab 0 10/25/2019 Active 10 MG Oral Tab mouth DAILY. 3 for 3 days then 2 for 3 days then 1 for 3 days mirtazapine (REMERON) Take 1 Tab by 30 Tab 1 08/09/2019 10/25/2019 Discontinued 15 MG Oral Tab mouth EVERY BEDTIME. amoxicillin-clavulanic Take 1 Tab by 20 Tab 0 10/17/2019 10/25/2019 Discontinued acid (AUGMENTIN 875 MG) mouth TWICE DAILY. 875-125 MG Oral Tab fluconazole (DIFLUCAN) Take 1 Tab by 2 Tab 0 10/17/2019 10/25/2019 Discontinued 150 MG Oral Tab mouth DAILY. documented as of this encounter (statuses as of 10/25/2019) Active Problems Problem Noted Date Atrial tachycardia [...] as of this encounter (statuses as of 10/25/2019) Resolved Problems Problem Noted Date Resolved Date Tobacco abuse 08/24/2008 04/14/2019 Overview: Began age 17, 1 packs per day Quit 11/17, reastarted 03/17 documented as of this encounter (statuses as of 10/25/2019) Immunizations Name Administration Dates Next Due Influenza [...] Sign Reading Time Taken Comments Blood Pressure 142/80 10/25/2019 3:34 PM EST Pulse 83 10/25/2019 2:50 PM EST Temperature - - Respiratory Rate - - Oxygen Saturation 96% 10/25/2019 2:50 PM EST Inhaled Oxygen Concentration - - Weight 55.1 kg (121 lb 6.4 oz) 10/25/2019 2:50 PM EST Height 157.5 cm (5' 2") 10/25/2019 2:50 PM EST Body Mass Index 22.2 10/25/2019 2:50 PM EST documented in this encounter Progress Notes Andrea Su MD - 10/25/2019 2:40 PM EST PATIENT: Jaqueline Mack : 1945 DATE OF SERVICE: 10/25/2019 CHIEF COMPLAINT: Chief Complaint Patient presents with Follow Up pt presents for follow up, also still have on going cough and congestion Subjective HISTORY OF PRESENT ILLNESS: Jaqueline Mack is a 74-y.o. female. Reason for the appointment is she not feel any better from her Bronchitis/COPD. She was put on augmentin and prednisone 40 mg a day but she not want to take 40 a day due to insomnia and was taking 20 qd. Also because not getting better stopped augmentin after 5 days. She is coughing and has occasional yellow mucus. [facility] could not induce her arrhythmia . She saw Dr Thomas in follow up and was put back on amiodarone She has not felt the afib recently. She never tolerated BP meds as would always feel dizzy and fall. 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 dysplastic cells 2012 no dysplastic cells so 2 years 2014 possible dysplasia 6 mo again Cancer ([facility]) Candidal esophagitis (HCC) COPD COPD (chronic obstructive pulmonary disease) ([facility]) 08/24/2008 Depression GERD (gastroesophageal reflux disease) 2009 barretts MANZANITA (hard of hearing) left Malignant neoplasm of bronchus and lung, unspecified site 1990 Osteopenia 2012 Frax 7.6 and .8 Other and unspecified hyperlipidemia Postmenopausal Sinusitis Squamous cell carcinoma of hand 2017 SVT (supraventricular tachycardia) ([facility]) Tobacco use disorder Family History Problem Relation [...] puff by mouth four times a day doxycycline (VIBRAMYCIN) 100 MG Oral Tab Take 100 mg by mouth TWICE DAILY. fluticasone (FLONASE) 50 MCG/ACT Nasal Suspension [place] 2 Sprays in nose DAILY. Lansoprazole 30 [...] use as directed 1-2 TIMES PER DAY predniSONE (DELTASONE) 10 MG Oral Tab Take 1-3 Tabs by mouth DAILY. 3 for 3 days then 2 for 3days then 1 for 3 days predniSONE (DELTASONE) 20 MG Oral Tab Take 2 Tabs by mouth DAILY. ( Patient taking differently: Take 10 mg by mouth DAILY.) No current facility-administered medications for this visit. [...] Last attempt to quit: 11/09/2017 Years since quittin.9 Smokeless tobacco: Never Used Substance and Sexual Activity Alcohol use: No Alcohol/week: 0.0 standard drinks Drug use: No Sexual activity: Yes Partners: Male Lifestyle Physical activity Days per week: Not on file Minutes per session: Not on file Stress: Not on file Relationships Social connections Talks on phone: Not on file Gets together: Not on file Attends christianity service: Not on file Active member of [...] Concern No Social History Narrative Lives in [facility], spends winter in [place] smokes REVIEW OF SYSTEMS: Review of Systems Psychiatric/Behavioral: Never took remeron Objective PHYSICAL EXAM: VITALS: BP (!) 142/80 | Pulse 83 | Ht 5' 2" (1.575 m) | Wt 121 lb 6.4 oz ( 55.1 kg) | SpO2 96% | BMI 22.20 kg/m Body mass index is 22.2 kg/m. Physical Exam Vitals signs reviewed. Constitutional: Appearance: She is not ill-appearing. HENT: Ears: Comments: Ears - bilateral TM's and external ear canals normal, right external ear normal, left externalear normal Mouth/Throat: Pharynx: Oropharynx is clear. No posterior oropharyngeal erythema. Cardiovascular: Rate and Rhythm: Normal rate and regular rhythm. Pulmonary: Effort: Pulmonary effort is normal. Breath sounds: Wheezing and rhonchi present. Musculoskeletal: Right lower leg: No edema. Left lower leg: No edema. Lymphadenopathy: Cervical: No cervical adenopathy. ASSESSMENT / IMPRESSION: ICD-9-CM ICD-10-CM 1. Acute bronchitis, unspecified organism 466.0 J20.9 2. Pulmonary emphysema, unspecified emphysema type (HCC) with a flare. Will change prednisone to 30mg and taper and change antibiotics to doxy 492.8 J43.9 3. Atrial tachycardia (HCC) Her BP high today but when try to give med her BP too low and she falls. No changes yet but keep with amiodarone I agree she will likely revert to afib but amio long termnot ideal either 427.89 I47.1 Plan Author: Andrea Su MD 10/25/2019 20:34 documented in this encounter Plan of Treatment [...] Type Problems Progress Blood Pressure Blood Pressure 142/80 No Sharlene, < 150/90 (10/25/2019 MD Andrea 3:34 PM EST) Note: This is an individualized [...] to eventually stop. 4. Connect to behavior counseling-[facility] Quit lines ([phone] or [facility]- [phone]), stop smoking groups-[facility] or Keep a regular sleep schedule Lifestyle No Rosa Barlow FNP Note: This is an individualized lifestyle goal for Jaqueline Campos [place]: Please maintain a regular sleep schedule. [...] Diagnosis Pulmonary emphysema, unspecified emphysema type (HCC) Atrial tachycardia (HCC) Other specified cardiac dysrhythmias Acute bronchitis, unspecified organism documented in this encounter Insurance Payer Benefit Plan / Subscriber ID Effective Dates Phone Address Type Group MEDICARE MEDICARE PART A & B xxxxxxxxxxx 1993-Present Medicare [facility] xxxxxxxxx 2016-Present [place] Guarantor Name Account Type Relation to Date of Phone Billing Patient Address Jaqueline Mack Personal/Family 1945 [phone] [address] (Home) [place], [place] [phone] [id number] (Work) documented as of this encounter
--- OUTSIDE RECORDS SUMMARY | 2019-12-15 18:35 | XMS REPORT | Summary of Care ---
:1945 Author Organization [facility] Address [address] [address] Care Team Providers Name Role Phone Andrea Su Primary Care Provider Bernabe Higginbotham MD Unavailable Reason for Visit Reason Comments Congestion nasal and chest congestion. yellow phlegm, SOB, feeling warm all for 1 week Encounter Details Date Type Department Care Team Description 10/17/2019 Office Visit [place] [facility], COPD with acute exacerbation (HCC) (Primary Dx); Practice PA-C Acute non-recurrent frontal sinusitis [address] [place] [address] [place] [address] [phone] Allergies No Known Allergiesdocumented as of this encounter (statuses as of 10/17/2019) Medications Medication Sig Dispensed Refills Start Date End Date Status Multiple Vitamin Take by mouth 0 Active (MULTI-VITAMIN PO) DAILY. aspirin (ECOTRIN) 81 MG Take 81 mg by 0 Active Oral Tab EC mouth DAILY. Multiple Take 2 Caps by 0 Active Vitamins-Minerals (ICAPS mouth DAILY. PO) Lansoprazole 30 MG Oral take 1 capsule 180 Cap 1 02/09/2019 Active CAPSULE DELAYED RELEASE by mouth twice a day COMBIVENT RESPIMAT inhale 1 puff by 12 g 3 03/07/2019 Active 20-100 MCG/ACT mouth four times Inhalation Aero a day SolnIndications: COPD (chronic obstructive pulmonary disease) (HCC) fluticasone (FLONASE) 50 [place] 2 Sprays 1 Each 2 05/30/2019 Active [...] PER InhalerIndications: DAY Tobacco abuse albuterol HFA (VENTOLIN) inhale 2 puffs 25.5 g 1 08/01/2019 Active 108 (90 Base) MCG/ACT by mouth every 4 Inhalation Aero hours SolnIndications: Pulmonary emphysema, unspecified emphysema type (HCC) Levocetirizine Take 1 Tab by 90 Tab 1 08/03/2019 Active Dihydrochloride 5 MG mouth DAILY. Oral TabIndications: Seasonal allergies mirtazapine (REMERON) 15 Take 1 Tab by 30 Tab 1 08/09/2019 Active MG Oral Tab mouth EVERY BEDTIME. amiodarone (PACERONE, Take 100 mg by 0 Active CORDARONE) 100 MG Oral mouth. Tab amoxicillin-clavulanic Take 1 Tab by 20 Tab 0 10/17/2019 Active acid (AUGMENTIN 875 MG) mouth TWICE 875-125 MG Oral Tab DAILY. fluconazole (DIFLUCAN) Take 1 Tab by 2 Tab 0 10/17/2019 Active 150 MG Oral Tab mouth DAILY. predniSONE (DELTASONE) Take 2 Tabs by 10 Tab 0 10/17/2019 Active 20 MG Oral Tab mouth DAILY. documented as of this encounter (statuses as of 10/17/2019) Active Problems Problem Noted Date Atrial tachycardia [...] as of this encounter (statuses as of 10/17/2019) Resolved Problems Problem Noted Date Resolved Date Tobacco abuse 08/24/2008 04/14/2019 Overview: Began age 17, 1 packs per day Quit 11/17, reastarted 03/17 documented as of this encounter (statuses as of 10/17/2019) Immunizations Name Administration Dates Next Due Influenza [...] Sign Reading Time Taken Comments Blood Pressure 124/78 10/17/2019 2:30 PM EST Pulse 85 10/17/2019 2:30 PM EST Temperature 36.3 10/17/2019 2:30 PM EST C (97.4 F) Respiratory Rate - - Oxygen Saturation 98% 10/17/2019 2:30 PM EST Inhaled Oxygen Concentration - - Weight 54 kg (119 lb) 10/17/2019 2:30 PM EST Height 157.5 cm (5' 2") 10/17/2019 2:30 PM EST Body Mass Index 21.77 10/17/2019 2:30 PM EST documented in this encounter Patient Instructions Patient InstructionsConsuelo Torres PA-C - 10/17/2019 2:40 PM ESTEscribed Augmentin 875mg, 1 pill twice a day x 10 days, take with food Escribed Diflucan 150mg, take if vaginal yeast develops Escribed Prednisone 40mg, take in morning with breakfast daily x 5 days Continue with inhalers Avoid creamy foods and drink Rest, gargle with warm salt water Push water, soup, juice, tea with honey/lemon OTC Tylenol/Ibuprofen for fever/pain Cool mist vaporizer at bedtime Call if not improving or with any questions or concerns documented in this encounter Progress Notes Consuelo Torres PA-C - 10/17/2019 2:40 PM EST PATIENT: Jaqueline Mack : 1945 DATE OF SERVICE: 10/17/2019 REFERRING PRACTITIONER: Self-Referred PRIMARY CARE PROVIDER: Andrea Su CHIEF COMPLAINT: Chief Complaint Patient presents with Congestion nasal and chest congestion. yellow phlegm, SOB, feeling warm, Accompanied by daughter Subjective HISTORY OF PRESENT ILLNESS: Jaqueline Mack is a 74-y.o. female who presents with chest and nasal congestion , SOB, yellow sputum,feeling feverish, sinus pressure x 1 week Home heat is hot, forced air, not using humidifier Has COPD using albuterol inhaler, nebulizer, combivent inhaler, Took no OTC cold meds Stopped smoking, using nicotine inhaler Denies fever, chills, nausea, vomiting, diarrhea, chest pains Could not do cardiac ablation 09/28/[address] 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 dysplastic cells 2012 no dysplastic cells so 2 years 2015 possible dysplasia 6 mo again Candidal esophagitis (HCC) COPD COPD (chronic obstructive pulmonary disease) ([facility]) 08/24/2008 Depression GERD (gastroesophageal reflux disease) 2009 barretts KETCHIKAN (hard of hearing) left Malignant neoplasm of bronchus and lung, unspecified site 1990 Osteopenia 2012 Frax 7.6 and .8 Other and unspecified hyperlipidemia Postmenopausal Sinusitis Squamous cell carcinoma of hand 2017 SVT (supraventricular tachycardia) ([facility]) Tobacco use disorder Past Surgical History: Procedure Laterality Date CHOLECYSTECTOMY [place] REMOVAL OF LUNG,EXTRAPLEURAL 1990 small cell cancer, right lung Family History Problem Relation Age of Onset [...] day fluticasone (FLONASE) 50 MCG/ACT Nasal Suspension [place] 2 Sprays in nose DAILY. Lansoprazole 30 MG Oral CAPSULE DELAYED RELEASE take 1 capsule by mouth twice a day Levocetirizine Dihydrochloride 5 MG Oral Tab Take 1 Tab by mouth DAILY. magnesium oxide 500 MG Oral Tab Take 250 mg by mouth DAILY. mirtazapine (REMERON) 15 [...] file Gets together: Not on file Attends mormon service: Not on file Active member of [...] Concern No Social History Narrative Lives in [facility], spends winter in [place] smokes REVIEW OF SYSTEMS: Skin: negative skin lesions Eyes: negative visual blurring Ears/Nose/Throat: positive rhinorrhea, sinus pressure, post nasal drip Respiratory: positive cough, COPD, SOB Cardiovascular: negative chest pain Gastrointestinal: negative abdominal pain, constipation, diarrhea, nausea or vomiting Genitourinary: negative burning on urination, dysuria or vaginal discharge Musculoskeletal: positive arthritis/joint pain Neurologic: negative numbness or tingling of feet or hands Psychiatric: negative anxiety Hematologic/Lymphatic/Immunologic: positive allergies. Positive lung cancer Endocrine: negative diabetes or hot flashes/sweats Objective PHYSICAL EXAMINATION: VITALS: BP 124/78 (BP Location: Right arm, Patient Position: Sitting) | Pulse 85 | Temp 97.4 F (36.3 C) | Ht 5' 2" (1.575 m) | Wt 119 lb (54 kg) | SpO2 98% | BMI 21.77 kg/m Body mass index is 21.77 kg/m. General appearance: alert, mild distress, cooperative, oriented times 3 Skin: Skin color, texture, turgor normal. No rashes or lesions. Head: Normocephalic. No masses, lesions, tenderness or abnormalities Eyes: conjunctivae/corneas clear. PERRL, EOM's intact. Ears: positive findings: TMs bulging bilaterally Nose/Sinuses: positive findings: mucosa erythematous and swollen, clear rhinorrhea, frontal and maxillary sinuses tender to palpation Oropharynx: positive findings: mild oropharyngeal erythema, post nasal drip present Neck: Neck supple, FROM. No cervical or supraclavicular adenopathy. Lungs: Diffuse rhonchi and reduced breath sounds throughout Heart: RRR. No murmur, clicks or gallops. No peripheral edema . IMPRESSION: ICD-9-CM ICD-10-CM 1. COPD with acute exacerbation (HCC) 491.21 J44.1 2. Acute non-recurrent frontal sinusitis 461.1 J01.10 Plan PLAN: Escribed Augmentin 875mg, 1 pill twice a day x 10 days, take with food Escribed Diflucan 150mg, take if vaginal yeast develops Escribed Prednisone 40mg, take in morning with breakfast daily x 5 days Continue with inhalers Avoid creamy foods and drink Rest, gargle with warm salt water Push water, soup, juice, tea with honey/lemon OTC Tylenol/Ibuprofen for fever/pain Cool mist vaporizer at bedtime Call if not improving or with any questions or concerns Author: Consuelo Torres PA-C 10/17/2019 14:25 documented in this encounter Plan of Treatment Date Type Specialty Care Team Description 10/25/2019 Office Visit Family Practice Andrea Su MD [address] [id number] Health Maintenance Due Date Last Done Comments [...] 09/21/2020 09/21/2019, 09/21/2019 OSTEOPOROSIS SCREENING 08/05/2023 08/05/2013 HEPATITIS C SCREENING Completed 07/04/2014 PNEUMOCOCCAL 65+YRS Completed 08/10/2015, 07/19/2013, 03/14/2010 INFLUENZA VACCINE Completed 08/09/2019, 08/06/2018, 07/19/2014, Additional history exists HPV IMMUNIZATION SERIES Aged Out No longer eligible based on patient's age to complete this topic MENINGOCOCCAL VACCINE IMM Aged Out No longer eligible based on patient's age to complete this topic documented as of this encounter Goals Goal Patient Goal Associated Recent Patient-Stated? Author Type Problems Progress Blood Pressure Blood Pressure 124/78 No Sharlene, < 150/90 (10/17/2019 MD Andrea 2:30 PM EST) Note: This is an individualized [...] behavior counseling-[facility] Quit lines ([phone] [facility]- [phone]), stop smoking groups-[facility] or Keep a regular sleep [...] filedocumented in this encounter Visit Diagnoses Diagnosis COPD with acute exacerbation (HCC) - Primary Obstructive chronic bronchitis with exacerbation Acute non-recurrent frontal sinusitis documented in this encounter Insurance Payer Benefit Plan / Subscriber ID Effective Dates Phone Address Type Group MEDICARE MEDICARE PART A & B xxxxxxxxxxx 1993-Present Medicare [facility] xxxxxxxxx 2016-Present [place] Guarantor Name Account Type Relation to Date of Phone Billing Patient Address Jaqueline Mack Personal/Family 1945 [address] (Home) [place], [place] [phone] [id number] (Work) documented as of this encounter
[2019-12-15 18:40] LABS: INR 0.97 (0.82-1.09)
[2019-12-15] MEDS ORDERED: Azithromycin TAB* 250 MG PO ONE (18:41)
[2019-12-15 18:59] LABS: ALT 15 U/L (7-52); AST 18 U/L (13-39); Albumin 4.1 g/dL (3.2-5.2); Albumin/Globulin Ratio 1.5 (1-3); Alkaline Phosphatase 89 U/L (34-104); Anion Gap 10 mmol/L (2-11); BUN/Creatinine Ratio 15.6 (8-20); Blood Urea Nitrogen 10 mg/dL (6-24); C Reactive Protein 4.19 mg/L (<8.01); CO2 Carbon Dioxide 25 mmol/L (22-32); Calcium 9.7 mg/dL (8.6-10.3); Chloride 95 mmol/L (101-111); EGFR African American 110.4 (>60); EGFR Non-African American 91.2 (>60); Globulin 2.8 g/dL (2-4); Glucose 138 mg/dL (70-100); Magnesium 2.1 mg/dL (1.9-2.7); Potassium 3.8 mmol/L (3.5-5.0); Sodium 130 mmol/L (135-145); Total Protein 6.9 g/dL (6.4-8.9)
[2019-12-15 19:12] LABS: Influenza A Molecular Negative (Negative); Influenza B Molecular Negative (Negative)
[2019-12-15 19:17] LABS: Troponin I 0.57 ng/mL (<0.03)
[2019-12-15] MEDS ORDERED: Pantoprazole TAB * 40 MG TAB PO ONE (19:37)
[2019-12-15] MEDS ORDERED: Aspirin 81 mg CHEW TAB* 81 MG TAB.CHEW PO ONE (19:48)
[2019-12-15] MEDS ORDERED: Iohexol 350* (CONTRAST) 500 ML MDV IV ONE (19:54)
[2019-12-15 22:17] LABS: Troponin I 0.88 ng/mL (<0.03)
--- NOTE | 2019-12-16 00:10 | HP ---
CC: Cassidy Ayala * HISTORY AND PHYSICAL: DATE OF ADMISSION: 12/15/19 CHIEF COMPLAINT: Dyspnea. HISTORY OF PRESENT ILLNESS: Ms. Mack is a 74-year-old woman with history of COPD, who developed dyspnea beyond her baseline the day prior to admission. She states she went to her primary care office and was told she had wheezing and was given Symbicort inhaler to take. She was not started on antibiotics or oral steroids at that time. Today, during the day, her dyspnea became much worse and she had an episode where she just felt that she was not breathing at all and felt panicky. She has a cough, which she feels is nonproductive, especially she cannot get anything out. She denies any chest pain, abdominal pain, palpitations, although she did feel her heart pounding when she was having trouble breathing. The patient denies any history of heart disease of ischemic nature, but she does admit to having heart rhythm problems in the past. Her recent medical history also includes an admission in August 2019 where she had supraventricular tachycardia and was on amiodarone drop in ICU. The patient describes having EP studies subsequent to that, which were unable to reproduce arrhythmia and no interventions were made. PAST MEDICAL HISTORY: Includes COPD, paroxysmal supraventricular tachycardia, hypomagnesemia, history of small cell lung cancer in 1995, GERD/hiatal hernia, history of Valladares's esophagus. PAST SURGICAL HISTORY: Right lower lobe lobectomy in 1995, status post 5/6 rounds of chemotherapy, declined radiation. She has a history of cholecystectomy and tubal ligation. MEDICATIONS ON ADMISSION: 1. Albuterol nebulizer q.4 hours p.r.n. wheezing. 2. Albuterol inhaler 2 puffs q.4 hours p.r.n. wheezing as an alternative to nebulizer. 3. Albuterol/ipratropium 1 inhalation 4 times a day. 4. Amiodarone 100 mg p.o. every other day. 5. Cetirizine 10 mg p.o. daily. 6. Fluticasone 2 sprays both nostrils daily. 7. Lansoprazole 30 mg p.o. b.i.d. 8. Levocetirizine 5 mg p.o. daily. 9. Magnesium oxide 250 mg p.o. daily. 10. Multivitamin 1 tab p.o. daily. 11. Nicotine nasal spray 1 spray intranasally twice a day. ALLERGIES: TRIMETHOPRIM, SULFAMETHOXAZOLE, CHANTIX, ATENOLOL, DILTIAZEM, POWDER FROM ALL GLOVES. FAMILY HISTORY: Notable for mother who of Alzheimer's and a stroke. Father at age 92 of heart attack. Her sister at age 83 of heart attack. Her sister at age 41 of complications with diabetes. 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 She is . She has 2 children. She quit tobacco 2 years ago and smoked a pack a day for some decades, she cannot remember. Denies alcohol or drug use. REVIEW OF SYSTEMS: The patient denies any fevers, weight loss, or anorexia. The patient denies any chest pain or palpitations. The patient denies any hemoptysis, but does have cough and shortness of breath. The patient denies any nausea, vomiting, diarrhea, constipation, or abdominal pain. Remainder of her 14-point review of systems is negative other than mentioned in the HPI. PHYSICAL EXAMINATION GENERAL: She is alert, in no acute distress. VITAL SIGNS: Temperature is 36.4, pulse 110 to 115, respirations are 20, blood pressure is 123/78, O2 sats 93% on room air. HEENT: Head is normocephalic, atraumatic. Sclerae anicteric. Pupils are equal , round and reactive to light and accommodation. Oropharynx is moist. No lesions. NECK: No JVD. No carotid bruit. No thyromegaly. LUNGS: Clear to auscultation, but diminished throughout. HEART: Tachycardic, regular. No murmurs. ABDOMEN: Soft, nontender. Positive bowel sounds. No hepatosplenomegaly. EXTREMITIES: No peripheral edema. Dorsalis pedis pulses are 1+ bilaterally. NEUROLOGIC: Cranial nerves II through XII intact. Motor strength is 5/5 throughout. Deep tendon reflexes are symmetric. She is alert and oriented x3. DIAGNOSTIC STUDIES/LAB DATA: Sodium 130, potassium 3.8, chloride 95, bicarb 25 , BUN 10, creatinine 0.64, glucose 138, calcium 9.7, albumin 4.1, AST 18, ALT 15 , lactic acid 0.7. INR 0.97. Troponin is 0.57. BNP is 101. White count 12.3 , hemoglobin 14.2, hematocrit 41%, platelets are 348. Influenza swab is negative. EKG shows sinus tachycardia with early transition. No ST or T-wave changes to suggest ischemia. Chest x-ray shows no infiltrates or effusions. CT angiogram of the chest shows no pulmonary emboli, no infiltrates and a large hiatal hernia. ASSESSMENT AND PLAN: A 74-year-old woman presenting with chronic obstructive pulmonary disease exacerbation. She will be admitted to the medical floor and treated with nebulizers and continuation of IV steroids and azithromycin to treat bacterial bronchitis and reduce inflammation. She does not require supplemental oxygen at this time, but that can be added later as needed. I expect she will be here 2 to 3 days as she has a moderate chronic obstructive pulmonary disease exacerbation. She has an elevated troponin, which could be due to demand ischemia. She has no clear symptoms to correlate with such as chest pain or chest pressure. The patient will be followed on telemetry and have serial EKGs and enzymes to rule out type 1 myocardial infarction. We could consider exercise stress test when she is stable in consultation with Cardiology. Fluids and electrolytes, the patient is euvolemic. I will check her magnesium as she has a history of low magnesium. Code status is full. DVT prophylaxis will be with subcutaneous Lovenox. She is at high risk of DVT given her lung disease and her age. [id number]/[facility] #: [id number] TERESA
[2019-12-16] MEDS: Enoxaparin(*) 40 MG/0.4 ML SYR SUBCUT SCH ×2 (00:21→21:42)
[2019-12-16] MEDS: Calcium Carbonate CHEW TAB* 500 MG (TUMS) PO PRN ×3 (00:55→23:12)
[2019-12-16] MEDS: methylPREDNISolone SOD 40 MG* 1 ML VIAL IV SCH ×2 (00:56→09:05)
[2019-12-16 01:40] LABS: Troponin I 1.11 ng/mL (<0.03)
[2019-12-16] MEDS: Melatonin 3 MG TAB PO PRN ×2 (01:59→21:42)
[2019-12-16 04:16] LABS: Troponin I 1.11 ng/mL (<0.03)
[2019-12-16 05:55] LABS: BUN/Creatinine Ratio 14.9 (8-20); Calcium 9.5 mg/dL (8.6-10.3); EGFR African American 93.3 (>60); EGFR Non-African American 77.1 (>60); Potassium 4.1 mmol/L (3.5-5.0)
[2019-12-16] MEDS ORDERED: Amiodarone TAB* 200 MG PO SCH ×2 (09:00)
[2019-12-16] MEDS: Magnesium Oxide TAB* 400 MG PO SCH (09:04)
[2019-12-16] MEDS: Pantoprazole TAB * 40 MG TAB PO SCH ×2 (09:04→21:40)
[2019-12-16] MEDS: NICOTINE 10 MG NASAL SCH ×2 (09:05→21:42)
[2019-12-16] MEDS: Albuterol HFA INHALER* 8 gm MDI INH PRN ×2 (09:40→15:37)
--- NOTE | 2019-12-16 15:50 | ECHO ---
*[facility]* [place] [address] Fax #: [phone] Transthoracic Echocardiogram Patient: Jaqueline Mack : 1945 Study Date: 12/16/2019 Age: 74 Gender: F HR: 100 bpm Height: 62 in /157.5 cm BSA: 1.56 m^2 Weight: 123.7 lb /56.2 kg BMI: 22.7 kg/m^2 *Senior Media Buyer: Julissa Umana [facility] *Referring Physician: * Jesús Tiwari *Reading Physician: * Jerson Krishna MD Indications: Elevated TROPS. History: Lung cancer, chemotherapy. Supraventricular tachycardia. Risk factors: Former tobacco use. Conclusions Summary: - Left ventricle: The cavity size is mildly reduced. Wall thickness is mildly increased. Systolic function is normal. The estimated ejection fraction is 50-55%. Possible hypokinesis of the midanteroseptal myocardium. Doppler parameters are consistent with abnormal left ventricular relaxation (grade 1 diastolic dysfunction). - Right ventricle: The cavity size is normal. Wall thickness is mildly increased. Systolic function is mildly to moderately reduced. More pronounced mid to distal free wall hypokinesis. - Compared to 02/2019, the right ventricular hypokinesis is more pronounced. Otherwise, similar to the prior study of 02/2019 including the subtle septal hypokinesis. Study data: Transthoracic echocardiogram. Procedure: Transthoracic echocardiography was performed. Image quality was fair. Cardiac stitus altered due to right lobectomy, windows from right apical region and subcostal. Complete 2D, spectral Doppler, and color flow Doppler. Location: Bedside. Patient status: Inpatient. Patient room number: 443 02. Rhythm: Tachycardia. Findings Left ventricle: The cavity size is mildly reduced. Wall thickness is mildly increased. Systolic function is normal. The estimated ejection fraction is 50-55%. Regional wall motion abnormalities: Possible hypokinesis of the midanteroseptal myocardium. Doppler parameters are consistent with abnormal left ventricular relaxation (grade 1 diastolic dysfunction). Right ventricle: The cavity size is normal. Wall thickness is mildly increased. Systolic function is mildly to moderately reduced. More pronounced mid to distal free wall hypokinesis. Right atrium: The atrium is normal in size. Mitral valve: The leaflets are normal thickness. There is no evidence of stenosis. There is no significant regurgitation. Aortic valve: The leaflets are mildly thickened. There is no evidence of stenosis. There is no significant regurgitation. Tricuspid valve: The leaflets are normal thickness. There is no evidence of stenosis. There is no significant regurgitation. Pulmonic valve: Not well visualized. Aorta: The aortic root appears normal. Pericardium: There is no significant pericardial effusion. Pulmonary arteries: Systolic pressure is within the normal range. Systemic veins: Inferior vena cava: Not well visualized. Measurements Left ventricle Value Ref Right atrium Value Ref JOSEF, LAX (L) 2.6 cm 3.8 - 5.2 SI dim, ES 4.4 cm 3.4 - 5.3 ESD, LAX (L) 1.8 cm 2.2 - 3.5 ML dim, ES, A4C 2.9 cm 2.6 - 4.4 FS, LAX 32 % 27 - 45 Estimated RAP 8 mm Hg --------- PW, ED, LAX (H) 1.0 cm 0.6 - 0.9 E', lat lindsey, TDI (L) 3.7 cm/sec >=10.0 Aortic valve Value Ref E/e', lat lindsey, 22 Lindsey diam, ED 1.9 cm ------- -- TDI Peak v, S 1.26 m/sec --------- E', med lindsey, TDI (L) 6.0 cm/sec >=7.0 VTI, S 22.1 cm ---- ----- E/e', med lindsey, 14 Mean grad, S 4.0 mm Hg ------- -- TDI Peak grad, S 6.0 mm Hg --------- E', avg, TDI 4.9 cm/sec E/e', avg, TDI (H) 17 <=14 Mitral valve Value Ref Peak E 0.82 m/sec --------- LVOT Value Ref Peak A 1.17 m/sec --------- Peak cheryle, S 0.97 m/sec Decel time 87 ms --------- Mean grad, S 2 mm Hg Peak grad, D 2.7 mm Hg --------- Peak E/A ratio 0.7 --------- Ventricular septum Value Ref IVS, ED (H) 1.0 cm 0.6 - 0.9 Tricuspid valve Value Ref TR peak v 1.3 m/sec <=2.8 Right ventricle Value Ref Peak RV-RA grad, S 7 mm Hg --------- AW thickness, ED 0.5 cm 0.1 - 0.5 JOSEF, LAX 1.6 cm Aortic root Value Ref JOSEF minor ax, A4C 1.9 cm 1.9 - 3.5 Root diam 2.6 cm <3.8 mid Root max diam, ED 2.6 cm <3.8 Pressure, S 15 mm Hg Pulmonary artery Value Ref Left atrium Value Ref Pressure, S 15.0 mm Hg --------- AP dim, ES (L) 2.60 cm 2.70 - 3.80 ML dim, A4C 3.9 cm SI dim, A4C 4.4 cm Vol/bsa, ES, A/L 17 ml/m^2 16 - 34 Legend: (L) and (H) richard values outside specified reference range. Prepared and electronically signed by Jerson Krishna MD 12/16/2019 15:49
[2019-12-16] MEDS ORDERED: Acetaminophen TAB* 325 MG PO PRN (16:12)
[2019-12-16] MEDS ORDERED: Azithromycin 500 mg/250 ml NS 500 MG/250 ML BAG IVPB SCH (18:00)
[2019-12-16] MEDS ORDERED: PROCHLORPERAZINE INJ 5 MG/ML 2 ML VIAL IV PRN (19:51)
--- NOTE | 2019-12-16 20:08 | DS ---
CC: Dr. Su DISCHARGE SUMMARY: DATE OF ADMISSION: DATE OF DISCHARGE: 12/17/19 HISTORY OF PRESENT ILLNESS/HOSPITAL COURSE: This 74-year-old woman presented with dyspnea for about 1 day before admission. She went to her primary care office and was given Symbicort inhaler. That d ay, she became worse with a nonproductive cough. The rest of the history and physical exam are detai led in admission noted. The patient was felt to have a COPD exacerbation. She was treated with intravenous azithromycin and intravenous steroids. She did well in the hospital. She was saturating 95% on room air on 12/16/19. She felt much better. Her troponin levels were elevated, initial one in the emergency room was 0.57, it plateaued at 1.11. She had an echocardiogram, which showed normal left ventricular systolic function and grade 1 diasto lic dysfunction. Right ventricle showed a mild decrease in systolic function. The patient will have a tapering dose of steroids. I would recommend that when her pulmonary functio n has improved some more and stabilized, she have an outpatient stress test. FINAL DIAGNOSES: 1. Chronic obstructive pulmonary disease exacerbation. 2. Probable demand ischemia. DISCHARGE MEDICATIONS: 1. Azithromycin 250 mg daily for 4 days. 2. Mometasone/formoterol 250/5 two puffs b.i.d.. 3. Prednisone 10 mg to taper from 5 to 0 over 5 days. 4. Cetirizine 10 mg daily p.r.n.. 5. Fluticasone nasal sprays, 2 sprays both nares daily p.r.n. 6. Albuterol/ipratropium inhaler 4 times daily. 7. Albuterol 2.5 mg by inhalation every 4 hours p.r.n. 8. Nicotine nasal spray 10 mg as prescribed. 9. Multivitamin with mineral daily. 10. Magnesium oxide 250 mg daily. 11. Levocetirizine 5 mg daily. 12. Lansoprazole 30 mg b.i.d. 13. Amiodarone 100 mg every other day. CONDITION ON DISCHARGE: Improved. DISPOSITION ON DISCHARGE: Discharged home. [id number]/[facility] #: [id number]
[2019-12-16] MEDS: Mometasone/Formoter 200/5 MDI INH SCH (20:12)
[2019-12-16] MEDS: Albuterol 2.5 MG/3 ML NEB.SOL* (0.083%) INH PRN (20:21)
[2019-12-17] MEDS: Mometasone/Formoter 200/5 MDI INH SCH (07:09)
[2019-12-17] MEDS: Albuterol 2.5 MG/3 ML NEB.SOL* (0.083%) INH PRN (07:09)
[2019-12-17] MEDS: NICOTINE 10 MG NASAL SCH (08:00)
[2019-12-17] MEDS: Pantoprazole TAB * 40 MG TAB PO SCH (08:04)
[2019-12-17] MEDS: Magnesium Oxide TAB* 400 MG PO SCH (08:04)
[2019-12-17 08:31] VITALS: BP 127/62
== END 2019-12-17 09:50 | disposition home or self-care (01) | DRG 191 ==
LOC: ED 17:13 → MED 21:38 → MEDTELE 23:37
PROVIDERS: ADMIT Internal Medicine; ATTEND Internal Medicine
DX: J44.1 Chronic obstructive pulmonary disease with (acute) exacerbation (principal); I24.8 Other forms of acute ischemic heart disease; K22.70 Barrett's esophagus without dysplasia; K21.9 Gastro-esophageal reflux disease without esophagitis; I10 Essential (primary) hypertension; I48.91 Unspecified atrial fibrillation; K44.9 Diaphragmatic hernia without obstruction or gangrene; E83.42 Hypomagnesemia; Z85.118 Personal history of other malignant neoplasm of bronchus and lung; Z90.2 Acquired absence of lung [part of]; Z79.51 Long term (current) use of inhaled steroids; Z79.899 Other long term (current) drug therapy; Z88.2 Allergy status to sulfonamides; Z88.8 Allergy status to other drugs, medicaments and biological substances; Z83.3 Family history of diabetes mellitus; Z82.49 Family history of ischemic heart disease and other diseases of the circulatory system; Z82.0 Family history of epilepsy and other diseases of the nervous system; Z82.3 Family history of stroke; Z87.891 Personal history of nicotine dependence
CPT/HCPCS: 36415; 71046; 71275; 80048; 80053; 83605; 83735; 83880; 84484; 85025; 85610; 86140; 87040; 93005; 93306; 94640; 96374; 96375; 99284; A9270-GY; J0456; J0780; J1650; J2920; J2930; J3475; J7512; Q9967

== ENCOUNTER 2020-12-03 00:47 | Observation (INO) ==
[2020-12-03] MEDS ORDERED: methylPREDNISolone 125 mg 2 ML VIAL IV ONE (01:00)
[2020-12-03] MEDS ORDERED: Magnesium Sulfate 2 gm BAG 2 GM/50 ML BAG IVPB ONE (01:00)
[2020-12-03] MEDS ORDERED: Albuterol/Ipratropium NEB.SOL (2.5/0.5 MG) 3 ML NEB.SOLN INH ONE ×2 (01:02→02:41)
[2020-12-03 01:11] LABS: ABS Basophils 0.1 10^3/ul (0-0.2); ABS Eosinophils 0.3 10^3/ul (0-0.6); ABS Lymphocytes 1.8 10^3/ul (1.0-4.8); ABS Monocytes 0.8 10^3/ul (0-0.8); ABS Neutrophils 5.2 10^3/ul (1.5-7.7); Eosinophil % 3.3 %; Hematocrit 38 % (35-47); Hemoglobin 13.3 g/dL (12.0-16.0); Lymphocyte % 22.2 %; Mean Corpuscular HGB Conc 35 g/dL (31-36); Mean Corpuscular Hemoglobin 31 pg (27-31); Mean Corpuscular Volume 90 fL (80-97); Mean Platelet Volume 6.8 fL (7.4-10.4); Nucleated Red Blood Cells % 0.1; Platelet Count 382 10^3/uL (150-450); Red Blood Count 4.26 10^6 /uL (3.70-4.87); Red Cell Distribution Width 13 % (10-15); White Blood Count 8.2 10^3/uL (3.5-10.8)
[2020-12-03 02:08] LABS: Albumin 4.2 g/dL (3.2-5.2); Calcium 10.2 mg/dL (8.6-10.3); Magnesium 1.9 mg/dL (1.9-2.7); Potassium 4.4 mmol/L (3.5-5.0); Total Bilirubin 0.3 mg/dL (0.2-1.0)
[2020-12-03 02:11] LABS: Urine Appearance Clear; Urine Bilirubin Negative (Negative); Urine Blood 1+ (Negative); Urine Color Yellow; Urine Glucose Negative (Negative); Urine Ketones Negative (Negative); Urine Nitrite Negative (Negative); Urine Protein Negative (Negative); Urine Specific Gravity 1.006 (1.010-1.030); Urine Urobilinogen Negative (Negative)
[2020-12-03 02:14] LABS: Albumin/Globulin Ratio 1.8 (1-3); BUN/Creatinine Ratio 15.1 (8-20); C Reactive Protein 5.99 mg/L (<8.01); EGFR African American 94.6 (>60); EGFR Non-African American 78.1 (>60); Globulin 2.3 g/dL (2-4); Total Protein 6.5 g/dL (6.4-8.9)
[2020-12-03 02:20] LABS: Urine Bacteria Absent (Absent); Urine Red Blood Cell Trace(0-2/hpf) (Absent); Urine White Blood Cell Absent (Absent)
[2020-12-03] MEDS ORDERED: Amoxicillin/Clavul 875/125 TAB (Augmentin 875 tab) PO ONE (02:39)
[2020-12-03] MEDS ORDERED: Diltiazem IV push/loading dose 5 MG/ML 5 ML vial (25 mg) IV SLOW PU ONE (04:44)
[2020-12-03] MEDS ORDERED: Enoxaparin 40 MG/0.4 ML SYR SUBCUT SCH (05:00)
[2020-12-03] MEDS ORDERED: Diltiazem (ADVAN VIAL) 100 MG/100 ML ADDV.BAG IV SCH (05:00)
[2020-12-03 05:07] LABS: Activated Partial Thrombo Time 29.9 seconds (26.0-38.0); Digoxin 0.3 ng/ml (0.8-2.0); INR 0.94 (0.82-1.09)
[2020-12-03] MEDS ORDERED: Digoxin IV 0.5 MG/2 ML AMP (0.25 MG/ML) IV SLOW PU ONE (05:31)
[2020-12-03] MEDS ORDERED: Aspirin EC 81 mg TAB.EC (enteric coated) PO SCH (09:00)
[2020-12-03] MEDS ORDERED: Azithromycin 500 mg/250 ml NS 500 MG/250 ML BAG IVPB SCH (10:00)
[2020-12-03] MEDS ORDERED: Mometasone/Formoter 100/5 MDI INH PRN (10:00)
[2020-12-03] MEDS ORDERED: methylPREDNISolone SOD 40 mg/ml 1 ml VIAL IV SCH (10:00)
[2020-12-03] MEDS ORDERED: Albuterol HFA INHALER 8 gm MDI INH SCH (11:00)
[2020-12-03 12:17] VITALS: BP 137/74
== END 2020-12-03 13:45 | disposition home or self-care (01) ==
LOC: ED 00:47 → MED 00:47
PROVIDERS: ADMIT Internal Medicine; ATTEND Internal Medicine